=== PATIENT | male | born 1940 | race Caucasian/White ===

== ENCOUNTER 2020-04-09 13:32 | Emergency (ER) | payer MEDICARE, SELFPAY ==
--- NOTE | ~2020-04-09 | CT_ITS ---
EXAMINATION: CT CHEST WITHOUT CONTRAST CLINICAL INFORMATION: abnormal CXR, eval for pna . COMPARISON: I do not have any recent chest x-ray for comparison. I do have the visualized lung apices on the 06/02/[address] scan and the visualized lung bases on the 03/21/2015 CT scan of the abdomen. TECHNIQUE: Multidetector volumetric imaging was performed from the thoracic inlet through the lung bases without contrast. Sagittal and coronal reformatted images were obtained on the technologist workstation. Soft tissue and lung algorithms evaluated. Thick slab MIP images were performed to increase nodule conspicuity. This CT examination was performed using dose optimization techniques as appropriate, variously including the following: *Automated exposure control *Adjustment of mA and/or kV according to patient size (this includes techniques or standardized protocols for targeted exams where dose is matched to indication/reason for exam; i.e. extremities or head) *Use of iterative reconstruction technique DLP: 349 mGy-cm. FINDINGS: LUNG: Background centrilobular emphysematous changes are seen. There are increased subpleural interstitial markings/reticulations seen without discrete honeycombing. Some of these changes are likely present in retrospect on the 2016 CT scan although these do appear to have progressed since that time. No bronchiectasis. Central airways are unremarkable. No dense consolidation. Several scattered tiny calcified granulomas incidentally noted on the right. MEDIASTINUM: Patient is status post sternotomy and CABG with marked vascular calcification in the coronary vessels. No bulky adenopathy with shotty mediastinal lymph nodes noted. PERICARDIUM/PLEURA: No significant effusion. No pleural mass or thickening. THYROID/VISUALIZED LOWER NECK: Unremarkable. CHEST WALL/AXILLA: Unremarkable. VISUALIZED UPPER ABDOMEN: Gallstones seen within the dependent portion of the contracted but otherwise unremarkable gallbladder CT/CT chest wo con IMPRESSION: Peripheral increased interstitial/reticular changes more suggestive of underlying interstitial lung disease such as UIP. I do not appreciate any discrete honeycombing or bronchiectasis at this time. Although in retrospect there were milder changes present on 2016, these have increased since that time. Superimposed atypical infectious etiology would be considered less likely but should be clinically correlated.
--- NOTE | 2020-04-09 14:04 | ECG_ITS ---
Test Reason : SOB Blood Pressure : / mmHG Vent. Rate : 061 BPM Atrial Rate : 061 BPM P-R Int : 228 ms QRS Dur : 140 ms QT Int : 452 ms P-R-T Axes : 046 001 130 degrees QTc Int : 455 ms Sinus rhythm with 1st degree A-V block Possible Left atrial enlargement Left bundle branch block Abnormal ECG No previous ECGs available Referred By: Emilia Herrera Electronically Signed By:OSBALDO MARTINS MD
--- NOTE | 2020-04-09 14:07 | ED.URI ---
HPI - URI/Sore Throat General Chief Complaint: Dyspnea Stated Complaint: cough - sent from [employer] [facility] Time Seen by Provider: 04/09/20 13:56 Source: patient Mode of arrival: ambulatory Limitations: no limitations History of Present Illness HPI Narrative: 79-year-old male with past medical history of aortic valve replacement, CABG x2, hypothyroidism, hypertension, hyperlipidemia here with productive cough with white sputum x4 days sent from urgent care for abnormal chest x-ray. COVID test reportedly negative. Chest x-rays concerning for moderate pulmonary edema with underlying pneumonia not excluded. No shortness of breath, chest pain, leg swelling, weight gain. Related Data Previous Rx's Medication Instructions Recorded benzonatate [Tessalon Perles] 100 mg PO TID PRN #10 cap 04/09/20 Allergies Allergy/AdvReac Type Severity Reaction Status Date / Time meperidine [From Demerol] AdvReac Unknown Verified 04/09/20 14:18 morphine AdvReac Unknown Verified 04/09/20 14:18 pregabalin [From Lyrica CR] AdvReac Unknown Verified 04/09/20 14:18 Review of Systems Review of Systems: Yes all other systems are reviewed and are negative Constitutional: Constitutional: Reports no additional constitutional complaints, Denies body ache(s), Denies chills, Denies fever(s), Denies headache(s) and Denies weakness Eyes: Eyes: Reports no additional eye complaints and Denies change in vision ENT: Reports system reviewed and no additional complaints, except as documented, Denies dizziness, Denies headache(s), Denies nasal congestion, Denies nasal discharge and Denies neck pain Cardiovascular: Cardiovascular: Reports no additional cardiovascular complaints, Denies chest pain, Denies leg edema and Denies dyspnea Respiratory: Respiratory: Reports no additional respiratory complaints, Reports cough and Denies dyspnea Gastrointestinal: Gastrointestinal: Reports no additional gastrointestinal complaints, Denies abdominal pain, Denies diarrhea, Denies nausea and Denies vomiting Genitourinary: Genitourinary: Denies urinary incontinence Musculoskeletal: Musculoskeletal: Reports no additional musculoskeletal complaints, Denies back pain, Denies arthralgias, Denies joint swelling, Denies neck pain, Denies numbness and Denies tingling Integumentary/Breasts: Skin/Breast: Reports system reviewed and no additional complaints, except as docu and Denies rash Neurologic: Reports system reviewed and no additional complaints, except as documented, Denies Abnormal speech present, Denies dizziness, Denies headache(s), Denies numbness, Denies tingling and Denies weakness PMFSH Past Medical History Attestation statement: The following information was validated with the patient. Source: old records reviewed and nursing notes reviewed Medical History Hyperlipidemia Hypertension Hypothyroid Surgical History H/O aortic valve repair Hx of CABG Social History Social History Advance Directives: No Advance Directives Information Provided: No Physical Exam Vital Signs: Vital Signs: Last Vital Signs Temp 97.9 F 04/09/20 15:27 Pulse 62 04/09/20 15:27 Resp 16 04/09/20 15:27 BP 137/66 04/09/20 15:27 Pulse Ox 96 04/09/20 15:27 Body Mass Index 30.1 Const: General: cooperative, healthy appearing, comfortable and no acute distress Orientation/consciousness: patient oriented x3 Limitations: no limitations HENMT: Head: Yes normal to inspection Ears: hearing grossly normal bilaterally General nose exam: Normal external nose present Face and sinus: Yes normal facial exam Mouth: Normal oral and palatal mucosa present Throat: Yes posterior oropharynx normal Eyes: General: appearance normal, both eyes and all related structures Pupils: Equal, round and reactive pupils present Neck: Neck: Yes normal visual inspection Chest: Chest palpation & inspection: normal inspection of the chest Resp: Other: Bases are diminished Effort & Inspection: normal respiratory effort Cardio: Rate: regular rate Rhythm: regular rhythm Peripheral pulses: Peripheral pulses 2+ throughout GI: Inspection: Yes normal to inspection Palpation (GI): Soft to palpation and nontender Auscultation: normal bowel sounds Back/Spine/Pelvis: Thoracic/Lumbar Spine: thoracic and lumbar spine normal to inspection Skin: General skin exam: no rashes or lesions noted Neuro: General: patient oriented x3, no focal motor deficits and normal sensation to monofilament Cranial nerves: Yes Equal, round and reactive pupils present Cognition (Neuro): normal cognition Speech: No Abnormal speech present Gait exam (Neuro): Normal gait present Motor exam (neuro): 5/5 motor strength present throughout Extrem: General: Yes normal to inspection Course Course Course Narrative: 79 yo male with past medical history of aortic valve replacement, hypertension, hyperlipidemia, hypothyroidism here with complaints of productive cough x4 days with white sputum. No shortness of breath or chest pain. No weight gain or leg swelling. Chest x-ray at Urgent Care concerning for pulmonary edema versus pneumonia. COVID test negative. Ambulatory O2 saturation on arrival 92% after walking from waiting room, improved to 96% at rest. Lung sounds are diminished patient able to speak full sentences. Will check CT chest, EKG, labs, COVID screen 1700-CT CHest shows peripheral increased interstitial/reticular changes more suggestive of underlying interstitial lung disease such as UIP. I do not appreciate any discrete honeycombing or bronchiectasis at this time. Although in retrospect there were milder changes present on 2015, these have increased since that time. Superimposed atypical infectious etiology would be considered less likely but should be clinically correlated. Less likely superimposed infection with no leukocytosis, afebrile. COVID screen negative. Labs unremarkable with exception of mildly elevated BNP. No clinical signs/symptoms of failure so less likely CHF. Reviewed findings with the patient and his . I did recommend that they follow up outpatient with pulmonology for further evaluation and possible biopsy. Will hold on steroids as this may alter results. We discussed treating his symptoms at home. He has no shortness of breath and was able to ambulate back and forth to the bathroom with no difficulty. Stable saturations. was given a copy of his CT report. Reviewed worrisome signs and symptoms and when to return to the emergency department. Comfortable with discharge home. MDM - URI/Sore Throat MDM Narrative Medical decision making narrative: CHF, PNA, viral syndrome Medical Records Attestation: I reviewed the patient's medical records. Lab Data Attestation: I reviewed the patient's lab results. Result diagrams: 04/09/20 14:44 04/09/20 15:34 Labs: Lab Results 04/09/20 04/09/20 04/09/20 Range/Units 14:44 14:44 14:44 WBC 9.4 (4.8-10.8) X10*3/uL RBC 4.55 L (4.60-5.80) X10*6/uL Hgb 13.8 L (14.0-18.0) g/dl Hct 41.7 L (42-52) % MCV 91.6 (80-98) fL MCH 30.3 (27.0-33.0) pg MCHC 33.1 (31.0-36.0) g/dl RDW 13.2 (11.0-16.0) % Plt Count 198 (160-400) X10*3/uL MPV 9.6 (9.4-12.4) fL Immature Gran % (Auto) 0.2 (0.0-0.4) % Neut % (Auto) 74.0 H (45-73) % Lymph % (Auto) 14.0 L (20-40) % [place] % (Auto) 7.4 (2-11) % Eos % (Auto) 4.1 H (0-4) % Baso % (Auto) 0.3 (0-2) % Lymph # (Auto) 1.3 (1.2-4.9) X10*3/uL [place] # (Auto) 0.7 (0.1-1.2) X10*3/uL Eos # (Auto) 0.4 (0.0-0.4) X10*3/uL Baso # (Auto) 0.0 (0.0-0.2) X10*3/uL Abs Immat Gran (auto) 0.02 (0.00-0.03) X10*3/uL Absolute Neuts (auto) 6.9 (2.0-8.3) X10*3/uL Absolute Nucleated RBC 0.000 (0.0-0.012) X10*3/uL Nucleated RBC % (auto) 0.0 (0.0-0.2) /100WBC PT 13.8 H (10.8-13.0) SEC INR 1.2 H (0.9-1.1) Sodium (135-145) mmol/L Potassium (3.3-5.1) mmol/L Chloride (96-108) mmol/L Carbon Dioxide (22-29) mmol/L Anion Gap (12-20) BUN (9-16) mg/dL Creatinine (0.5-1.4) mg/dL Estim Creat Clear Calc Estimated GFR Random Glucose (60-115) mg/dL Lactic Acid (0.5-2.0) mmol/L Calcium (8.4-10.2) mg/dL Total Bilirubin (0.0-1.0) mg/dL Direct Bilirubin (0.0-0.5) mg/dL AST (5-37) U/L ALT (0-40) U/L Alkaline Phosphatase (39-117) U/L B-Natriuretic Peptide 127 H (<100) pg/mL Total Protein (6.5-8.0) g/dL Albumin (3.5-5.0) g/dL Coronavirus (PCR) (Negative) Influenza Type A (PCR) (Negative) Influenza Type B (PCR) (Negative) RSV RNA Qual (PCR) (Negative) 04/09/20 04/09/20 04/09/20 Range/Units 14:44 14:57 15:34 WBC (4.8-10.8) X10*3/uL RBC (4.60-5.80) X10*6/uL Hgb (14.0-18.0) g/dl Hct (42-52) % MCV (80-98) fL MCH (27.0-33.0) pg MCHC (31.0-36.0) g/dl RDW (11.0-16.0) % Plt Count (160-400) X10*3/uL MPV (9.4-12.4) fL Immature Gran % (Auto) (0.0-0.4) % Neut % (Auto) (45-73) % Lymph % (Auto) (20-40) % [place] % (Auto) (2-11) % Eos % (Auto) (0-4) % Baso % (Auto) (0-2) % Lymph # (Auto) (1.2-4.9) X10*3/uL [place] # (Auto) (0.1-1.2) X10*3/uL Eos # (Auto) (0.0-0.4) X10*3/uL Baso # (Auto) (0.0-0.2) X10*3/uL Abs Immat Gran (auto) (0.00-0.03) X10*3/uL Absolute Neuts (auto) (2.0-8.3) X10*3/uL Absolute Nucleated RBC (0.0-0.012) X10*3/uL Nucleated RBC % (auto) (0.0-0.2) /100WBC PT (10.8-13.0) SEC INR (0.9-1.1) Sodium 139 (135-145) mmol/L Potassium 4.5 (3.3-5.1) mmol/L Chloride 103 (96-108) mmol/L Carbon Dioxide 26 (22-29) mmol/L Anion Gap 15 (12-20) BUN 16 (9-16) mg/dL Creatinine 0.77 (0.5-1.4) mg/dL Estim Creat Clear Calc 93.9 Estimated GFR > 60 Random Glucose 95 (60-115) mg/dL Lactic Acid 0.9 (0.5-2.0) mmol/L Calcium 8.8 (8.4-10.2) mg/dL Total Bilirubin 1.1 H (0.0-1.0) mg/dL Direct Bilirubin 0.4 (0.0-0.5) mg/dL AST 27 (5-37) U/L ALT 18 (0-40) U/L Alkaline Phosphatase 77 (39-117) U/L B-Natriuretic Peptide (<100) pg/mL Total Protein 6.9 (6.5-8.0) g/dL Albumin 3.9 (3.5-5.0) g/dL Coronavirus (PCR) NEGATIVE (Negative) Influenza Type A (PCR) NEGATIVE (Negative) Influenza Type B (PCR) NEGATIVE (Negative) RSV RNA Qual (PCR) NEGATIVE (Negative) Discharge Plan Discharge Clinical Impression: Interstitial lung disease Patient Disposition: Home, Self-Care Instructions: Chronic Lung Disease and Infection Prevention (ED) Additional Instructions: Your CT scan showed no signs of fluid or infection. There were some signs of interstitial lung disease. He will need to be seen by pulmonology to evaluate this further. Please call them Friday morning to set up an appointment. COVID screen negative here Blood work unremarkable You were given a copy of the report Prescriptions: New benzonatate [Tessalon Perles] 100 mg capsule 100 mg PO TID PRN (Reason: cough) Qty: 10 RF: 0 Referrals: Royer Ross MD [Physician] - 2 days Interventions: ED Discharge Assessment Last Done: 04/09/20 17:17 Discharge Date/Time: 04/09/20 17:18
[2020-04-09 14:11] VITALS: BP 147/58; PULSE 67; RESP 18; TEMP 36.6; O2SAT 96; BMI 30.1
[2020-04-09 14:51] LABS: MANUAL DIFF FLAG NO
[2020-04-09 14:54] LABS: Basophils Percent Auto 0.3 % (0-2); Eosinophils Absolute Auto 0.4 X10*3/uL (0.0-0.4); Eosinophils Percent Auto 4.1 % (0-4); Hematocrit 41.7 % (42-52); Hemoglobin 13.8 g/dl (14.0-18.0); Imm Gran Abs Auto 0.02 X10*3/uL (0.00-0.03); Imm Gran Pct Auto 0.2 % (0.0-0.4); Lymphocytes Absolute Auto 1.3 X10*3/uL (1.2-4.9); Mean Corpuscular HGB Conc 33.1 g/dl (31.0-36.0); Mean Corpuscular Hemoglobin 30.3 pg (27.0-33.0); Mean Corpuscular Volume 91.6 fL (80-98); Mean Platelet Volume 9.6 fL (9.4-12.4); Monocytes Absolute Auto 0.7 X10*3/uL (0.1-1.2); Monocytes Percent Auto 7.4 % (2-11); Neutrophils Absolute Auto 6.9 X10*3/uL (2.0-8.3); Platelet Count 198 X10*3/uL (160-400); Red Blood Count 4.55 X10*6/uL (4.60-5.80); Red Cell Distribution Width 13.2 % (11.0-16.0); White Blood Count 9.4 X10*3/uL (4.8-10.8)
[2020-04-09 15:02] LABS: INTERNATIONAL NORM RATIO 1.2 (0.9-1.1); Prothrombin Time 13.8 SEC (10.8-13.0)
[2020-04-09 15:24] LABS: Lactic Acid 0.9 mmol/L (0.5-2.0)
[2020-04-09 15:27] VITALS: BP 137/66; PULSE 62; RESP 16; TEMP 36.6; O2SAT 96
[2020-04-09 15:31] LABS: B Type Natriuretic Peptide 127 pg/mL (<100)
[2020-04-09 15:34] LABS: Influenza A PCR NEGATIVE (Negative); Influenza B PCR NEGATIVE (Negative); Resp Syncy Virus RNA Qual PCR NEGATIVE (Negative); SARS COV2 PCR INHOUSE NEGATIVE (Negative)
[2020-04-09 16:06] LABS: Alanine Aminotransferase 18 U/L (0-40); Albumin Level 3.9 g/dL (3.5-5.0); Alkaline Phosphatase 77 U/L (39-117); Anion Gap 15 (12-20); Aspartate Amino Transferase 27 U/L (5-37); Bilirubin Direct 0.4 mg/dL (0.0-0.5); Bilirubin Total 1.1 mg/dL (0.0-1.0); Blood Urea Nitrogen 16 mg/dL (9-16); Calcium 8.8 mg/dL (8.4-10.2); Carbon Dioxide 26 mmol/L (22-29); Chloride 103 mmol/L (96-108); Creatinine Clr Calc Pharmacy 93.9; Estimated Glomerular Filt Rate > 60; Glucose Random 95 mg/dL (60-115); Potassium 4.5 mmol/L (3.3-5.1); Sodium 139 mmol/L (135-145); Total Protein 6.9 g/dL (6.5-8.0)
== END 2020-04-09 17:18 | disposition home or self-care (01) ==
PROVIDERS: Nurse Practitioner Family; Emergency Provider Emergency Medicine Emergency Medical Services; PCP Internal Medicine
DX: J84.9 Interstitial pulmonary disease, unspecified (principal); R05 Cough; I10 Essential (primary) hypertension; I25.10 Atherosclerotic heart disease of native coronary artery without angina pectoris; E78.5 Hyperlipidemia, unspecified; E03.9 Hypothyroidism, unspecified; Z20.822 Contact with and (suspected) exposure to COVID-19; Z79.899 Other long term (current) drug therapy
CPT/HCPCS: 0241U; 36415; 71250; 80048; 80076; 83605; 83880; 85025; 85610; 87040; 93005; 99284

== ENCOUNTER → 2020-04-19 14:58 | Outpatient (BNVA) | payer MEDICARE, SELFPAY | PROVIDERS: PCP Internal Medicine; Visit Provider Internal Medicine | DX: J30.9 Allergic rhinitis, unspecified (principal); J84.10 Pulmonary fibrosis, unspecified | CPT/HCPCS: 99202 ==

== ENCOUNTER 2020-04-27 12:34 | Outpatient (REF) | payer MEDICARE, SELFPAY ==
[2020-04-27 13:55] LABS: MANUAL DIFF FLAG NO
[2020-04-27 13:59] LABS: Basophils Percent Auto 0.2 % (0-2); Eosinophils Absolute Auto 0.2 X10*3/uL (0.0-0.4); Eosinophils Percent Auto 1.3 % (0-4); Hematocrit 40.1 % (42-52); Hemoglobin 13.5 g/dl (14.0-18.0); Imm Gran Abs Auto 0.05 X10*3/uL (0.00-0.03); Imm Gran Pct Auto 0.4 % (0.0-0.4); Lymphocytes Percent Auto 16.3 % (20-40); Mean Corpuscular HGB Conc 33.7 g/dl (31.0-36.0); Mean Corpuscular Hemoglobin 30.5 pg (27.0-33.0); Mean Corpuscular Volume 90.7 fL (80-98); Mean Platelet Volume 9.4 fL (9.4-12.4); Monocytes Absolute Auto 0.8 X10*3/uL (0.1-1.2); Monocytes Percent Auto 6.5 % (2-11); Neutrophils Absolute Auto 9.2 X10*3/uL (2.0-8.3); Neutrophils Percent Auto 75.3 % (45-73); Platelet Count 322 X10*3/uL (160-400); Red Blood Count 4.42 X10*6/uL (4.60-5.80); Red Cell Distribution Width 13.1 % (11.0-16.0); White Blood Count 12.2 X10*3/uL (4.8-10.8)
[2020-04-27 14:17] LABS: C Reactive Protein 7.49 mg/dL (< or = 0.50)
[2020-04-27 14:41] LABS: Free T4 (Free Thyroxine) 1.07 ng/dL (0.71-1.85); Thyroid Stimulating Hormone 2.81 uIU/mL (0.32-4.0)
[2020-04-27 15:40] LABS: Vitamin B12 680 pg/mL (200-900)
== END 2020-04-27 12:35 | disposition home or self-care (01) ==
LOC: HO.HMGCLDS 12:34
PROVIDERS: PCP Internal Medicine; Visit Provider Internal Medicine
DX: R94.6 Abnormal results of thyroid function studies (principal); E03.9 Hypothyroidism, unspecified; E78.00 Pure hypercholesterolemia, unspecified; R53.83 Other fatigue
CPT/HCPCS: 36415; 82607; 84439; 84443; 85025; 86140

== ENCOUNTER 2020-05-02 10:26 | Outpatient (REF) | payer MEDICARE, SELFPAY ==
--- NOTE | ~2020-05-02 | XR_ITS ---
EXAMINATION: XR CHEST CLINICAL INFORMATION: Shortness of breath. Possible pneumonia. Interstitial lung disease. COMPARISON: CT chest noncontrast 04/09/2020, chest radiographs 06/17/2014, 01/08/2008 TECHNIQUE: 2 views of the chest were obtained. FINDINGS: There is been prior median sternotomy with mediastinal clips, aortic valve replacement, and sternotomy wires. The heart is normal in size. The vascularity is normal. Again, there is coarsening of the interstitial markings as noted on recent CT. This represents change from remote chest radiographs 2014. Since the CT study, there is subtle groundglass opacities suggested apical right upper lobe and right base. There is no confluent lobar segmental airspace consolidation or air bronchograms or effusion. The hilar and mediastinal contours are unremarkable. XR/XR chest 2V IMPRESSION: 1. Diffuse interstitial lung disease. 2. Suspect superimposed groundglass opacities apical right upper lobe and right base since CT exam 04/09/2020. No effusion.
== END 2020-05-02 10:27 | disposition home or self-care (01) ==
LOC: HO.HMGCX 10:26
PROVIDERS: PCP Internal Medicine; Visit Provider Internal Medicine
DX: R05 Cough (principal); J84.10 Pulmonary fibrosis, unspecified
CPT/HCPCS: 71046

== ENCOUNTER 2020-05-11 08:51 | Outpatient (REF) | payer MEDICARE, SELFPAY ==
--- NOTE | 2020-05-11 17:44 | PFT_ITS ---
Forced vital capacity moderately decreased. FEV1, [id number] are normal. MVV moderately decreased. Post bronchodilator therapy, there is no change. Total lung capacity moderately decreased. Residual volume is normal. Diffusion capacity is markedly decreased. CONCLUSION: No evidence of obstructive airway disorder. Moderately severe restrictive pulmonary disorder is noted. Clinical correlation recommended. MD AYE Nguyen/BROOK / [id number]
== END 2020-05-11 08:52 | disposition home or self-care (01) ==
LOC: HO.RESP 08:51
PROVIDERS: PCP Internal Medicine; Visit Provider Internal Medicine
DX: J84.10 Pulmonary fibrosis, unspecified (principal)
CPT/HCPCS: 94060; 94727; 94729; 99212

== ENCOUNTER → 2020-05-30 13:14 | Outpatient (BNVA) | payer MEDICARE, SELFPAY | PROVIDERS: PCP Internal Medicine; Visit Provider Internal Medicine | DX: J84.10 Pulmonary fibrosis, unspecified (principal); J30.9 Allergic rhinitis, unspecified; J18.9 Pneumonia, unspecified organism | CPT/HCPCS: 99212 ==

== ENCOUNTER 2020-06-08 12:58 | Outpatient (REF) | payer MEDICARE, SELFPAY ==
[2020-06-08 14:19] LABS: MANUAL DIFF FLAG NO
[2020-06-08 14:28] LABS: Basophils Percent Auto 0.2 % (0-2); Eosinophils Absolute Auto 0.2 X10*3/uL (0.0-0.4); Eosinophils Percent Auto 2.1 % (0-4); Hematocrit 42.5 % (42-52); Hemoglobin 13.5 g/dl (14.0-18.0); Imm Gran Abs Auto 0.03 X10*3/uL (0.00-0.03); Imm Gran Pct Auto 0.3 % (0.0-0.4); Lymphocytes Absolute Auto 1.3 X10*3/uL (1.2-4.9); Lymphocytes Percent Auto 12.7 % (20-40); Mean Corpuscular HGB Conc 31.8 g/dl (31.0-36.0); Mean Corpuscular Hemoglobin 29.6 pg (27.0-33.0); Mean Corpuscular Volume 93.2 fL (80-98); Mean Platelet Volume 9.5 fL (9.4-12.4); Monocytes Absolute Auto 0.6 X10*3/uL (0.1-1.2); Monocytes Percent Auto 5.7 % (2-11); Neutrophils Absolute Auto 8.1 X10*3/uL (2.0-8.3); Platelet Count 212 X10*3/uL (160-400); Red Blood Count 4.56 X10*6/uL (4.60-5.80); Red Cell Distribution Width 14.9 % (11.0-16.0); White Blood Count 10.2 X10*3/uL (4.8-10.8)
[2020-06-08 14:55] LABS: Alanine Aminotransferase 28 U/L (0-40); Albumin Level 3.8 g/dL (3.5-5.0); Alkaline Phosphatase 65 U/L (39-117); Anion Gap 13 (12-20); Aspartate Amino Transferase 28 U/L (5-37); Bilirubin Total 0.7 mg/dL (0.0-1.0); Blood Urea Nitrogen 14 mg/dL (9-16); C Reactive Protein 1.23 mg/dL (< or = 0.50); Calcium 9.3 mg/dL (8.4-10.2); Carbon Dioxide 28 mmol/L (22-29); Chloride 101 mmol/L (96-108); Estimated Glomerular Filt Rate > 60; Glucose Random 102 mg/dL (60-115); Potassium 4.4 mmol/L (3.3-5.1); Sodium 138 mmol/L (135-145); Total Protein 7.5 g/dL (6.5-8.0)
== END 2020-06-08 12:59 | disposition home or self-care (01) ==
LOC: HO.HMGCLDS 12:58
PROVIDERS: PCP Internal Medicine; Visit Provider Internal Medicine
DX: R05 Cough (principal); R13.10 Dysphagia, unspecified; R73.03 Prediabetes
CPT/HCPCS: 36415; 80053; 85025; 86140

== ENCOUNTER 2020-06-20 12:04 | Outpatient (REF) | payer MEDICARE, SELFPAY ==
--- NOTE | ~2020-06-20 | MR_ITS ---
MR BRAIN WITHOUT AND WITH IV CONTRAST CLINICAL INFORMATION: Abnormal reflexes. Right-sided weakness. Cortical basal degeneration. COMPARISON: Brain MRI 06/25/2017 TECHNIQUE: Multiplanar, multisequence MRI of the brain was obtained before and after the intravenous administration of 10 mL Gadavist. FINDINGS: There is global cerebral volume loss that is progressed in comparison to the previous brain MRI. There is mild background chronic microangiopathy. No basal ganglia atrophy. There is no hydrocephalus, extra-axial surface collection, or herniation. The major flow voids at the skull base are preserved. There is no acute infarct on diffusion-weighted imaging. There is no intracranial hemorrhage on the gradient recalled echo acquisition. The midline structures are normal. The cerebellar tonsils are normally positioned. The cerebellum and brainstem are normal. The craniocervical junction is normal. Osseous marrow signal intensity is homogenous. The visualized soft tissues are unremarkable. MR/MR head/brain wo/w con IMPRESSION: - There is global cerebral volume loss that is progressed in comparison to the previous brain MRI. There is new asymmetric atrophy involving the left precentral gyrus, a nonspecific finding which can be associated with corticobasal degeneration. No definite basal ganglia volume loss. - There is mild background chronic microangiopathy. No enhancing lesions.
== END 2020-06-20 12:05 | disposition home or self-care (01) ==
LOC: HO.MRI 12:04
PROVIDERS: Visit Provider Psychiatry & Neurology Neurology
DX: R29.2 Abnormal reflex (principal); G31.85 Corticobasal degeneration; M62.81 Muscle weakness (generalized)
CPT/HCPCS: 70553; A9585

== ENCOUNTER 2020-06-22 14:04 | Outpatient (REF) | payer MEDICARE, SELFPAY ==
--- NOTE | ~2020-06-22 | FL_ITS ---
EXAMINATION: XR BARIUM SWALLOW CLINICAL INFORMATION: Dysphagia. COMPARISON: None TECHNIQUE: Modified barium swallow with speech pathologist. FINDINGS: Patient swallowed a combination of materials from thin liquid to barium-coated cookie. There is no evidence of nasopharyngeal reflux or tracheal aspiration. No laryngeal penetration was identified. FLUOROSCOPY TIME: 1.1 minutes DOSE AREA PRODUCT: 1.519 Gy-cm2 FL/FL barium swallow modified IMPRESSION: Normal modified barium swallow. Please refer to speech pathology report for details.
--- NOTE | 2020-06-22 18:52 | MHC.SL.IMP ---
Date of Plan of Treatment: 06/22/20 Onset of Symptoms/Illness: 03/27/20 Date Treatment Started: 06/22/20 Admitting Diagnosis: Modified Barium Swallow Study Fluoroscopic Evaluation of Swallowing Function CPT Code 74130 Evaluation Year: 2020 Reason for Study: Dysphagia Referring Physician: Dr. 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 Secondary Speech & Language Diagnosis: Reason for Today's Visit: 34056 Modified Barium Swallow Study Comments: Pre-evaluation Dietary Consistencies: Regular Pre-evaluation Liquid Consistency: Thin Pre-evaluation Medication Administration: Whole with Liquid Medical History: COPD Comments: Pt reported closed head injury in 2017 [facility] Fall Risk Assessment Score: Oral Motor Exam Facial Symmetry: Asymmetry- Right Side Facial Movement: Oral-Facial Facial Miscellaneous Observations: Mouth Occlusion: Normal Oral-Facial Teeth Characteristics: Intact/Normal Oral-Facial Teeth Miscellaneous Observation: Oral-Facial Lip Pucker Description: Oral-Facial Smile (Lips) Description: Normal Oral-Facial Puff Cheeks Description: Oral-Facial Lip Miscellaneous Comment: Tongue Size: Normal Tongue Frenum Length: Normal Tongue Excursion Description: Deviates to Right Tongue Range of Movement Description: Normal Tongue Speed of Movement Description: Normal Tongue Strength of Movement (against opposing pressure): Normal Tongue Movement Characteristics: Normal/Absent Tongue Movement Miscellaneous Observation: Oral Expression Ability: Mild Impairment Is patient able to manage secretions?: Yes Is patient able to produce volitional cough?: Yes Food and Liquid Trials: Oral Impairment: Lip Closure: 0=No labial escape Oral Impairment: Tongue Control During Bolus Hold: 2=Posterior escape of less than half of bolus Oral Impairment: Bolus Preparation/Mastication: 0=Timely and efficient chewing and mashing Oral Impairment: Bolus Transport/Lingual Motion: 0=Brisk tongue motion Oral Impairment: Oral Residue: 2=Residue collection on oral structures Oral Impairment:Initiation of Pharyngeal Swallow: 1=Bolus head in valleculae Pharyngeal Impairment: Soft Palate Elevation: 0=No bolus between soft palate (SP)/pharyngeal wall (PW) Pharyngeal Impairment: Laryngeal Elevation: 1=Partial thyroid cartilage/arytenoids to epiglottic petiole movement Pharyngeal Impairment: Anterior Hyoid Excursion: 0=Complete anterior movement Pharyngeal Impairment: Epiglottic Movement: 0=Complete inversion Pharyngeal Impairment: Laryngeal Vestibular Closure:: 0=Complete: no air/contrast in laryngeal vestibule Pharyngeal Impairment: Pharyngeal Stripping Wave: 0=Present: complete Pharyngeal Impairment: Pharyngeal Contraction: Did not test Pharyngeal Impairment: Pharyngoesophageal Segment Openin=Complete distension and complete duration: no obstruction of flow Pharyngeal Impairment: Tongue Base (TB) Retraction: 1=Trace column of contrast/air between TB and posterior PW Pharyngeal Impairment: Pharyngeal Residue: 0=Complete pharyngeal clearance Pharyngeal Impairment: Esophageal Clearance Upright Position: Did not test Impressions and Recommendations Clinical Observations: Time-out: performed at 0230 Evaluation Start: 239; Stop: 243 Patient Positioning: Seated 70-90 degrees Viewing Planes: LATERAL ONLY Contrast: MBSImP? Standardized Protocol using commercially prepared, standardized Barium viscosities, including: Varibar? THIN LIQUID (40% w/v, <15 cps) , Varibar? NECTAR (40% w/v, <150-450 cps) , Varibar? THIN HONEY (40% w/v, <800-1800 cps) , 1/2 Shortbread Cookie (1 x1 x.25 ) MBSImP ID: [id number] Oral Motor Evaluation: Pt presented with mild right sided facial droop in which his reported is fairly new. She also reported that pt will often drool or liquid will pour out of right side of pts mouth without pt noticing. Pt's tongue deviates slightly to the right upon protrusion. Lingual strength and ROM deemed WFL. MBSImP Results: Lip closure for intraoral bolus containment resulted in no labial escape. Tongue control during bolus hold resulted in posterior escape of less than half of the bolus. Bolus preparation and mastication resulted in timely and efficient chewing and mashing. Bolus transport/lingual motion was with brisk tongue motion. Oral residue was a collection on oral structures. Initiation of the pharyngeal swallow occurred when the bolus head was in the valleculae. Soft palate elevation resulted in no bolus between the soft palate and the pharyngeal wall. Laryngeal elevation was decreased, with partial superior movement of the thyroid cartilage/partial approximation of the arytenoids to the epiglottic petiole. Anterior hyoid excursion demonstrated complete anterior movement. Epiglottic movement resulted in complete inversion. Laryngeal vestibular closure was complete, as indicated by no air or contrast within the laryngeal vestibule at the height of the swallow. Pharyngeal stripping wave was present and complete. Pharyngeal contraction could not be determined due to logistical reasons not related to physiologic impairment. Pharyngoesophageal segment opening was completely distended for complete duration with no obstruction of bolus flow. Tongue base retraction allowed a trace column of contrast or air between the retracted tongue base and the posterior pharyngeal wall. Pharyngeal residue was not present. There was complete pharyngeal clearance. Esophageal clearance in the upright position could not be assessed due to logistical reasons not related to physiologic impairment. Oral Impairment Score: 5 Pharyngeal Impairment Score: 1 (absence of score, component 13) Esophageal Impairment Score: --- (absence of score, component 17) Laryngeal Penetration and Aspiration: Neither penetration nor aspiration was observed in today's study with Cookie, Thin. ASSESSMENT: This exam was conducted by speech language pathologist and radiologist with patient seated at 90 degrees for lateral view only. Patient trialed the following liquid and solid consistencies: -5 mL thin liquid barium -thin liquid barium cup sip -pureed solid (applesauce mixed with barium paste) -ground solid (chicken salad mixed with barium paste) -regular solid (Vanessa Doone cookie coated in barium paste) No aspiration or penetration evident during this exam. Mild oral residue noted upon initial swallow of ground solid and regular solid, however pt independently cleared with additional swallow. Premature spillage of less than 1/2 bolus into valleculae prior to initiation of pharyngeal swallow trigger noted with pureed solids. Pharyngeal swallow trigger at level of valleculae with all consistencies trialed. Pt's swallowing function deemed WFL at time of this evaluation. Liquid Intake Recommendation: Thin Liquid Intake Strategies: Unrestricted Dietary Recommendations: Chopped/Advanced (NDD3) Medication Administration: Whole with Liquid Compensatory Strategies Recommended: Sitting Upright (90 deg) Liquids from Cup Liquids from Straw Small Bites and Sips Alternate Liquids/Solids Rate of Ingestion Change Avoid Specific Foods Supervision during eating and or drinking: Intermittent Supervision Recommended Treatments: Recommendation for Speech Therapy: Further Testing Needed Discharged with Instructions for Home Use Text Comment: Due to concerns of slowed speech production, slurred speech, and word finding difficulties, recommend comprehensive outpatient speech/language cognitive evaluation. Frequency/Duration: Date Range for Service Requested: Timeline to reassess: Other Referrals: ENT Neurology Pulmonolgy Estate Conservator Numerical Control Programmer Clinician/Clinical Fellow: Yes: Lydia Adler M.A., CF-DELIVERY AND INSTALLATION SUBCONTRACTOR Supervisory Statement: Speech Language Pathologist:
== END 2020-06-22 14:05 | disposition home or self-care (01) ==
LOC: HO.XRAY 14:04
PROVIDERS: Visit Provider Internal Medicine
DX: R13.10 Dysphagia, unspecified (principal)
CPT/HCPCS: 74230; 92611

== ENCOUNTER → 2020-06-27 13:15 | Outpatient (BNVA) | payer MEDICARE, SELFPAY | PROVIDERS: PCP Internal Medicine; Visit Provider Internal Medicine | DX: J30.9 Allergic rhinitis, unspecified (principal); J84.10 Pulmonary fibrosis, unspecified; J18.9 Pneumonia, unspecified organism | CPT/HCPCS: 99212 ==

== ENCOUNTER → 2020-09-06 13:48 | Outpatient (BNVA) | payer MEDICARE, SELFPAY | PROVIDERS: PCP Internal Medicine; Visit Provider Internal Medicine | DX: J84.10 Pulmonary fibrosis, unspecified (principal); J30.9 Allergic rhinitis, unspecified; R05 Cough | CPT/HCPCS: 99212 ==

== ENCOUNTER → 2021-03-07 12:56 | Outpatient (BNVA) | payer MEDICARE, SELFPAY | PROVIDERS: PCP Internal Medicine; Visit Provider Internal Medicine | DX: J44.9 Chronic obstructive pulmonary disease, unspecified (principal) | CPT/HCPCS: 99212 ==

== ENCOUNTER 2021-04-23 12:33 | Emergency (ER) | payer MEDICARE, SELFPAY ==
--- NOTE | ~2021-04-23 | CT_ITS ---
EXAMINATION: HEAD CT WITHOUT CONTRAST CERVICAL SPINE CT WITHOUT CONTRAST CLINICAL INFORMATION: Fall COMPARISON: None. TECHNIQUE: Contiguous axial imaging of the head was performed without the administration of IV contrast. Axial multidetector volumetric images were also performed through the cervical spine without contrast. Multiplanar reconstructed images in coronal and sagittal orientations were submitted. DOSE: 1343 mGy-cm FINDINGS: HEAD: There are scattered foci of increased attenuation in the subcortical wade matter in bilateral frontoparietal lobes. This is suspected to be artifactual, however, foci of petechial hemorrhages in this region cannot be excluded. Otherwise, no acute intracranial hemorrhage is identified. No edematous territorial infarction.. No abnormal mass-effect or midline shift. No extra-axial fluid collections. Wade to white matter differentiation is well preserved. The ventricles are normal in size and configuration. Patchy mild low attenuation in the deep white matter suggesting chronic microangiopathy. There is a cerebral volume loss with sulcal and ventricular prominence. Bilateral basal ganglia calcification. Stable calcification in the mid brain No acute calvarial fracture. Right maxillary sinus mucosal thickening. Remainder the paranasal sinuses and mastoid air cells are well-aerated. . CERVICAL SPINE: Vertebral body heights are maintained. No fractures of the vertebral bodies or posterior elements. Vertebral alignment is normal. No subluxation. Cervical spine spondylosis, with the more prominent changes of moderate C5-C6, C6-C7 disc degeneration. Multilevel facet degeneration. No significant paravertebral soft tissue swelling. No suspicious thyroid findings.. Groundglass opacities in the right upper lobe. CT/CT cervical spine wo con IMPRESSION: CT HEAD: 1. Scattered foci of increased attenuation in the subcortical wade matter in bilateral frontal and parietal lobes. This is suspected be artifactual, however foci of petechial hemorrhages in this region cannot be excluded. Otherwise, no acute intracranial hemorrhage is identified. No extra-axial fluid collections. Further evaluation with follow-up CT or MRI can be considered as clinically warranted. 2. Chronic changes in the brain as detailed above CT cervical spine: 1. No acute fracture or malalignment in the cervical spine. 2. Groundglass opacities in the right upper lobe, could reflect infectious or inflammatory process.
--- NOTE | ~2021-04-23 | XR_ITS ---
EXAMINATION: XR CHEST CLINICAL INFORMATION: 80-year-old male, status post fall COMPARISON: 05/02/2020 TECHNIQUE: Frontal view of the chest was obtained. FINDINGS: There is low lung volume bilaterally with increased interstitial markings. Patient is status post median sternotomy and aortic valve replacement. Visualized ribs are intact.. XR/XR chest 1V IMPRESSION: No active cardiopulmonary disease. Mildly increased interstitial markings
--- NOTE | ~2021-04-23 | MR_ITS ---
EXAMINATION: MR BRAIN WITHOUT CONTRAST CLINICAL INFORMATION: Fall. Evaluate for intracranial hemorrhage. COMPARISON: CT from 04/23/2021. MRI dated 06/20/2020. TECHNIQUE: Multiplanar, multisequence imaging of the brain was performed without contrast. FINDINGS: No diffusion abnormalities are identified to suggest an acute or subacute infarct. Mild right parietal scalp soft tissue swelling and subgaleal fluid from contusion injury noted. The ventricles are normal in size. No mass effect or midline shift is seen. No brain parenchymal signal abnormality is noted. No extra-axial fluid collections are seen. 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 The brainstem is normal. The gradient refocused acquisition is normal. The craniovertebral junction, marrow signal, and midline structures are normal. The major intracranial flow voids at the level of the [place] are preserved. The dural venous sinus flow voids are maintained. There is mild mucosal thickening in the right maxillary antrum and in the ethmoid air cells. There is trace fluid in the right mastoid air cells as well. There are moderate degenerative changes of the temporomandibular joints. MR/MR head/brain wo con IMPRESSION: Moderate diffuse parenchymal volume loss. No acute intracranial process. Mild right parietal scalp soft tissue swelling/contusion injury.
[2021-04-23 13:06] VITALS: BP 163/64; PULSE 54; RESP 18; TEMP 36.9; O2SAT 96; BMI 29.1
--- NOTE | 2021-04-23 14:23 | ED_ITS ---
HPI - Fall General Chief Complaint: Fall Stated Complaint: FALL HEAD LACERATION Time Seen by Provider: 04/23/21 14:21 Source: patient and family Mode of arrival: ambulatory Limitations: no limitations History of Present Illness MD complaint: fall Onset (ago): hour(s) (today at noon) Fall from: standing Fall witnessed: yes, by bystander (PT team) Place fall occurred: other (PT facility) Loss of consciousness: none Prolonged down time: no Symptoms prior to fall: none Context: other (lost balance) Location of injury: head Severity: moderate Quality: aching Associated symptoms (after fall): headache and confusion Related Data Home Medications Medication Instructions Recorded Confirmed ascorbic acid (vitamin C) 500 mg 500 mg PO DAILY cap 04/19/20 03/07/21 capsule aspirin 81 mg tablet,delayed 81 mg PO DAILY 04/19/20 03/07/21 release atorvastatin 80 mg tablet (Lipitor) 80 mg PO BEDTIME 04/19/20 03/07/21 cetirizine 10 mg tablet (Zyrtec) 10 mg PO DAILY PRN 04/19/20 03/07/21 cholecalciferol (vitamin D3) 50 50 mcg PO DAILY 04/19/20 03/07/21 mcg (2,000 unit) capsule docusate sodium 100 mg capsule 100 mg PO BID 04/19/20 03/07/21 levothyroxine 25 mcg tablet 25 mcg PO DAILY 04/19/20 03/07/21 (Synthroid) multivitamin (Daily Multi-Vitamin) 1 tab PO DAILY 04/19/20 03/07/21 psyllium husk 0.52 gram capsule 1.04 g PO DAILY 04/19/20 03/07/21 (Daily Fiber) vitamins A,C,D-erxe-betkzr 7,160 1 tab PO BID tab 04/19/20 03/07/21 unit-113 mg-100 unit tablet (PreserVision AREDS) carvedilol 6.25 mg tablet 6.25 mg PO BID 05/11/20 03/07/21 Allergies Allergy/AdvReac Type Severity Reaction Status Date / Time meperidine [From Demerol] AdvReac Unknown Unknown Verified 03/07/21 13:19 morphine AdvReac Unknown Unknown Verified 03/07/21 13:19 pregabalin [From Lyrica CR] AdvReac Unknown Unknown Verified 03/07/21 13:19 Review of Systems Review of Systems: Constitutional : No Fever, No Chills, No Fatigue ENT/Mouth : No sore throat, No Rhinorrhea Eyes: No Eye Pain, No Swelling, No Redness Cardiovascular : No Chest Pain, No SOB, No Dyspnea on Exertion Respiratory : No Cough, No Sputum Gastrointestinal : No Nausea, No Vomiting, No Diarrhea, No abdominal Pain Genitourinary : No Dysuria, No Urinary Frequency, No Hematuria, Musculoskeletal : No joint pain, No Myalgias, No Joint Swelling Skin : No Skin Lesions, No rash Neuro : No Weakness, No Numbness, No Dizziness, positive Headache, pos confusion Psych : No Anxiety/Panic, No Depression Heme/Lymph: No Bruising, No Bleeding,No Lymphadenopathy Endocrine : No Polyuria, No Polydipsia All other systems reviewed and are negative [facility], [facility] Past Medical History Medical History Allergic rhinitis Corticobasal degeneration Cough Hyperlipidemia Hypertension Hypothyroid Pneumonitis Pulmonary fibrosis Surgical History H/O aortic valve repair Hx of CABG Social History Social History (Updated 04/23/21 @ 14:46 by Teri Garcia DO) Patient Tobacco Use Status: Never used Tobacco Advance Directives: Yes Advance Directives on File: Yes Advance Directives Date on File: 04/09/20 Physical Exam Vital Signs: Vital Signs: Last Vital Signs Temp 98.5 F 04/23/21 13:06 Pulse 54 04/23/21 13:06 Resp 18 04/23/21 13:06 BP 163/64 H 04/23/21 13:06 Pulse Ox 96 04/23/21 13:06 BMI result Body Mass Index 29.1 Appearance: Alert. Oriented X3 (initially slow to respond). No acute distress. Eyes: Pupils equal, round and reactive to light. ENT: Pharynx normal. on posterior scalp small 1cm superficial laceration with hematoma noted as well Neck: Normal inspection. Neck supple. CVS: Normal heart rate and rhythm. Pulses normal. Respiratory: No respiratory distress. Breath sounds normal. Abdomen: Soft and non-tender. Skin: Skin warm and dry. Normal skin color. Normal skin turgor. Extremities: No lower extremity edema. No calf ttp Neuro: Oriented X 3 (initially slow to respond). No motor deficit. No sensory deficit. Course Course Course Narrative: areas of increased density new from prior study scattered will order MRI at this time to rule out petechial hemorrhages signed out to Dr. Bruce pending workup including CXR/MRI MDM - Fall MDM Narrative Medical decision making narrative: 80 yo male with hx of pulm fibrosis, hx of falls but not recently uses a cane, in PT has corticobasilar degeneration at PT today was putting his coat on and lost his balance - hit back of head no LOC no oral anticoagulation but seems slightly confused at this time CT head/cspine ordered, EKG, UA and basic labs. Patient denies symptoms such as dizziness, CP/SOB prior to fall. Lab Data Result diagrams: 04/23/21 15:04 04/23/21 15:31 Labs: Lab Results 04/23/21 04/23/21 04/23/21 Range/Units 15:04 15:04 15:31 WBC 8.5 (4.8-10.8) X10*3/uL RBC 4.56 L (4.60-5.80) X10*6/uL Hgb 14.1 (14.0-18.0) g/dl Hct 42.7 (42.0-52.0) % MCV 93.6 (80.0-98.0) fL MCH 30.9 (27.0-33.0) pg MCHC 33.0 (31.0-36.0) g/dl RDW 13.4 (11.0-16.0) % Plt Count 203 (160-400) X10*3/uL MPV 9.8 (9.4-12.4) fL Immature Gran % (Auto) 0.4 (0.0-0.4) % Neut % (Auto) 66.1 (45-73) % Lymph % (Auto) 21.1 (20-40) % [place] % (Auto) 7.6 (2-11) % Eos % (Auto) 4.3 H (0-4) % Baso % (Auto) 0.5 (0-2) % Lymph # (Auto) 1.8 (1.2-4.9) X10*3/uL [place] # (Auto) 0.7 (0.1-1.2) X10*3/uL Eos # (Auto) 0.4 (0.0-0.4) X10*3/uL Baso # (Auto) 0.0 (0.0-0.2) X10*3/uL Abs Immat Gran (auto) 0.03 (0.00-0.03) X10*3/uL Absolute Neuts (auto) 5.6 (2.0-8.3) x10*3/uL Absolute Nucleated RBC 0.000 (0.0-0.012) X10*3/uL Nucleated RBC % (auto) 0.0 (0.0-0.2) /100WBC PT 12.1 (9.9-13.0) SEC INR 1.1 (0.9-1.1) Sodium (135-145) mmol/L Potassium (3.3-5.1) mmol/L Chloride (96-108) mmol/L Carbon Dioxide (22-29) mmol/L Anion Gap (12-20) BUN (9-16) mg/dL Creatinine (0.5-1.4) mg/dL Estim Creat Clear Calc Estimated GFR Random Glucose (60-115) mg/dL Calcium (8.4-10.2) mg/dL Urine Color YELLOW Urine Appearance CLEAR Urine pH 6.0 (5.0-8.0) Ur Specific [place] 1.025 (1.005-1.025) Urine Protein NEG (NEG-TRACE) MG/DL Urine Glucose (UA) NEG (NEG) MG/DL Urine Ketones NEG (NEG) MG/DL Urine Blood NEG (NEG) Urine Nitrite NEG (NEG) Ur Leukocyte Esterase NEG (NEG) 04/23/21 Range/Units 15:31 WBC (4.8-10.8) X10*3/uL RBC (4.60-5.80) X10*6/uL Hgb (14.0-18.0) g/dl Hct (42.0-52.0) % MCV (80.0-98.0) fL MCH (27.0-33.0) pg MCHC (31.0-36.0) g/dl RDW (11.0-16.0) % Plt Count (160-400) X10*3/uL MPV (9.4-12.4) fL Immature Gran % (Auto) (0.0-0.4) % Neut % (Auto) (45-73) % Lymph % (Auto) (20-40) % [place] % (Auto) (2-11) % Eos % (Auto) (0-4) % Baso % (Auto) (0-2) % Lymph # (Auto) (1.2-4.9) X10*3/uL [place] # (Auto) (0.1-1.2) X10*3/uL Eos # (Auto) (0.0-0.4) X10*3/uL Baso # (Auto) (0.0-0.2) X10*3/uL Abs Immat Gran (auto) (0.00-0.03) X10*3/uL Absolute Neuts (auto) (2.0-8.3) x10*3/uL Absolute Nucleated RBC (0.0-0.012) X10*3/uL Nucleated RBC % (auto) (0.0-0.2) /100WBC PT (9.9-13.0) SEC INR (0.9-1.1) Sodium 140 (135-145) mmol/L Potassium 4.9 (3.3-5.1) mmol/L Chloride 105 (96-108) mmol/L Carbon Dioxide 26 (22-29) mmol/L Anion Gap 14 (12-20) BUN 18 H (9-16) mg/dL Creatinine 0.78 (0.5-1.4) mg/dL Estim Creat Clear Calc 89.8 Estimated GFR > 60 Random Glucose 99 (60-115) mg/dL Calcium 9.8 (8.4-10.2) mg/dL Urine Color Urine Appearance Urine pH (5.0-8.0) Ur Specific [place] (1.005-1.025) Urine Protein (NEG-TRACE) MG/DL Urine Glucose (UA) (NEG) MG/DL Urine Ketones (NEG) MG/DL Urine Blood (NEG) Urine Nitrite (NEG) Ur Leukocyte Esterase (NEG) ECG Data Attestation: I personally reviewed and interpreted this ECG as follows: ECG interpretation date: 04/23/21 ECG interpretation time: 15:01 Interpretation: Rate: 54 Rhythm: sinus bradycardia Harvey: normal Normal P waves. 1st degree AVB LBBB ST T wave : nonspecific, no ASHLEY qTC: normal prior studies: unchanged from prior 2020 The study has been interpreted contemporaneously by me. . Discharge Plan Discharge Clinical Impression: Head injury Qualifiers: Encounter type: initial encounter Qualified Code(s): S09.90XA - Unspecified injury of head, initial encounter Laceration of scalp Qualifiers: Encounter type: initial encounter Qualified Code(s): S01.01XA - Laceration without foreign body of scalp, initial encounter Instructions: Laceration (ED), Head Injury (ED) Prescriptions: No Action levothyroxine [Synthroid] 25 mcg tablet 25 mcg PO DAILY 0RF atorvastatin [Lipitor] 80 mg tablet 80 mg PO BEDTIME 0RF aspirin 81 mg tablet,delayed release (DR/EC) 81 mg PO DAILY 0RF multivitamin [Daily Multi-Vitamin] Tablet 1 tab PO DAILY 0RF PreserVision AREDS 7,160 unit- 113 mg-100 unit tablet 1 tab PO BID 0RF Rx Instructions: administer with AM and PM meals psyllium husk [Daily Fiber] 0.52 gram capsule 1.04 g PO DAILY 0RF ascorbic acid (vitamin C) 500 mg capsule 500 mg PO DAILY 0RF cholecalciferol (vitamin D3) 50 mcg (2,000 unit) capsule 50 mcg PO DAILY 0RF docusate sodium 100 mg capsule 100 mg PO BID 0RF cetirizine [Zyrtec] 10 mg tablet 10 mg PO DAILY PRN0RF carvedilol 6.25 mg tablet 6.25 mg PO BID 0RF Rx Instructions: must administer with a meal/food
--- NOTE | 2021-04-23 14:32 | ECG_ITS ---
Test Reason : fall Blood Pressure : / mmHG Vent. Rate : 054 BPM Atrial Rate : 054 BPM P-R Int : 244 ms QRS Dur : 140 ms QT Int : 484 ms P-R-T Axes : 030 -04 130 degrees QTc Int : 458 ms Sinus bradycardia with 1st degree A-V block Left bundle branch block Abnormal ECG When compared with ECG of 09-APR-2020 14:16, No significant change was found Referred By: Teri Garcia Electronically Signed By:Mo Hamilton
[2021-04-23 15:09] LABS: MANUAL DIFF FLAG NO
[2021-04-23] MEDS: Lidocaine 4 % Cream KIT 1 APPL TOPICAL (15:13)
[2021-04-23 15:14] LABS: Basophils Percent Auto 0.5 % (0-2); Eosinophils Absolute Auto 0.4 X10*3/uL (0.0-0.4); Eosinophils Percent Auto 4.3 % (0-4); Hematocrit 42.7 % (42.0-52.0); Hemoglobin 14.1 g/dl (14.0-18.0); Imm Gran Abs Auto 0.03 X10*3/uL (0.00-0.03); Imm Gran Pct Auto 0.4 % (0.0-0.4); Lymphocytes Absolute Auto 1.8 X10*3/uL (1.2-4.9); Lymphocytes Percent Auto 21.1 % (20-40); Mean Corpuscular Hemoglobin 30.9 pg (27.0-33.0); Mean Corpuscular Volume 93.6 fL (80.0-98.0); Mean Platelet Volume 9.8 fL (9.4-12.4); Monocytes Absolute Auto 0.7 X10*3/uL (0.1-1.2); Monocytes Percent Auto 7.6 % (2-11); Neutrophils Absolute Auto 5.6 x10*3/uL (2.0-8.3); Neutrophils Percent Auto 66.1 % (45-73); Platelet Count 203 X10*3/uL (160-400); Red Blood Count 4.56 X10*6/uL (4.60-5.80); Red Cell Distribution Width 13.4 % (11.0-16.0); White Blood Count 8.5 X10*3/uL (4.8-10.8)
[2021-04-23 15:18] LABS: Appearance Urine CLEAR; Color Urine YELLOW; Glucose Urine UA NEG (NEG); Leukocyte Esterase Urine NEG (NEG); Nitrite Urine NEG (NEG); Specific Gravity - Urine 1.025 (1.005-1.025); Urine Blood NEG (NEG); Urine Ketones NEG (NEG); Urine Protein NEG (NEG-TRACE)
[2021-04-23 15:49] LABS: INTERNATIONAL NORM RATIO 1.1 (0.9-1.1); Prothrombin Time 12.1 SEC (9.9-13.0)
[2021-04-23 15:52] LABS: Anion Gap 14 (12-20); Blood Urea Nitrogen 18 mg/dL (9-16); Calcium 9.8 mg/dL (8.4-10.2); Carbon Dioxide 26 mmol/L (22-29); Chloride 105 mmol/L (96-108); Creatinine Clr Calc Pharmacy 89.8; Estimated Glomerular Filt Rate > 60; Glucose Random 99 mg/dL (60-115); Potassium 4.9 mmol/L (3.3-5.1); Sodium 140 mmol/L (135-145)
--- NOTE | 2021-04-23 16:47 | PC.NURSE ---
pt currently in MRI
== END 2021-04-23 18:32 | disposition home or self-care (01) ==
PROVIDERS: Emergency Provider Emergency Medicine; PCP Internal Medicine
DX: S09.90XA Unspecified injury of head, initial encounter (principal); S01.01XA Laceration without foreign body of scalp, initial encounter; W18.39XA Other fall on same level, initial encounter; R51.9 Headache, unspecified; G93.89 Other specified disorders of brain; R41.0 Disorientation, unspecified; Z91.81 History of falling; Y93.B9 Activity, other involving muscle strengthening exercises; Y92.538 Other ambulatory health services establishments as the place of occurrence of the external cause; Y99.8 Other external cause status; Z79.82 Long term (current) use of aspirin; Z79.02 Long term (current) use of antithrombotics/antiplatelets
CPT/HCPCS: 12001; 36415; 70450; 70551; 71045; 72125; 80048; 81003; 85025; 85610; 93005; 99284; 99285

== ENCOUNTER 2021-05-07 13:35 | Outpatient (REF) | payer MEDICARE, SELFPAY ==
[2021-05-07 17:20] LABS: Free T4 (Free Thyroxine) 1.11 ng/dL (0.71-1.85); Thyroid Stimulating Hormone 5.43 uIU/mL (0.32-4.0)
== END 2021-05-07 13:36 | disposition home or self-care (01) ==
LOC: HO.HMGCLDS 13:35
PROVIDERS: PCP Internal Medicine; Visit Provider Internal Medicine
DX: E03.9 Hypothyroidism, unspecified (principal)
CPT/HCPCS: 36415; 84439; 84443

== ENCOUNTER 2021-08-07 11:12 | Outpatient (REF) | payer MEDICARE, SELFPAY ==
[2021-08-07 14:14] LABS: Free T4 (Free Thyroxine) 1.14 ng/dL (0.71-1.85); Thyroid Stimulating Hormone 4.76 uIU/mL (0.32-4.0)
== END 2021-08-07 11:13 | disposition home or self-care (01) ==
LOC: HO.HMGCLDS 11:12
PROVIDERS: Visit Provider Internal Medicine
DX: Z13.89 Encounter for screening for other disorder (principal)
CPT/HCPCS: 36415; 84439; 84443

== ENCOUNTER → 2021-09-06 13:00 | Outpatient (BNVA) | payer MEDICARE, SELFPAY | PROVIDERS: PCP Internal Medicine; Visit Provider Internal Medicine | DX: J84.10 Pulmonary fibrosis, unspecified (principal); J30.9 Allergic rhinitis, unspecified; R05.9 Cough, unspecified | CPT/HCPCS: 99212 ==

== ENCOUNTER 2021-11-06 10:15 | Outpatient (REF) | payer MEDICARE, SELFPAY ==
[2021-11-06 11:31] LABS: MANUAL DIFF FLAG NO
[2021-11-06 11:40] LABS: Basophils Percent Auto 0.4 % (0-2); Eosinophils Absolute Auto 0.3 X10*3/uL (0.0-0.4); Eosinophils Percent Auto 3.3 % (0-4); Hemoglobin 14.4 g/dl (14.0-18.0); Imm Gran Abs Auto 0.02 X10*3/uL (0.00-0.03); Imm Gran Pct Auto 0.2 % (0.0-0.4); Lymphocytes Absolute Auto 1.9 X10*3/uL (1.2-4.9); Lymphocytes Percent Auto 22.8 % (20-40); Mean Corpuscular HGB Conc 33.5 g/dl (31.0-36.0); Mean Corpuscular Hemoglobin 30.6 pg (27.0-33.0); Mean Corpuscular Volume 91.3 fL (80.0-98.0); Mean Platelet Volume 9.6 fL (9.4-12.4); Monocytes Absolute Auto 0.5 X10*3/uL (0.1-1.2); Monocytes Percent Auto 6.6 % (2-11); Neutrophils Absolute Auto 5.4 x10*3/uL (2.0-8.3); Neutrophils Percent Auto 66.7 % (45-73); Platelet Count 191 X10*3/uL (160-400); Red Blood Count 4.71 X10*6/uL (4.60-5.80); Red Cell Distribution Width 13.9 % (11.0-16.0); White Blood Count 8.1 X10*3/uL (4.8-10.8)
[2021-11-06 12:01] LABS: Alanine Aminotransferase 27 U/L (0-40); Albumin Level 4.1 g/dL (3.5-5.0); Alkaline Phosphatase 86 U/L (39-117); Anion Gap 13 (12-20); Aspartate Amino Transferase 24 U/L (5-37); Bilirubin Total 0.9 mg/dL (0.0-1.0); Blood Urea Nitrogen 15 mg/dL (9-16); Calcium 9.3 mg/dL (8.4-10.2); Carbon Dioxide 27 mmol/L (22-29); Chloride 104 mmol/L (96-108); Cholesterol 138 mg/dL; Estimated Glomerular Filt Rate > 60; Glucose Fasting 93 mg/dL (60-99); HDL Cholesterol 43 mg/dL; LDL Cholesterol Calculated 78 mg/dl; Potassium 4.1 mmol/L (3.3-5.1); Sodium 140 mmol/L (135-145); Total Protein 7.3 g/dL (6.5-8.0); Triglycerides 87 mg/dL
[2021-11-06 12:08] LABS: Free T4 (Free Thyroxine) 1.09 ng/dL (0.71-1.85); Thyroid Stimulating Hormone 4.83 uIU/mL (0.32-4.0)
== END 2021-11-06 10:16 | disposition home or self-care (01) ==
LOC: HO.HMGCLDS 10:15
PROVIDERS: PCP Internal Medicine; Visit Provider Internal Medicine
DX: I10 Essential (primary) hypertension (principal); E78.00 Pure hypercholesterolemia, unspecified; E03.9 Hypothyroidism, unspecified; N40.0 Benign prostatic hyperplasia without lower urinary tract symptoms
CPT/HCPCS: 36415; 80053; 80061; 84439; 84443; 85025

== ENCOUNTER 2022-01-24 11:01 | Outpatient (REF) | payer MEDICARE, SELFPAY ==
[2022-01-24 14:25] LABS: Thyroid Stimulating Hormone 5.05 uIU/mL (0.32-4.0)
== END 2022-01-24 11:02 | disposition home or self-care (01) ==
LOC: HO.HMGCLDS 11:01
PROVIDERS: PCP Internal Medicine; Visit Provider Internal Medicine
DX: E03.9 Hypothyroidism, unspecified (principal)
CPT/HCPCS: 36415; 84439; 84443

== ENCOUNTER → 2022-04-01 13:09 | Outpatient (BNVA) | payer MEDICARE, SELFPAY | PROVIDERS: PCP Internal Medicine; Visit Provider Internal Medicine | DX: J84.10 Pulmonary fibrosis, unspecified (principal); J30.9 Allergic rhinitis, unspecified; R05.9 Cough, unspecified | CPT/HCPCS: 99212 ==

== ENCOUNTER 2022-04-30 13:27 | Outpatient (REF) | payer MEDICARE, SELFPAY ==
[2022-04-30 16:30] LABS: MANUAL DIFF FLAG NO
[2022-04-30 16:32] LABS: Basophils Percent Auto 0.4 % (0-2); Eosinophils Absolute Auto 0.3 X10*3/uL (0.0-0.4); Eosinophils Percent Auto 3.4 % (0-4); Hematocrit 44.3 % (42.0-52.0); Hemoglobin 14.7 g/dl (14.0-18.0); Imm Gran Abs Auto 0.04 X10*3/uL (0.00-0.03); Imm Gran Pct Auto 0.4 % (0.0-0.4); Lymphocytes Absolute Auto 1.6 X10*3/uL (1.2-4.9); Lymphocytes Percent Auto 15.6 % (20-40); Mean Corpuscular HGB Conc 33.2 g/dl (31.0-36.0); Mean Corpuscular Hemoglobin 30.6 pg (27.0-33.0); Mean Corpuscular Volume 92.3 fL (80.0-98.0); Mean Platelet Volume 10.5 fL (9.4-12.4); Monocytes Absolute Auto 0.8 X10*3/uL (0.1-1.2); Monocytes Percent Auto 7.9 % (2-11); Neutrophils Absolute Auto 7.2 x10*3/uL (2.0-8.3); Neutrophils Percent Auto 72.3 % (45-73); Platelet Count 215 X10*3/uL (160-400); Red Cell Distribution Width 13.6 % (11.0-16.0)
[2022-04-30 17:34] LABS: Alanine Aminotransferase 24 U/L (0-40); Albumin Level 3.9 g/dL (3.5-5.0); Alkaline Phosphatase 95 U/L (39-117); Anion Gap 15 (12-20); Aspartate Amino Transferase 30 U/L (5-37); Bilirubin Total 0.7 mg/dL (0.0-1.0); Blood Urea Nitrogen 15 mg/dL (9-16); Calcium 9.2 mg/dL (8.4-10.2); Carbon Dioxide 25 mmol/L (22-29); Chloride 102 mmol/L (96-108); Estimated Glomerular Filt Rate > 60; Glucose Random 82 mg/dL (60-115); Potassium 4.4 mmol/L (3.3-5.1); Sodium 138 mmol/L (135-145)
[2022-04-30 17:50] LABS: Free T4 (Free Thyroxine) 1.12 ng/dL (0.71-1.85); Thyroid Stimulating Hormone 3.96 uIU/mL (0.32-4.0)
== END 2022-04-30 13:28 | disposition home or self-care (01) ==
LOC: HO.HMGCLDS 13:27
PROVIDERS: PCP Internal Medicine; Visit Provider Internal Medicine
DX: E03.9 Hypothyroidism, unspecified (principal); I10 Essential (primary) hypertension
CPT/HCPCS: 36415; 80053; 84439; 84443; 85025

== ENCOUNTER 2022-05-22 13:55 | Emergency (ER) | payer MEDICARE, SELFPAY ==
--- NOTE | ~2022-05-22 | XR_ITS ---
EXAMINATION: XR KNEE, RIGHT CLINICAL INFORMATION: Pain and fall COMPARISON: None available. TECHNIQUE: Four views of the right knee. 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 No periprosthetic loosening or fracture seen. There is no abnormal joint effusion. No loose body seen. The soft tissues are normal. 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
[2022-05-22 14:17] VITALS: BP 156/86; PULSE 68; O2SAT 95
[2022-05-22 14:21] VITALS: BP 140/65; PULSE 63; RESP 18; TEMP 36.4; O2SAT 96; BMI 29.5
--- NOTE | 2022-05-22 14:22 | ED_ITS ---
HPI - General Adult General Chief complaint: Fall Stated complaint: Fall per EMS Time Seen by Provider: 05/22/22 14:01 Source: patient, family and EMS Mode of arrival: EMS Limitations: no limitations History of Present Illness HPI narrative: Patient is a 81 year old assigned male at with a history of corticobasal degeneration, pulmonary fibrosis, and HTN presenting to the emergency department today after a witnessed mechanical fall. Patient and patient's states that he was getting out of the shower earlier today and lost balance falling backward when he was using his walker. Reports right knee pain post fall. Denies strike to the head or any loss of consciousness. Denies difficulty breathing, palpitation, chest pain, dizziness, lightheadedness, or changes in vision prior to the fall. No witnessed seizure or stroke like activity. Patient denies any abdominal pain, nausea, vomiting, fever, chills, blurry vision, double vision, loss of vision, difficulty breathing, back pain, night sweats, pain with urination, increased urinary frequency, increased urinary urgency, blood in his urine or stool, syncope or a near syncopal episode, bowel incontinence, bladder incontinence, bowel retention, bladder retention, or any other complaints at this time. Onset (ago): hour(s) Location: right and lower extremity Radiation: non-radiation Severity: mild Severity scale (1-10): 2 Quality: aching Pain Consistency: now resolved Relieving factors: none Exacerbating factors: none Associated symptoms: denies other symptoms Treatments prior to arrival: none Related Data Home Medications Medication Instructions Recorded Confirmed ascorbic acid (vitamin C) 500 mg 500 mg PO DAILY 04/19/20 09/06/21 capsule atorvastatin 80 mg tablet (Lipitor) 80 mg PO BEDTIME 04/19/20 09/06/21 cetirizine 10 mg tablet (Zyrtec) 10 mg PO DAILY PRN 04/19/20 09/06/21 cholecalciferol (vitamin D3) 50 50 mcg PO DAILY 04/19/20 09/06/21 mcg (2,000 unit) capsule docusate sodium 100 mg capsule 100 mg PO BID 04/19/20 09/06/21 multivitamin (Daily Multi-Vitamin 1 tab PO DAILY 04/19/20 09/06/21 tablet) psyllium husk 0.52 gram capsule 1.04 g PO DAILY 04/19/20 09/06/21 (Daily Fiber) vitamins A,C,Z-wklu-vztxkf 2,148 1 tab PO BID 04/19/20 09/06/21 mcg-113 mg-45 mg-17.4 mg tablet (PreserVision AREDS) carvedilol 6.25 mg tablet 6.25 mg PO BID 05/11/20 09/06/21 aspirin 81 mg tablet,delayed 81 mg PO .MWF 09/06/21 09/06/21 release levothyroxine 25 mcg tablet 50 mcg PO DAILY 09/06/21 09/06/21 (Synthroid) Allergies Allergy/AdvReac Type Severity Reaction Status Date / Time meperidine [From Demerol] AdvReac Unknown Unknown Verified 04/01/22 13:28 morphine AdvReac Unknown Unknown Verified 04/01/22 13:28 pregabalin [From Lyrica CR] AdvReac Unknown Unknown Verified 04/01/22 13:28 Review of Systems Constitutional: Constitutional: Reports no additional constitutional complaints, Denies chills, Denies fever(s) and Denies night sweats Eyes: Eyes: Reports no additional eye complaints, Denies blurry vision, Denies change in vision, Denies diplopia, Denies eye discharge, Denies loss of vision and Denies eye pain ENT: Denies dizziness Cardiovascular: Cardiovascular: Reports no additional cardiovascular complaints, Denies chest pain, Denies lightheadedness, Denies Loss of Consciousness and Denies dyspnea Respiratory: Respiratory: Reports no additional respiratory complaints and Denies dyspnea Gastrointestinal: Gastrointestinal: Reports no additional gastrointestinal complaints, Denies abdominal pain, Denies melena, Denies hematochezia, Denies change in bowel habits and Denies change in stool character Genitourinary: Genitourinary: Reports no additional male genitourinary complaints, Denies hematuria, Denies oliguria, Denies difficulty urinating, Denies dysuria, Denies urinary frequency, Denies urinary hesitancy, Denies urinary incontinence and Denies urinary urgency Musculoskeletal: Musculoskeletal: Reports no additional musculoskeletal complaints, Denies numbness and Denies tingling Comments: right knee pain Neurologic: Denies dizziness, Denies loss of vision, Denies numbness and Denies tingling Psychiatric: Psychiatric: Reports no additional psychiatric complaints Endocrine: Endocrine: Reports no additional endocrine complaints Hematologic/Lymphatic: Hematologic/Lymphatic: Reports no additional hematologic/lymphatic complaints Allergic/Immunologic: Allergic/Immunologic: Reports no additional allergic/immunologic complaints [facility] Past Medical History Attestation statement: The following information was validated with the patient. (all information validated with the patient's ) Source: old records reviewed, obtained from family (patient's ) and nursing notes reviewed Medical History Allergic rhinitis Corticobasal degeneration Cough Hyperlipidemia Hypertension Hypothyroid Pneumonitis Pulmonary fibrosis Surgical History H/O aortic valve repair Hx of CABG Social History Social History Patient Tobacco Use Status: Never used Tobacco Advance Directives: Yes Advance Directives on File: Yes Advance Directives Date on File: 04/09/20 Physical Exam ED Vital Signs: Vital Signs - 24 hr 05/22/22 14:21 Temperature 97.6 F Pulse Rate 63 Respiratory Rate 18 Blood Pressure 140/65 H Pulse Oximetry 96 Oxygen Delivery Method Room Air BMI result Body Mass Index 29.5 Const General: cooperative and no acute distress Nutritional Appearance: average body habitus Orientation/consciousness: oriented to person, oriented to place, oriented to time and patient oriented x3 Limitations: physical limitations HENMT Head: Yes normal to inspection Ears: hearing grossly normal bilaterally General nose exam: Normal external nose present Face and sinus: Yes normal facial exam Mouth: Normal oral and palatal mucosa present, no drooling and no muffled voice Eyes General: appearance normal, both eyes and all related structures Periorbital: periorbital findings normal Eyelids: Yes eyelids normal Conjunctivae: conjunctivae normal Pupils: Equal, round and reactive pupils present EOM: EOMs intact bilaterally Neck Neck: Yes normal visual inspection Chest Chest palpation & inspection: normal inspection of the chest Resp Effort & Inspection: normal respiratory effort Auscultation: clear to auscultation bilaterally Cardio Rate: regular rate Rhythm: regular rhythm GI Inspection: Yes normal to inspection Neuro General: oriented to person, oriented to place, oriented to time and patient oriented x3 Cranial nerves: Yes Equal, round and reactive pupils present Cognition (Neuro): normal cognition Motor exam (neuro): 5/5 motor strength present throughout Sensory Exam: Normal double simultaneous stimulation for sensation Coordination: [id number] test normal Extrem General: Yes normal to inspection, Yes full ROM and Yes capillary refill normal Psych Appearance: grossly normal Mental Status: mental status grossly normal Affect: normal affect Attitude: cooperative Thought process: Normal thought process present Thought content: Normal thought content present Insight: Good insight present (Psych) Medical Decision Making Medical Decision Making MDM Narrative: Patient is an 81 year old assigned male at with presenting to the emergency department today with resolved right knee pain post mechanical fall. Patient's physical exam was unremarkable. Patient's right knee x-ray showed no acute process. I explained my physical exam findings as well as all test results to the patient and the patient's . I answered all questions asked by the patient and the patient's . I stressed the importance of the patient taking his medication as prescribed. I stressed the importance of the patient following up with his primary care provider. I stressed the importance of the patient returning to the emergency department immediately if his symptoms were to worsen or if he were to develop any dizziness, shortness of breath, difficulty breathing, chest pain, blurry vision, loss of vision, nausea, vomiting, abdominal pain, fever, chills, back pain, or any other complaints. Patient and the patient's verbalized agreement and understanding with this treatment plan and discharge. Differential Diagnosis Differential Diagnoses: The differential diagnosis associated with the presentation includes right knee pain Independent Interpretation I performed an independent interpretation of an: Plain X-Ray Interpretation: My interpretation is in agreement with the radiologist's impression of this imaging study. EXAMINATION: XR KNEE, RIGHT? CLINICAL INFORMATION: Pain and fall? COMPARISON: None available.? TECHNIQUE: Four views of the right knee. 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 No periprosthetic loosening or fracture seen. There is no abnormal joint effusion. No loose body seen. The soft tissues are normal.? 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 Dictated By: Ramy Wallace MD Signed By: Electronically signed by Ramy Wallace MD 05/22/22 1606 Independent Historian Clinical information obtained from an independent historian. History obtained from or confirmed by: Spouse and EMS Discharge Plan Discharge Clinical Impression: Acute knee pain Patient Disposition: Home, Self-Care Instructions: Knee Pain (ED) Additional Instructions: Follow up with your primary care provider. Return to the emergency department immediately if your symptoms worsen or if you develop any dizziness, shortness of breath, difficulty breathing, chest pain, blurry vision, loss of vision, nausea, vomiting, abdominal pain, fever, chills, back pain, or any other complaints. Prescriptions: No Action atorvastatin [Lipitor] 80 mg tablet 80 mg PO BEDTIME multivitamin [Daily Multi-Vitamin] Tablet 1 tab PO DAILY PreserVision AREDS 7,160 unit- 113 mg-100 unit tablet 1 tab PO BID Rx Instructions: administer with AM and PM meals psyllium husk [Daily Fiber] 0.52 gram capsule 1.04 g PO DAILY ascorbic acid (vitamin C) 500 mg capsule 500 mg PO DAILY cholecalciferol (vitamin D3) 50 mcg (2,000 unit) capsule 50 mcg PO DAILY docusate sodium 100 mg capsule 100 mg PO BID cetirizine [Zyrtec] 10 mg tablet 10 mg PO DAILY PRN aspirin 81 mg tablet,delayed release (DR/EC) 81 mg PO .MWF levothyroxine [Synthroid] 25 mcg tablet 50 mcg PO DAILY Rx Instructions: MWF he takes 75mcg carvedilol 6.25 mg tablet 6.25 mg PO BID Rx Instructions: must administer with a meal/food Referrals: Rosales Ramirez MD [Primary Care Provider] - Print Language: British
== END 2022-05-22 16:49 | disposition home or self-care (01) ==
PROVIDERS: Emergency Provider Emergency Medicine; PCP Internal Medicine
DX: M25.561 Pain in right knee (principal); Z79.899 Other long term (current) drug therapy
CPT/HCPCS: 73564; 99282; 99283

== ENCOUNTER 2022-07-11 22:38 | Inpatient (IN) | payer OTHER, MEDICARE, SELFPAY ==
--- NOTE | ~2022-07-11 | XR_ITS ---
EXAMINATION: XR CHEST CLINICAL INFORMATION: Shortness of breath, cough COMPARISON: 04/23/2021 TECHNIQUE: Frontal view of the chest was obtained. FINDINGS: Lung volumes are symmetric. There is a coarsened appearance of the interstitium diffusely which is similar to prior and suggestive of underlying chronic interstitial lung disease. No acute consolidation is seen. No evidence of pneumothorax or significant pleural effusion. Cardiac size appears near the upper limits of normal. Sternal wires are present. No acute osseous findings are seen. XR/XR chest 1V IMPRESSION: No acute cardiopulmonary findings. Findings suggestive of chronic interstitial lung disease.
--- NOTE | ~2022-07-11 | XR_ITS ---
EXAMINATION: XR CHEST CLINICAL INFORMATION: Cough. COMPARISON: Chest radiograph dated 07/11/[address] scan dated 04/09/2020. TECHNIQUE: 2 views of the chest were obtained. FINDINGS: Coarsened interstitial markings are seen bilaterally with similar distribution and severity. There are no pleural effusions. The heart and mediastinal structures are unchanged. The mediastinal structures are unremarkable. XR/XR chest 2V IMPRESSION: Coarse interstitial markings with similar distribution consistent with the patient's known chronic interstitial disease. A definitive new abnormality is not seen.
--- NOTE | 2022-07-11 07:26 | ECG_ITS ---
Test Reason : tachycardia/ shortness of breath Blood Pressure : / mmHG Vent. Rate : 112 BPM Atrial Rate : 112 BPM P-R Int : 200 ms QRS Dur : 142 ms QT Int : 364 ms P-R-T Axes : 000 -15 156 degrees QTc Int : 496 ms Atrial fibrillation with RVR Left bundle branch block Abnormal ECG When compared with ECG of 23-APR-2021 14:52, Atrial fibrillation Present Vent. rate has increased BY 58 BPM Referred By: Zonia Calle Electronically Signed By:Mo Hamilton
[2022-07-11 22:45] VITALS: BP 120/72; PULSE 136; RESP 16; TEMP 36.5; O2SAT 91; BMI 29.6
--- NOTE | 2022-07-11 22:45 | ECG_ITS ---
Test Reason : repeat ekg Blood Pressure : / mmHG Vent. Rate : 086 BPM Atrial Rate : 086 BPM P-R Int : 192 ms QRS Dur : 138 ms QT Int : 398 ms P-R-T Axes : 000 000 182 degrees QTc Int : 476 ms Normal sinus rhythm Left bundle branch block Abnormal ECG When compared with ECG of 11-JUL-2022 22:43, Premature supraventricular complexes are no longer Present Referred By: Generic ED Physician Electronically Signed By:Mo Hamilton
[2022-07-11 23:06] LABS: MANUAL DIFF FLAG NO
--- NOTE | 2022-07-11 23:07 | MHC.EDTECH ---
this Tech assumed care of patient upon arrival. EKG done handed into provider. PT hooked up to vehicle monitor technician and changed over. Labs done and sent to lab for processing
[2022-07-11 23:08] LABS: Basophils Percent Auto 0.2 % (0-2); Eosinophils Absolute Auto 0.3 X10*3/uL (0.0-0.4); Eosinophils Percent Auto 3.2 % (0-4); Hematocrit 41.1 % (42.0-52.0); Hemoglobin 13.8 g/dl (14.0-18.0); Imm Gran Abs Auto 0.02 X10*3/uL (0.00-0.03); Imm Gran Pct Auto 0.2 % (0.0-0.4); Lymphocytes Absolute Auto 1.8 X10*3/uL (1.2-4.9); Lymphocytes Percent Auto 18.6 % (20-40); Mean Corpuscular HGB Conc 33.6 g/dl (31.0-36.0); Mean Corpuscular Hemoglobin 30.5 pg (27.0-33.0); Mean Corpuscular Volume 90.9 fL (80.0-98.0); Mean Platelet Volume 9.6 fL (9.4-12.4); Monocytes Absolute Auto 0.6 X10*3/uL (0.1-1.2); Monocytes Percent Auto 6.6 % (2-11); Neutrophils Absolute Auto 6.8 x10*3/uL (2.0-8.3); Neutrophils Percent Auto 71.2 % (45-73); Platelet Count 188 X10*3/uL (160-400); Red Blood Count 4.52 X10*6/uL (4.60-5.80); Red Cell Distribution Width 14.1 % (11.0-16.0); White Blood Count 9.6 X10*3/uL (4.8-10.8)
[2022-07-11 23:13] LABS: INTERNATIONAL NORM RATIO 1.2 (0.9-1.1)
[2022-07-11 23:21] LABS: Anion Gap 13 (12-20); Blood Urea Nitrogen 17 mg/dL (9-16); Carbon Dioxide 24 mmol/L (22-29); Chloride 106 mmol/L (96-108); Creatinine Clr Calc Pharmacy 85.6; Estimated Glomerular Filt Rate > 60; Glucose Random 151 mg/dL (60-115); Potassium 3.8 mmol/L (3.3-5.1); Sodium 139 mmol/L (135-145)
--- NOTE | 2022-07-11 23:26 | ED_ITS ---
HPI - SOB/Dyspnea General Chief Complaint: Dyspnea Stated Complaint: tachycardia, sob Time Seen by Provider: 07/11/22 22:53 Related Data Home Medications Medication Instructions Recorded Confirmed ascorbic acid (vitamin C) 500 mg 500 mg PO DAILY 04/19/20 09/06/21 capsule atorvastatin 80 mg tablet (Lipitor) 80 mg PO BEDTIME 04/19/20 09/06/21 cetirizine 10 mg tablet (Zyrtec) 10 mg PO DAILY PRN 04/19/20 09/06/21 cholecalciferol (vitamin D3) 50 50 mcg PO DAILY 04/19/20 09/06/21 mcg (2,000 unit) capsule docusate sodium 100 mg capsule 100 mg PO BID 04/19/20 09/06/21 multivitamin (Daily Multi-Vitamin 1 tab PO DAILY 04/19/20 09/06/21 tablet) psyllium husk 0.52 gram capsule 1.04 g PO DAILY 04/19/20 09/06/21 (Daily Fiber) vitamins A,C,E-kjaq-iylffm 2,148 1 tab PO BID 04/19/20 09/06/21 mcg-113 mg-45 mg-17.4 mg tablet (PreserVision AREDS) carvedilol 6.25 mg tablet 6.25 mg PO BID 05/11/20 09/06/21 aspirin 81 mg tablet,delayed 81 mg PO .MWF 09/06/21 09/06/21 release levothyroxine 25 mcg tablet 50 mcg PO DAILY 09/06/21 09/06/21 (Synthroid) Allergies Allergy/AdvReac Type Severity Reaction Status Date / Time meperidine [From Demerol] AdvReac Unknown Unknown Verified 07/11/22 22:53 morphine AdvReac Unknown Unknown Verified 07/11/22 22:53 pregabalin [From Lyrica CR] AdvReac Unknown Unknown Verified 07/11/22 22:53 [facility] Past Medical History Medical History Allergic rhinitis Corticobasal degeneration Cough Hyperlipidemia Hypertension Hypothyroid Pneumonitis Pulmonary fibrosis Surgical History H/O aortic valve repair Hx of CABG Social History Social History Patient Tobacco Use Status: Never used Tobacco Smoked in Last 30 Days: No Use of substances other than those prescribed or required for medical reasons: No Advance Directives: Yes Advance Directives on File: Yes Advance Directives Date on File: 04/09/20 Physical Exam Vital Signs: Vital Signs: Last Vital Signs Temp 97.7 F 07/11/22 22:45 Pulse 92 07/12/22 00:30 Resp 26 H 07/12/22 00:30 BP 93/62 07/12/22 00:30 Pulse Ox 92 07/12/22 00:30 O2 Del Method Room Air 07/12/22 00:30 BMI result Body Mass Index 29.6 Medications Administered Discontinued Medications Generic Name Dose Route Start Last Admin Trade Name Maggie PRN Reason Stop Dose Admin Furosemide 20 mg 07/12/22 00:13 07/12/22 00:32 Furosemide 20 Mg/2 Ml Vial IVPUSH 07/12/22 00:14 20 mg ONCE ONE Administration Protocol Cefepime HCl 1 gm/ Sodium 50 mls @ 100 mls/hr 07/11/22 23:23 07/12/22 00:26 Chloride IV 07/11/22 23:52 Infused ONCE ONE Infusion Methylprednisolone Sodium Succinate 125 mg 07/11/22 23:23 07/11/22 23:41 Methylprednisolone Sod Succ 125 Mg/2 Ml Vial IVPUSH 07/11/22 23:24 125 mg ONCE ONE Administration Medical Decision Making Medical Decision Making [facility] Narrative: Patient presented with an episode of tachycardia, shortness of breath. My interpretation of the initial EKG showed an H approximately 120 there is a left bundle branch block which is old. Patient's chest x-ray by my interpretation showed interstitial compared to a previous chest x-ray was grossly unchanged. Patient's BNP is elevated consistent with some mild failure. A dose of Lasix was given. Lactate is normal white count is normal patient unlikely to have sepsis/pneumonia. Case discussed with the hospitalist team. To be admitted for further monitoring overnight. In stable condition. Differential Diagnosis Differential Diagnoses: The differential diagnosis associated with the presentation includes Interstitial lung disease congestive heart failure pneumonia [place] Consult Healthcare Provider Management of the patient was discussed with: Hospitalist Lab Data [facility] Lab Attestation statement: I reviewed the patient's lab results. 07/11/22 23:00 07/11/22 23:00 Labs: Lab Results 07/11/22 07/11/22 07/11/22 Range/Units 23:00 23:00 23:00 WBC 9.6 (4.8-10.8) X10*3/uL RBC 4.52 L (4.60-5.80) X10*6/uL Hgb 13.8 L (14.0-18.0) g/dl Hct 41.1 L (42.0-52.0) % MCV 90.9 (80.0-98.0) fL MCH 30.5 (27.0-33.0) pg MCHC 33.6 (31.0-36.0) g/dl RDW 14.1 (11.0-16.0) % Plt Count 188 (160-400) X10*3/uL MPV 9.6 (9.4-12.4) fL Immature Gran % (Auto) 0.2 (0.0-0.4) % Neut % (Auto) 71.2 (45-73) % Lymph % (Auto) 18.6 L (20-40) % [place] % (Auto) 6.6 (2-11) % Eos % (Auto) 3.2 (0-4) % Baso % (Auto) 0.2 (0-2) % Lymph # (Auto) 1.8 (1.2-4.9) X10*3/uL [place] # (Auto) 0.6 (0.1-1.2) X10*3/uL Eos # (Auto) 0.3 (0.0-0.4) X10*3/uL Baso # (Auto) 0.0 (0.0-0.2) X10*3/uL Abs Immat Gran (auto) 0.02 (0.00-0.03) X10*3/uL Absolute Neuts (auto) 6.8 (2.0-8.3) x10*3/uL Absolute Nucleated RBC 0.000 (0.0-0.012) X10*3/uL Nucleated RBC % (auto) 0.0 (0.0-0.2) /100WBC PT 14.0 H (10.0-13.1) SEC INR 1.2 H (0.9-1.1) Sodium 139 (135-145) mmol/L Potassium 3.8 (3.3-5.1) mmol/L Chloride 106 (96-108) mmol/L Carbon Dioxide 24 (22-29) mmol/L Anion Gap 13 (12-20) BUN 17 H (9-16) mg/dL Creatinine 0.81 (0.5-1.4) mg/dL Estim Creat Clear Calc 85.6 Estimated GFR > 60 Random Glucose 151 H (60-115) mg/dL Lactic Acid (0.5-2.0) mmol/L Calcium 9.0 (8.4-10.2) mg/dL Magnesium 2.0 (1.6-2.6) mg/dL Troponin I High Sens (<3.5-35.0) ng/L B-Natriuretic Peptide (<100) pg/mL COVID-19 ([facility]) (Negative) COVID-19 Clin Com Influenza Type A (PCR) (Negative) Influenza Type B (PCR) (Negative) RSV RNA Qual (PCR) (Negative) SARS-CoV-2 RNA (RT-PCR) (Negative) 07/11/22 07/11/22 07/11/22 Range/Units 23:00 23:00 23:00 WBC (4.8-10.8) X10*3/uL RBC (4.60-5.80) X10*6/uL Hgb (14.0-18.0) g/dl Hct (42.0-52.0) % MCV (80.0-98.0) fL MCH (27.0-33.0) pg MCHC (31.0-36.0) g/dl RDW (11.0-16.0) % Plt Count (160-400) X10*3/uL MPV (9.4-12.4) fL Immature Gran % (Auto) (0.0-0.4) % Neut % (Auto) (45-73) % Lymph % (Auto) (20-40) % [place] % (Auto) (2-11) % Eos % (Auto) (0-4) % Baso % (Auto) (0-2) % Lymph # (Auto) (1.2-4.9) X10*3/uL [place] # (Auto) (0.1-1.2) X10*3/uL Eos # (Auto) (0.0-0.4) X10*3/uL Baso # (Auto) (0.0-0.2) X10*3/uL Abs Immat Gran (auto) (0.00-0.03) X10*3/uL Absolute Neuts (auto) (2.0-8.3) x10*3/uL Absolute Nucleated RBC (0.0-0.012) X10*3/uL Nucleated RBC % (auto) (0.0-0.2) /100WBC PT (10.0-13.1) SEC INR (0.9-1.1) Sodium (135-145) mmol/L Potassium (3.3-5.1) mmol/L Chloride (96-108) mmol/L Carbon Dioxide (22-29) mmol/L Anion Gap (12-20) BUN (9-16) mg/dL Creatinine (0.5-1.4) mg/dL Estim Creat Clear Calc Estimated GFR Random Glucose (60-115) mg/dL Lactic Acid (0.5-2.0) mmol/L Calcium (8.4-10.2) mg/dL Magnesium (1.6-2.6) mg/dL Troponin I High Sens 88.9 H (<3.5-35.0) ng/L B-Natriuretic Peptide 588 H (<100) pg/mL COVID-19 ([facility]) Negative (Negative) COVID-19 Clin Com See Note Influenza Type A (PCR) (Negative) Influenza Type B (PCR) (Negative) RSV RNA Qual (PCR) (Negative) SARS-CoV-2 RNA (RT-PCR) (Negative) 07/11/22 07/11/22 Range/Units 23:42 23:42 WBC (4.8-10.8) X10*3/uL RBC (4.60-5.80) X10*6/uL Hgb (14.0-18.0) g/dl Hct (42.0-52.0) % MCV (80.0-98.0) fL MCH (27.0-33.0) pg MCHC (31.0-36.0) g/dl RDW (11.0-16.0) % Plt Count (160-400) X10*3/uL MPV (9.4-12.4) fL Immature Gran % (Auto) (0.0-0.4) % Neut % (Auto) (45-73) % Lymph % (Auto) (20-40) % [place] % (Auto) (2-11) % Eos % (Auto) (0-4) % Baso % (Auto) (0-2) % Lymph # (Auto) (1.2-4.9) X10*3/uL [place] # (Auto) (0.1-1.2) X10*3/uL Eos # (Auto) (0.0-0.4) X10*3/uL Baso # (Auto) (0.0-0.2) X10*3/uL Abs Immat Gran (auto) (0.00-0.03) X10*3/uL Absolute Neuts (auto) (2.0-8.3) x10*3/uL Absolute Nucleated RBC (0.0-0.012) X10*3/uL Nucleated RBC % (auto) (0.0-0.2) /100WBC PT (10.0-13.1) SEC INR (0.9-1.1) Sodium (135-145) mmol/L Potassium (3.3-5.1) mmol/L Chloride (96-108) mmol/L Carbon Dioxide (22-29) mmol/L Anion Gap (12-20) BUN (9-16) mg/dL Creatinine (0.5-1.4) mg/dL Estim Creat Clear Calc Estimated GFR Random Glucose (60-115) mg/dL Lactic Acid 1.7 (0.5-2.0) mmol/L Calcium (8.4-10.2) mg/dL Magnesium (1.6-2.6) mg/dL Troponin I High Sens (<3.5-35.0) ng/L B-Natriuretic Peptide (<100) pg/mL COVID-19 ([facility]) (Negative) COVID-19 Clin Com Influenza Type A (PCR) NEGATIVE (Negative) Influenza Type B (PCR) NEGATIVE (Negative) RSV RNA Qual (PCR) NEGATIVE (Negative) SARS-CoV-2 RNA (RT-PCR) NEGATIVE (Negative) Independent Interpretation I performed an independent interpretation of an: EKG Interpretation: Initial EKG showed a atrial fibrillation pattern with a left bundle branch block heart rate was 120 Repeat EKG showed a sinus pattern heart rate is 80 left bundle branch block Radiology Impression Discussion of test interpretation with radiology: I have reviewed the radiologist's reading. Independent Historian Clinical information obtained from an independent historian. History obtained from or confirmed by: Spouse External Record Review External record reviewed: Office record Discharge Plan Discharge Clinical Impression: CHF (congestive heart failure) Patient Disposition: Admitted As Inpatient Prescriptions: No Action atorvastatin [Lipitor] 80 mg tablet 80 mg PO BEDTIME multivitamin [Daily Multi-Vitamin] Tablet 1 tab PO DAILY PreserVision AREDS 7,160 unit- 113 mg-100 unit tablet 1 tab PO BID Rx Instructions: administer with AM and PM meals psyllium husk [Daily Fiber] 0.52 gram capsule 1.04 g PO DAILY ascorbic acid (vitamin C) 500 mg capsule 500 mg PO DAILY cholecalciferol (vitamin D3) 50 mcg (2,000 unit) capsule 50 mcg PO DAILY docusate sodium 100 mg capsule 100 mg PO BID cetirizine [Zyrtec] 10 mg tablet 10 mg PO DAILY PRN aspirin 81 mg tablet,delayed release (DR/EC) 81 mg PO .MWF levothyroxine [Synthroid] 25 mcg tablet 50 mcg PO DAILY Rx Instructions: MWF he takes 75mcg carvedilol 6.25 mg tablet 6.25 mg PO BID Rx Instructions: must administer with a meal/food
[2022-07-11 23:27] LABS: Troponin-I High Sensitivity 88.9 ng/L (<3.5-35.0)
[2022-07-11 23:34] LABS: COVID-19 Test Negative (Negative); IDNOW Serial# BCCEAD1C
[2022-07-11] MEDS: cefEPime HCl 1 GM in 0.9 % Sodium Chloride 50 ML IV (23:41)
[2022-07-11] MEDS: methylPREDNISolone Sod Succ 125 MG/2 ML VIAL IVPUSH (23:41)
[2022-07-11 23:59] LABS: B Type Natriuretic Peptide 588 pg/mL (<100)
[2022-07-12] VITALS (9 sets, daily range): BP systolic 93–143; BP diastolic 58–87; PULSE 60–140; RESP 14–26; TEMP 36.3–37.3; O2SAT 91–96; BMI 28.9
[2022-07-12] LABS: Lactic Acid 1.7 mmol/L (0.5-2.0)
[2022-07-12 00:28] LABS: Influenza A PCR NEGATIVE (Negative); Influenza B PCR NEGATIVE (Negative); Resp Syncy Virus RNA Qual PCR NEGATIVE (Negative); SARS COV2 PCR INHOUSE NEGATIVE (Negative)
[2022-07-12] MEDS: Furosemide 20 MG/2 ML VIAL IVPUSH (00:32)
--- NOTE | 2022-07-12 01:09 | PC.NURSE ---
[place] cath placed
--- NOTE | 2022-07-12 01:15 | PM.IMHP ---
History of Present Illness Date of Service: 07/12/22 Chief Complaint: tachycardia 81-year-old male with past medical history of cortical basal degeneration, HLD, hypertension, CAD status post double bypass, atrial valve replacement, hypothyroidism, pulmonary fibrosis does the hospital after his noticed him to be increasingly lethargic, and and a pulse ox noted to be tachycardic. According to the , patient started having a mildly productive cough the day prior, she also noticed him to be increasingly short of breath, as well as having shallow fast breathing on minimal activity, a were running errands the day of presentation when she noticed that the patient had progressively becoming more lethargic, and weak. She checked his pulse ox at home noted him to have a heart rate of 120-140, therefore called his doctor and brought him to the hospital. Patient is awake, alert, but has difficulty with speech due to his cortical basal degeneration, and his states that he has baseline mobility issues due to the disease. Patient otherwise denies any chest pain, no abdominal pain nausea vomiting, no diarrhea constipation, no urinary symptoms and no lower extremity edema. No headache or change in vision, no new numbness weakness or tingling otherwise. patient's does report that he does choke on his food and he is not on any special diet except chopped. On arrival to the ED patient was noted to have a heart rate in the 130s, found to be in AFib with RVR, Satting 91% on room air at rest Labs are significant for BNP of 588, troponin of 80.9 decreased 85.6 on repeat, Chest x-ray shows no acute cardiopulmonary findings, finding suggestive of chronic interstitial lung disease patient started on Lasix, and will be admitted for further management Review of Systems Review of Systems: Yes all other systems are reviewed and are negative [facility] Medical History Allergic rhinitis Corticobasal degeneration Cough Hyperlipidemia Hypertension Hypothyroid Pneumonitis Pulmonary fibrosis Surgical History H/O aortic valve repair Hx of CABG Social History Patient Tobacco Use Status: Never used Tobacco Smoked in Last 30 Days: No Use of substances other than those prescribed or required for medical reasons: No Advance Directives: Yes Advance Directives on File: Yes Advance Directives Date on File: 04/09/20 Meds Allergies Allergy/AdvReac Type Severity Reaction Status Date / Time meperidine [From Demerol] AdvReac Unknown Unknown Verified 07/11/22 22:53 morphine AdvReac Unknown Unknown Verified 07/11/22 22:53 pregabalin [From Lyrica CR] AdvReac Unknown Unknown Verified 07/11/22 22:53 Home Medications Medication Instructions Recorded Confirmed Last Taken Type ascorbic acid (vitamin C) 500 mg 500 mg PO DAILY 04/19/20 07/12/22 Unknown History capsule atorvastatin 80 mg tablet (Lipitor) 80 mg PO BEDTIME 04/19/20 07/12/22 Unknown History cetirizine 10 mg tablet (Zyrtec) 10 mg PO DAILY PRN Allergy Symptoms 04/19/20 07/12/22 Unknown History cholecalciferol (vitamin D3) 50 50 mcg PO DAILY 04/19/20 07/12/22 Unknown History mcg (2,000 unit) capsule docusate sodium 100 mg capsule 100 mg PO BID 04/19/20 07/12/22 Unknown History multivitamin (Daily Multi-Vitamin 1 tab PO DAILY 04/19/20 07/12/22 Unknown History tablet) vitamins A,C,U-djgt-ctwwna 2,148 1 tab PO BID 04/19/20 07/12/22 Unknown History mcg-113 mg-45 mg-17.4 mg tablet (PreserVision AREDS) carvedilol 6.25 mg tablet 6.25 mg PO BID 05/11/20 07/12/22 Unknown History aspirin 81 mg tablet,delayed 81 mg PO .MWF 09/06/21 07/12/22 Unknown History release levothyroxine 88 mcg tablet 88 mcg PO DAILY 07/12/22 07/12/22 Unknown History (Levoxyl) Physical Exam Vital Signs and Narrative: Vital Signs: Last Vital Signs Temp 97.7 F 07/11/22 22:45 Pulse 92 07/12/22 00:30 Resp 26 H 07/12/22 00:30 BP 93/62 07/12/22 00:30 Pulse Ox 92 07/12/22 00:30 O2 Del Method Room Air 07/12/22 00:30 BMI result Body Mass Index 29.6 Const: General: cooperative and no acute distress Orientation/consciousness: patient oriented x3 Eyes: General: appearance normal, both eyes and all related structures Resp: Other: crackles bilaterally Effort & Inspection: normal respiratory effort Cardio: Other: irregular rhythm, rate is now controlled Rate: regular rate Rhythm: regular rhythm GI: Palpation (GI): Soft to palpation Auscultation: normal bowel sounds Skin: General skin exam: no rashes or lesions noted Neuro: General: patient oriented x3 Cognition (Neuro): normal cognition Extrem: General: Yes normal to inspection and Yes no pedal edema Results Labs 07/11/22 23:00 07/11/22 23:00 Labs: Laboratory Results - last 24 hr 07/11/22 07/11/22 07/11/22 23:00 23:00 23:00 MCV 90.9 MCH 30.5 MCHC 33.6 RDW 14.1 Plt Count 188 MPV 9.6 Immature Gran % (Auto) 0.2 Neut % (Auto) 71.2 Lymph % (Auto) 18.6 L [place] % (Auto) 6.6 Eos % (Auto) 3.2 Baso % (Auto) 0.2 Lymph # (Auto) 1.8 [place] # (Auto) 0.6 Eos # (Auto) 0.3 Baso # (Auto) 0.0 Abs Immat Gran (auto) 0.02 Absolute Neuts (auto) 6.8 Absolute Nucleated RBC 0.000 Nucleated RBC % (auto) 0.0 PT 14.0 H INR 1.2 H Anion Gap 13 Estim Creat Clear Calc 85.6 Estimated GFR > 60 Random Glucose 151 H Lactic Acid Calcium 9.0 Magnesium 2.0 Troponin I High Sens B-Natriuretic Peptide COVID-19 ([facility]) COVID-19 Clin Com Influenza Type A (PCR) Influenza Type B (PCR) RSV RNA Qual (PCR) SARS-CoV-2 RNA (RT-PCR) 07/11/22 07/11/22 07/11/22 23:00 23:00 23:00 MCV MCH MCHC RDW Plt Count MPV Immature Gran % (Auto) Neut % (Auto) Lymph % (Auto) [place] % (Auto) Eos % (Auto) Baso % (Auto) Lymph # (Auto) [place] # (Auto) Eos # (Auto) Baso # (Auto) Abs Immat Gran (auto) Absolute Neuts (auto) Absolute Nucleated RBC Nucleated RBC % (auto) PT INR Anion Gap Estim Creat Clear Calc Estimated GFR Random Glucose Lactic Acid Calcium Magnesium Troponin I High Sens 88.9 H B-Natriuretic Peptide 588 H COVID-19 ([facility]) Negative COVID-19 Clin Com See Note Influenza Type A (PCR) Influenza Type B (PCR) RSV RNA Qual (PCR) SARS-CoV-2 RNA (RT-PCR) 07/11/22 07/11/22 23:42 23:42 MCV MCH MCHC RDW Plt Count MPV Immature Gran % (Auto) Neut % (Auto) Lymph % (Auto) [place] % (Auto) Eos % (Auto) Baso % (Auto) Lymph # (Auto) [place] # (Auto) Eos # (Auto) Baso # (Auto) Abs Immat Gran (auto) Absolute Neuts (auto) Absolute Nucleated RBC Nucleated RBC % (auto) PT INR Anion Gap Estim Creat Clear Calc Estimated GFR Random Glucose Lactic Acid 1.7 Calcium Magnesium Troponin I High Sens B-Natriuretic Peptide COVID-19 ([facility]) COVID-19 Clin Com Influenza Type A (PCR) NEGATIVE Influenza Type B (PCR) NEGATIVE RSV RNA Qual (PCR) NEGATIVE SARS-CoV-2 RNA (RT-PCR) NEGATIVE Imaging Radiologist's Impressions: Impressions Chest X-Ray 07/11/22 23:20 IMPRESSION: No acute cardiopulmonary findings. Findings suggestive of chronic interstitial lung disease. Assessment and Plan (1) Acute exacerbation of CHF (congestive heart failure): Status: Acute (2) Atrial fibrillation with RVR: Status: Acute Plan this is an 81-year-old male with past medical history of cortical basal degeneration, hypertension, CAD status post CABG, AVR, presents the hospital with shortness of breath tachycardia found to have AFib with RVR CHF exacerbation # acute CHF exacerbation - no history, - Has elevated BNP, increased dyspnea, - restart him on Lasix IV, strict I&O, daily weight, low-sodium diet - will obtain echocardiogram, cardiology consulted # AFib with RVR - new onset - elevated chest Vasc score of 4 - discuss need for anticoagulation with patient and his at bedside, agreeable, at this time will start on Lovenox - Continue carvedilol for rate control # hypertension - stable - continue carvedilol # history of CAD - no chest pain - continue aspirin, carvedilol, statin # hypothyroidism - continue levothyroxine DVT prophylaxis: Lovenox given patient's need for evaluation of CHF exacerbation, IV Lasix, and management of AFib with RVR patient required minimum 2 night inpatient hospital stay for further management and monitoring Time Spent With Patient Time: Total time managing care of this patient today ____ minutes. Quality Stroke Does the patient have a stroke diagnosis?: No VTE Prior VTE?: No VTE Risk Level:: Medical - moderate - high VTE Device Contraindication: Treatment Not Indicated VTE Drug Contraindication: N/A - Med Ordered
[2022-07-12 01:19] LABS: Appearance Urine Clear; Color Urine Yellow; Glucose Urine UA Negative (Negative); Leukocyte Esterase Urine Negative (Negative); Nitrite Urine Negative (Negative); PH 5.5 (5.0-9.0); Specific Gravity - Urine 1.015 (1.005-1.025); Urine Blood Negative (Negative); Urine Ketones Trace mg/dL (Negative); Urine Protein Negative (Neg-Trace)
[2022-07-12] MEDS: Enoxaparin Sodium 100 MG/ML SYRINGE SUBCUT ×2 (01:26→14:54)
--- NOTE | 2022-07-12 01:28 | PC.NURSE ---
Med req completed
[2022-07-12 01:41] LABS: Bacteria Urine None Seen (None Seen); Calcium Oxalate Crystals Urine Present; Hyaline Casts Urine 0-2 /LPF (0-2); RBC Urine 0-2 /HPF (0-2); Squamous Epithelial Cell Urine 0-2 /HPF (0-2); WBC Urine 0-5 /HPF (0-5)
[2022-07-12 01:53] LABS: Hematocrit 42.4 % (42.0-52.0); Hemoglobin 14.3 g/dl (14.0-18.0); Mean Corpuscular HGB Conc 33.7 g/dl (31.0-36.0); Mean Corpuscular Hemoglobin 30.2 pg (27.0-33.0); Mean Corpuscular Volume 89.6 fL (80.0-98.0); Mean Platelet Volume 9.5 fL (9.4-12.4); Platelet Count 206 X10*3/uL (160-400); Red Blood Count 4.73 X10*6/uL (4.60-5.80); Red Cell Distribution Width 14.1 % (11.0-16.0)
[2022-07-12 01:58] LABS: INTERNATIONAL NORM RATIO 1.2 (0.9-1.1); Prothrombin Time 13.4 SEC (10.0-13.1)
[2022-07-12 02:01] LABS: Partial Thromboplastin Time 37.8 SEC (26.0-36.4)
--- NOTE | 2022-07-12 02:05 | PC.NURSE ---
[place] cath 30 fell off pt cleaned and dry repositioned, linens changed replaced with [place] cath 25
[2022-07-12 04:19] LABS: Troponin-I High Sensitivity 85.6 ng/L (<3.5-35.0)
--- NOTE | 2022-07-12 05:06 | PC.NURSE ---
pt sleeping respirations even and unlabored
[2022-07-12 06:51] LABS: Alanine Aminotransferase 19 U/L (0-40); Albumin Level 3.6 g/dL (3.5-5.0); Alkaline Phosphatase 90 U/L (39-117); Anion Gap 13 (12-20); Aspartate Amino Transferase 25 U/L (5-37); Bilirubin Total 0.8 mg/dL (0.0-1.0); Blood Urea Nitrogen 16 mg/dL (9-16); Calcium 8.8 mg/dL (8.4-10.2); Carbon Dioxide 21 mmol/L (22-29); Chloride 108 mmol/L (96-108); Creatinine Clr Calc Pharmacy 97.7; Estimated Glomerular Filt Rate > 60; Glucose Random 162 mg/dL (60-115); Potassium 3.9 mmol/L (3.3-5.1); Sodium 138 mmol/L (135-145); Total Protein 6.6 g/dL (6.5-8.0)
--- NOTE | 2022-07-12 07:00 | CA_ITS ---
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 There is mildly increased left ventricular wall thickness. The visually estimated ejection fraction is between 60-65%. - Normal right ventricular cavity size. There is mildly decreased right ventricular systolic function. - There is severe mitral annular calcification. - The right ventricular systolic pressure is 38 mmHg. Moderately elevated right atrial pressure. Mild pulmonary hypertension is present. - There is mild dilatation of the ascending aorta measuring 3.80 cm. Findings Procedure Information Contrast agent, definity, is being given per protocol without apparent complications. Left Ventricle Normal left ventricular size and systolic function. There is mildly increased left ventricular wall thickness. The visually estimated ejection fraction is between 60-65%. There is no evidence of regional wall motion abnormalities. Diastolic function is indeterminate on the basis of available data. Right Ventricle Normal right ventricular cavity size. There is mildly decreased right ventricular systolic function. Atria The left atrium is normal in size. Aortic Valve There is mild calcification of the aortic valve. There is no aortic valve stenosis. There is no aortic valve regurgitation. Mitral Valve There is severe mitral annular calcification. There is trace mitral valve regurgitation. There is no mitral valve stenosis. Pulmonic Valve The pulmonic valve is likely normal. Tricuspid Valve Normal tricuspid valve structure and function. There is mild tricuspid valve regurgitation. The right ventricular systolic pressure is 38 mmHg. Moderately elevated right atrial pressure. Mild pulmonary hypertension is present. Great Vessels There is mild dilatation of the ascending aorta measuring 3.80 cm. The visualized portions of the pulmonary artery and branches are normal. Venous The inferior vena cava is dilated and collapses less than 50% with inspiration. Pericardium/Pleural There is no evidence of pericardial effusion. Measurements 2D Linear Measurements IVSd: 1.21 0.6-0.9/0.6-1.0 cm LVIDd: 3.69 3.9-5.3/4.2-5.9 cm LVIDd Index: 1.67 2.4-3.2/2.2-3.1 cm/m2 LVIDs: 2.80 2.0-3.6 cm LVPWd: 1.17 0.7-1.1 cm LA Diam: 5.30 2.7-3.8/3.0-4.0 cm LAIDs Index: 2.40 1.5-2.3 cm/m2 LV Mass: 180.34 67-162/88-224 g LV Mass Index: 81.60 43-95/49-115 g/m2 LVOT Diam: 1.70 3.0+(-)1.3 cm 2D Systolic Function EF 4C: 61.80 >55% EF 2C: 75.50 >55% EF BiP: 68.90 >55% Mitral Valve MV Pk E: 1.07 MV Decel Time: 102.00 E'Lateral: 8.36 E'Medial: 4.51 E/E' Med: 23.70 E/E' Lat: 12.80 PHT: 30.00 MVA PHT: 7.33 Decel [place]: 10.49 Aortic Valve AoV Pk Yang: 2.30 AoV Mn Yang: 1.58 AoV VTI: 0.34 AoV Pk Grad: 21.00 Aov Mn Grad: 12.00 MAUREEN Cont.VTI: 0.66 LVOT LVOT Pk Yang: 0.65 LVOT Mn Yang: 0.48 LVOT VTI: 0.10 LVOT Pk Grad: 2.00 LVOT Mn Grad: 1.00 LVOT Diam: 1.70 LVOT Area: 2.27 Diastolic Function MV Pk E: 1.07 E'Medial: 4.51 E/E' Med: 23.70 E' Laterial: 8.36 E/E' Lat: 12.80 Right Ventricle TAPSE (mm): 11.70 TVS' Yang: 8.55 Tricuspid Valve TR Pk Yang: 2.42 TR Pk Grad: 23.00 RA Press: 15.00 RVSP: 38.00 Great Vessels Aorta Sinus of Valsalva: 3.60 2.0-3.5 cm Ao Asc: 3.80 2.1-3.4 cm Pulmonary Valve PV Pk Yang: 1.11 Peak PV Grad: 5.00 Updated in Other Vendor System with Status of Final Mo Hamilton MD electronically signed on 07/12/2022 8:59:53 PM with status of Final
--- NOTE | 2022-07-12 07:04 | PHA.MEDREC ---
Pharmacy Consult ? Medication Reconciliation Pharmacy has completed the medication reconciliation. Med rec completed by rn, reveiwed by pharmacy Garry
--- NOTE | 2022-07-12 07:36 | PC.NURSE ---
pts HR 120-160s - tiger connect sent to dr. freeman. pt reports asymptomatic. no new orders at this time
[2022-07-12] MEDS: Furosemide 40 MG/4 ML VIAL IVPUSH (09:25)
[2022-07-12] MEDS: dilTIAZem HCL 125 MG in 0.9 % Sodium Chloride 100 ML 10 MG IVCONT (09:33)
[2022-07-12] MEDS: Cholecalciferol (Vitamin D3) 25 MCG TABLET 50 MCG PO (10:21)
[2022-07-12] MEDS: Ascorbic Acid 500 MG TABLET PO (10:21)
[2022-07-12] MEDS: Multivitamin TABLET 1 TAB PO (10:21)
[2022-07-12] MEDS: Levothyroxine Sodium 88 MCG TABLET PO (10:22)
[2022-07-12] MEDS: Docusate Sodium 100 MG CAPSULE PO ×2 (10:22→21:21)
[2022-07-12] MEDS: 0.9 % Sodium Chloride Flush 3 ML SYRINGE IVFLUSH ×3 (10:22→21:22)
--- NOTE | 2022-07-12 10:51 | PC.NURSE ---
pt started on cardizem gtt at 0933 due to rapid afib. The drip was started at 10mg/hr. Drip now titrated to 15mg/hr as there has been no change in Pts HR. MD aware. will continue to monitor pts HR and titrate drip as needed per protocol.
--- NOTE | 2022-07-12 12:39 | MHC.CM.PN ---
Addendum entered by Frances Peace 07/12/22 12:42: HCP on file and verified. Original Note: This typewriter assembly and parts inspector met with patient and patient's for CM assessment. Pt is slow to respond but A&O x3. Patient lives at home w/ his -she is his primary hospice care transitions coordinator and a retired RN. Pt uses a walker in the home and wheelchair for long distances/appts. PCP is Dr. Ramirez. He is a [place] and connected with some services. They have ordered a hospital bed and a ramp for the home. D/C plan is to return home. to transport. IMM completed.
--- NOTE | 2022-07-12 12:49 | PM.CNCAR ---
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 He is presenting for shortness of breath and AFib with RVR. As per the he was not feeling well and progressively became more short of breath and lethargic. She checked the heart rate and was in 130s. The call the primary care physician and was advised to go to the emergency department. In the ER he was noticed to be in AFib with RVR. He was started on Cardizem drip and is currently on Cardizem 5 milligram/hour with heart rate in 90s. He is saying he is feeling better. He has crackles on examination it appears he received some Lasix. He had mildly elevated BNP level too. Is denying palpitations currently. She is denying any significant shortness of breath or chest discomfort right now. As mentioned he is on Cardizem drip. No significant peripheral edema. [facility] Past Medical History Medical History Allergic rhinitis Corticobasal degeneration Cough Hyperlipidemia Hypertension Hypothyroid Pneumonitis Pulmonary fibrosis Surgical History Surgical History H/O aortic valve repair Hx of CABG Social History Social History Household Members: Spouse Patient Tobacco Use Status: Never used Tobacco e-Cigarette/Vaping Use: Never Used Advance Directives Date on File: 04/09/20 service: Yes Current occupational status: retired Meds Allergies Allergy/AdvReac Type Severity Reaction Status Date / Time meperidine [From Demerol] AdvReac Unknown Unknown Verified 07/11/22 22:53 morphine AdvReac Unknown Unknown Verified 07/11/22 22:53 pregabalin [From Lyrica CR] AdvReac Unknown Unknown Verified 07/11/22 22:53 Active Medications: Current Medications Acetaminophen (Acetaminophen 325 Mg Tablet) 650 mg PO Q6H PRN PRN Reason: Pain, Mild (Pain Scale 1-3) Ascorbic Acid (Ascorbic Acid 500 Mg Tablet) 500 mg PO DAILY [facility] Last Admin: 07/12/22 10:21 Dose: 500 mg Aspirin (Aspirin Enteric Coated 81 Mg Tablet.Dr) 81 mg PO .[facility] Atorvastatin Calcium (Atorvastatin Calcium 80 Mg Tablet) 80 mg PO BEDTIME [facility] Docusate Sodium (Docusate Sodium 100 Mg Capsule) 100 mg PO DAILY PRN PRN Reason: Constipation Docusate Sodium (Docusate Sodium 100 Mg Capsule) 100 mg PO BID [facility] Last Admin: 07/12/22 10:22 Dose: 100 mg Furosemide (Furosemide 40 Mg/4 Ml Vial) 40 mg IVPUSH DAILY [facility]; Protocol Last Admin: 07/12/22 09:25 Dose: 40 mg Diltiazem HCl 125 mg/ Sodium (Chloride) 125 mls @ 0 mls/hr IVCONT .Q0M [facility]; Protocol Last Titration: 07/12/22 10:54 Dose: 15 mg/hr, 15 mls/hr Levothyroxine Sodium (Levothyroxine Sodium 88 Mcg Tablet) 88 mcg PO DAILY [facility] Last Admin: 07/12/22 10:22 Dose: 88 mcg Loratadine (Loratadine 10 Mg Tablet) 10 mg PO DAILY PRN PRN Reason: Allergy Symptoms Multivitamins/Vitamin C (Multivitamin Tablet) 1 tab PO DAILY [facility] Last Admin: 07/12/22 10:21 Dose: 1 tab Ondansetron HCl (Ondansetron Hcl 4 Mg/2 Ml Vial) 4 mg IVPUSH Q8H PRN PRN Reason: Nausea and Vomiting Sodium Chloride (0.9 % Sodium Chloride Flush 3 Ml Syringe) 3 ml IVFLUSH QSHIFT [facility] Last Admin: 07/12/22 10:22 Dose: 3 ml Vitamin D (Cholecalciferol (Vitamin D3) 25 Mcg Tablet) 50 mcg PO DAILY [facility] Last Admin: 07/12/22 10:21 Dose: 50 mcg Home Medications Medication Instructions Recorded Confirmed Last Taken Type ascorbic acid (vitamin C) 500 mg 500 mg PO DAILY 04/19/20 07/12/22 Unknown History capsule atorvastatin 80 mg tablet (Lipitor) 80 mg PO BEDTIME 04/19/20 07/12/22 Unknown History cetirizine 10 mg tablet (Zyrtec) 10 mg PO DAILY PRN Allergy Symptoms 04/19/20 07/12/22 Unknown History cholecalciferol (vitamin D3) 50 50 mcg PO DAILY 04/19/20 07/12/22 Unknown History mcg (2,000 unit) capsule docusate sodium 100 mg capsule 100 mg PO BID 04/19/20 07/12/22 Unknown History multivitamin (Daily Multi-Vitamin 1 tab PO DAILY 04/19/20 07/12/22 Unknown History tablet) vitamins A,C,V-wwzi-genvvm 2,148 1 tab PO BID 04/19/20 07/12/22 Unknown History mcg-113 mg-45 mg-17.4 mg tablet (PreserVision AREDS) carvedilol 6.25 mg tablet 6.25 mg PO BID 05/11/20 07/12/22 Unknown History aspirin 81 mg tablet,delayed 81 mg PO .MWF 09/06/21 07/12/22 Unknown History release levothyroxine 88 mcg tablet 88 mcg PO DAILY 07/12/22 07/12/22 Unknown History (Levoxyl) Physical Exam Vital Signs: Vital Signs: Last Vital Signs Temp 98.6 F 07/12/22 11:43 Pulse 91 07/12/22 11:43 Resp 20 07/12/22 11:43 BP 117/67 07/12/22 11:43 Pulse Ox 95 07/12/22 11:43 O2 Del Method Nasal Cannula 07/12/22 11:43 O2 Flow Rate 2 07/12/22 11:43 BMI result Body Mass Index 29.6 GENERAL APPEARANCE: in no acute distress, pleasant. NECK: no carotid bruit, no jugular venous distention. SKIN: no suspicious lesions, warm and dry. HEART: no murmurs, irregular rate and rhythm. LUNGS: Fine crackles both bases. ABDOMEN: soft, nontender. EXTREMITIES: no edema. PERIPHERAL PULSES: equal. Objective Labs and Meds 07/12/22 01:45 07/12/22 06:19 Lab results: Laboratory Results - last 24 hr 07/11/22 07/11/22 07/11/22 23:00 23:00 23:00 WBC 9.6 RBC 4.52 L Hgb 13.8 L Hct 41.1 L MCV 90.9 MCH 30.5 MCHC 33.6 RDW 14.1 Plt Count 188 MPV 9.6 Immature Gran % (Auto) 0.2 Neut % (Auto) 71.2 Lymph % (Auto) 18.6 L [place] % (Auto) 6.6 Eos % (Auto) 3.2 Baso % (Auto) 0.2 Lymph # (Auto) 1.8 [place] # (Auto) 0.6 Eos # (Auto) 0.3 Baso # (Auto) 0.0 Abs Immat Gran (auto) 0.02 Absolute Neuts (auto) 6.8 Absolute Nucleated RBC 0.000 Nucleated RBC % (auto) 0.0 PT 14.0 H INR 1.2 H APTT Sodium 139 Potassium 3.8 Chloride 106 Carbon Dioxide 24 Anion Gap 13 BUN 17 H Creatinine 0.81 Estim Creat Clear Calc 85.6 Estimated GFR > 60 Random Glucose 151 H Lactic Acid Calcium 9.0 Magnesium 2.0 Total Bilirubin AST ALT Alkaline Phosphatase Troponin I High Sens B-Natriuretic Peptide Total Protein Albumin Urine Color Urine Appearance Urine pH Ur Specific [place] Urine Protein Urine Glucose (UA) Urine Ketones Urine Blood Urine Nitrite Ur Leukocyte Esterase Urine RBC Urine WBC Ur Squamous Epith Cells Calcium Oxalate Crystal Urine Bacteria Hyaline Casts COVID-19 ([facility]) COVID-19 Clin Com Influenza Type A (PCR) Influenza Type B (PCR) RSV RNA Qual (PCR) SARS-CoV-2 RNA (RT-PCR) 07/11/22 07/11/22 07/11/22 23:00 23:00 23:00 WBC RBC Hgb Hct MCV MCH MCHC RDW Plt Count MPV Immature Gran % (Auto) Neut % (Auto) Lymph % (Auto) [place] % (Auto) Eos % (Auto) Baso % (Auto) Lymph # (Auto) [place] # (Auto) Eos # (Auto) Baso # (Auto) Abs Immat Gran (auto) Absolute Neuts (auto) Absolute Nucleated RBC Nucleated RBC % (auto) PT INR APTT Sodium Potassium Chloride Carbon Dioxide Anion Gap BUN Creatinine Estim Creat Clear Calc Estimated GFR Random Glucose Lactic Acid Calcium Magnesium Total Bilirubin AST ALT Alkaline Phosphatase Troponin I High Sens 88.9 H B-Natriuretic Peptide 588 H Total Protein Albumin Urine Color Urine Appearance Urine pH Ur Specific [place] Urine Protein Urine Glucose (UA) Urine Ketones Urine Blood Urine Nitrite Ur Leukocyte Esterase Urine RBC Urine WBC Ur Squamous Epith Cells Calcium Oxalate Crystal Urine Bacteria Hyaline Casts COVID-19 ([facility]) Negative COVID-19 Clin Com See Note Influenza Type A (PCR) Influenza Type B (PCR) RSV RNA Qual (PCR) SARS-CoV-2 RNA (RT-PCR) 07/11/22 07/11/22 07/12/22 23:42 23:42 01:10 WBC RBC Hgb Hct MCV MCH MCHC RDW Plt Count MPV Immature Gran % (Auto) Neut % (Auto) Lymph % (Auto) [place] % (Auto) Eos % (Auto) Baso % (Auto) Lymph # (Auto) [place] # (Auto) Eos # (Auto) Baso # (Auto) Abs Immat Gran (auto) Absolute Neuts (auto) Absolute Nucleated RBC Nucleated RBC % (auto) PT INR APTT Sodium Potassium Chloride Carbon Dioxide Anion Gap BUN Creatinine Estim Creat Clear Calc Estimated GFR Random Glucose Lactic Acid 1.7 Calcium Magnesium Total Bilirubin AST ALT Alkaline Phosphatase Troponin I High Sens B-Natriuretic Peptide Total Protein Albumin Urine Color Yellow Urine Appearance Clear Urine pH 5.5 Ur Specific [place] 1.015 Urine Protein Negative Urine Glucose (UA) Negative Urine Ketones Trace Urine Blood Negative Urine Nitrite Negative Ur Leukocyte Esterase Negative Urine RBC 0-2 Urine WBC 0-5 Ur Squamous Epith Cells 0-2 Calcium Oxalate Crystal Present Urine Bacteria None Seen Hyaline Casts 0-2 COVID-19 ([facility]) COVID-19 Clin Com Influenza Type A (PCR) NEGATIVE Influenza Type B (PCR) NEGATIVE RSV RNA Qual (PCR) NEGATIVE SARS-CoV-2 RNA (RT-PCR) NEGATIVE 07/12/22 07/12/22 07/12/22 01:45 01:45 03:47 WBC 9.0 RBC 4.73 Hgb 14.3 Hct 42.4 MCV 89.6 MCH 30.2 MCHC 33.7 RDW 14.1 Plt Count 206 MPV 9.5 Immature Gran % (Auto) Neut % (Auto) Lymph % (Auto) [place] % (Auto) Eos % (Auto) Baso % (Auto) Lymph # (Auto) [place] # (Auto) Eos # (Auto) Baso # (Auto) Abs Immat Gran (auto) Absolute Neuts (auto) Absolute Nucleated RBC 0.000 Nucleated RBC % (auto) 0.0 PT 13.4 H INR 1.2 H APTT 37.8 H Sodium Potassium Chloride Carbon Dioxide Anion Gap BUN Creatinine Estim Creat Clear Calc Estimated GFR Random Glucose Lactic Acid Calcium Magnesium Total Bilirubin AST ALT Alkaline Phosphatase Troponin I High Sens 85.6 H B-Natriuretic Peptide Total Protein Albumin Urine Color Urine Appearance Urine pH Ur Specific [place] Urine Protein Urine Glucose (UA) Urine Ketones Urine Blood Urine Nitrite Ur Leukocyte Esterase Urine RBC Urine WBC Ur Squamous Epith Cells Calcium Oxalate Crystal Urine Bacteria Hyaline Casts COVID-19 ([facility]) COVID-19 Clin Com Influenza Type A (PCR) Influenza Type B (PCR) RSV RNA Qual (PCR) SARS-CoV-2 RNA (RT-PCR) 07/12/22 06:19 WBC RBC Hgb Hct MCV MCH MCHC RDW Plt Count MPV Immature Gran % (Auto) Neut % (Auto) Lymph % (Auto) [place] % (Auto) Eos % (Auto) Baso % (Auto) Lymph # (Auto) [place] # (Auto) Eos # (Auto) Baso # (Auto) Abs Immat Gran (auto) Absolute Neuts (auto) Absolute Nucleated RBC Nucleated RBC % (auto) PT INR APTT Sodium 138 Potassium 3.9 Chloride 108 Carbon Dioxide 21 L Anion Gap 13 BUN 16 Creatinine 0.71 Estim Creat Clear Calc 97.7 Estimated GFR > 60 Random Glucose 162 H Lactic Acid Calcium 8.8 Magnesium Total Bilirubin 0.8 AST 25 ALT 19 Alkaline Phosphatase 90 Troponin I High Sens B-Natriuretic Peptide Total Protein 6.6 Albumin 3.6 Urine Color Urine Appearance Urine pH Ur Specific [place] Urine Protein Urine Glucose (UA) Urine Ketones Urine Blood Urine Nitrite Ur Leukocyte Esterase Urine RBC Urine WBC Ur Squamous Epith Cells Calcium Oxalate Crystal Urine Bacteria Hyaline Casts COVID-19 ([facility]) COVID-19 Clin Com Influenza Type A (PCR) Influenza Type B (PCR) RSV RNA Qual (PCR) SARS-CoV-2 RNA (RT-PCR) Imaging Radiologist's impression: Impressions Chest X-Ray 07/11/22 23:20 IMPRESSION: No acute cardiopulmonary findings. Findings suggestive of chronic interstitial lung disease. Assessment and Plan (1) Atrial fibrillation with RVR: Status: Acute Plan [age] year gentleman with background of pulmonary fibrosis and cortical basilar degeneration who is presenting with shortness of breath and AFib with RVR. There is some concern that he aspirated. He has known history of aspiration the past. Clinically does not appear volume overloaded and I think he does not need regular diuretics. We can monitor him closely and dose diuretics if required. In terms of Cardizem use, I have briefly reviewed the echocardiogram and the right ventricular function does not appear normal. I would avoid the Cardizem currently. I would use metoprolol tartrate 50 mg b.i.d. for now. Also a digoxin load can be given to 250 mcg every 6 hours x 3. He has stroke risk and should be anticoagulated. He has not had any recent bleeding. He previously had epistaxis which was treated by ENT and he has not had any further bleeding since then. Aspirin should be discontinued in case apixaban is added. Thank you for allowing me to participate in the care of your patient. Please feel free to contact me if you have any questions. Time Spent With Patient Time: Total time managing care of this patient today ____ minutes. Procedures Date of Service Date of Service: 07/12/22
--- NOTE | 2022-07-12 15:32 | P.PNIM_ITS ---
Subjective Subjective Date of Service: 07/12/22 Interval History: tachycardia Review of Systems sob and tachycardia seems to be improving has mild cough mostly dry Physical Exam Vital Signs: Vital Signs: Last Vital Signs Temp 97.4 F 07/12/22 15:22 Pulse 96 07/12/22 15:22 Resp 14 07/12/22 15:22 BP 121/76 07/12/22 15:22 Pulse Ox 95 07/12/22 15:22 O2 Del Method Nasal Cannula 07/12/22 15:22 O2 Flow Rate 2 07/12/22 15:22 BMI result Body Mass Index 28.9 Appearance: Alert.? Oriented X3.? seems comfortable , not in acute distress. cvs: rrr, [id number] . res: clear to auscultation ,no rhonchii or wheezing abd: no rebound or guarding ,nt, bs present. ext pulses present , no cyanosis . neuro: axo3 , nonfocal. Objective Data Active Medications Acetaminophen (Acetaminophen 325 Mg Tablet) 650 mg PO Q6H PRN PRN Reason: Pain, Mild (Pain Scale 1-3) Ascorbic Acid (Ascorbic Acid 500 Mg Tablet) 500 mg PO DAILY [facility] Last Admin: 07/12/22 10:21 Dose: 500 mg Documented By: LUKE Aspirin (Aspirin Enteric Coated 81 Mg Tablet.) 81 mg PO .[facility] Atorvastatin Calcium (Atorvastatin Calcium 80 Mg Tablet) 80 mg PO BEDTIME [facility] Docusate Sodium (Docusate Sodium 100 Mg Capsule) 100 mg PO DAILY PRN PRN Reason: Constipation Docusate Sodium (Docusate Sodium 100 Mg Capsule) 100 mg PO BID [facility] Last Admin: 07/12/22 10:22 Dose: 100 mg Documented By: LUKE Enoxaparin Sodium (Enoxaparin Sodium 100 Mg/Ml Syringe) 100 mg SUBCUT Q12H [facility] Last Admin: 07/12/22 14:54 Dose: 100 mg Documented By: LUKE Diltiazem HCl 125 mg/ Sodium (Chloride) 125 mls @ 0 mls/hr IVCONT .Q0M [facility]; Protocol Last Titration: 07/12/22 14:16 Dose: 5 mg/hr, 5 mls/hr Documented By: LUKE Levothyroxine Sodium (Levothyroxine Sodium 88 Mcg Tablet) 88 mcg PO DAILY [facility] Last Admin: 07/12/22 10:22 Dose: 88 mcg Documented By: LU[facility] Loratadine (Loratadine 10 Mg Tablet) 10 mg PO DAILY PRN PRN Reason: Allergy Symptoms Multivitamins/Vitamin C (Multivitamin Tablet) 1 tab PO DAILY [facility] Last Admin: 07/12/22 10:21 Dose: 1 tab Documented By: LU[facility] Ondansetron HCl (Ondansetron Hcl 4 Mg/2 Ml Vial) 4 mg IVPUSH Q8H PRN PRN Reason: Nausea and Vomiting Sodium Chloride (0.9 % Sodium Chloride Flush 3 Ml Syringe) 3 ml IVFLUSH QSHIFT [facility] Last Admin: 07/12/22 10:22 Dose: 3 ml Documented By: LUKE Vitamin D (Cholecalciferol (Vitamin D3) 25 Mcg Tablet) 50 mcg PO DAILY [facility] Last Admin: 07/12/22 10:21 Dose: 50 mcg Documented By: LUKE Labs 07/12/22 01:45 07/12/22 06:19 Labs: Laboratory Results - last 24 hr 07/11/22 07/11/22 07/11/22 23:00 23:00 23:00 MCV 90.9 MCH 30.5 MCHC 33.6 RDW 14.1 Plt Count 188 MPV 9.6 Immature Gran % (Auto) 0.2 Neut % (Auto) 71.2 Lymph % (Auto) 18.6 L [place] % (Auto) 6.6 Eos % (Auto) 3.2 Baso % (Auto) 0.2 Lymph # (Auto) 1.8 [place] # (Auto) 0.6 Eos # (Auto) 0.3 Baso # (Auto) 0.0 Abs Immat Gran (auto) 0.02 Absolute Neuts (auto) 6.8 Absolute Nucleated RBC 0.000 Nucleated RBC % (auto) 0.0 PT 14.0 H INR 1.2 H APTT Anion Gap 13 Estim Creat Clear Calc 85.6 Estimated GFR > 60 Random Glucose 151 H Lactic Acid Calcium 9.0 Magnesium 2.0 Total Bilirubin AST ALT Alkaline Phosphatase Troponin I High Sens B-Natriuretic Peptide Total Protein Albumin Urine Color Urine Appearance Urine pH Ur Specific [place] Urine Protein Urine Glucose (UA) Urine Ketones Urine Blood Urine Nitrite Ur Leukocyte Esterase Urine RBC Urine WBC Ur Squamous Epith Cells Calcium Oxalate Crystal Urine Bacteria Hyaline Casts COVID-19 ([facility]) COVID-19 Clin Com Influenza Type A (PCR) Influenza Type B (PCR) RSV RNA Qual (PCR) SARS-CoV-2 RNA (RT-PCR) 07/11/22 07/11/22 07/11/22 23:00 23:00 23:00 MCV MCH MCHC RDW Plt Count MPV Immature Gran % (Auto) Neut % (Auto) Lymph % (Auto) [place] % (Auto) Eos % (Auto) Baso % (Auto) Lymph # (Auto) [place] # (Auto) Eos # (Auto) Baso # (Auto) Abs Immat Gran (auto) Absolute Neuts (auto) Absolute Nucleated RBC Nucleated RBC % (auto) PT INR APTT Anion Gap Estim Creat Clear Calc Estimated GFR Random Glucose Lactic Acid Calcium Magnesium Total Bilirubin AST ALT Alkaline Phosphatase Troponin I High Sens 88.9 H B-Natriuretic Peptide 588 H Total Protein Albumin Urine Color Urine Appearance Urine pH Ur Specific [place] Urine Protein Urine Glucose (UA) Urine Ketones Urine Blood Urine Nitrite Ur Leukocyte Esterase Urine RBC Urine WBC Ur Squamous Epith Cells Calcium Oxalate Crystal Urine Bacteria Hyaline Casts COVID-19 ([facility]) Negative COVID-19 Clin Com See Note Influenza Type A (PCR) Influenza Type B (PCR) RSV RNA Qual (PCR) SARS-CoV-2 RNA (RT-PCR) 07/11/22 07/11/22 07/12/22 23:42 23:42 01:10 MCV MCH MCHC RDW Plt Count MPV Immature Gran % (Auto) Neut % (Auto) Lymph % (Auto) [place] % (Auto) Eos % (Auto) Baso % (Auto) Lymph # (Auto) [place] # (Auto) Eos # (Auto) Baso # (Auto) Abs Immat Gran (auto) Absolute Neuts (auto) Absolute Nucleated RBC Nucleated RBC % (auto) PT INR APTT Anion Gap Estim Creat Clear Calc Estimated GFR Random Glucose Lactic Acid 1.7 Calcium Magnesium Total Bilirubin AST ALT Alkaline Phosphatase Troponin I High Sens B-Natriuretic Peptide Total Protein Albumin Urine Color Yellow Urine Appearance Clear Urine pH 5.5 Ur Specific [place] 1.015 Urine Protein Negative Urine Glucose (UA) Negative Urine Ketones Trace Urine Blood Negative Urine Nitrite Negative Ur Leukocyte Esterase Negative Urine RBC 0-2 Urine WBC 0-5 Ur Squamous Epith Cells 0-2 Calcium Oxalate Crystal Present Urine Bacteria None Seen Hyaline Casts 0-2 COVID-19 ([facility]) COVID-19 Clin Com Influenza Type A (PCR) NEGATIVE Influenza Type B (PCR) NEGATIVE RSV RNA Qual (PCR) NEGATIVE SARS-CoV-2 RNA (RT-PCR) NEGATIVE 07/12/22 07/12/22 07/12/22 01:45 01:45 03:47 MCV 89.6 MCH 30.2 MCHC 33.7 RDW 14.1 Plt Count 206 MPV 9.5 Immature Gran % (Auto) Neut % (Auto) Lymph % (Auto) [place] % (Auto) Eos % (Auto) Baso % (Auto) Lymph # (Auto) [place] # (Auto) Eos # (Auto) Baso # (Auto) Abs Immat Gran (auto) Absolute Neuts (auto) Absolute Nucleated RBC 0.000 Nucleated RBC % (auto) 0.0 PT 13.4 H INR 1.2 H APTT 37.8 H Anion Gap Estim Creat Clear Calc Estimated GFR Random Glucose Lactic Acid Calcium Magnesium Total Bilirubin AST ALT Alkaline Phosphatase Troponin I High Sens 85.6 H B-Natriuretic Peptide Total Protein Albumin Urine Color Urine Appearance Urine pH Ur Specific [place] Urine Protein Urine Glucose (UA) Urine Ketones Urine Blood Urine Nitrite Ur Leukocyte Esterase Urine RBC Urine WBC Ur Squamous Epith Cells Calcium Oxalate Crystal Urine Bacteria Hyaline Casts COVID-19 ([facility]) COVID-19 Clin Com Influenza Type A (PCR) Influenza Type B (PCR) RSV RNA Qual (PCR) SARS-CoV-2 RNA (RT-PCR) 07/12/22 06:19 MCV MCH MCHC RDW Plt Count MPV Immature Gran % (Auto) Neut % (Auto) Lymph % (Auto) [place] % (Auto) Eos % (Auto) Baso % (Auto) Lymph # (Auto) [place] # (Auto) Eos # (Auto) Baso # (Auto) Abs Immat Gran (auto) Absolute Neuts (auto) Absolute Nucleated RBC Nucleated RBC % (auto) PT INR APTT Anion Gap 13 Estim Creat Clear Calc 97.7 Estimated GFR > 60 Random Glucose 162 H Lactic Acid Calcium 8.8 Magnesium Total Bilirubin 0.8 AST 25 ALT 19 Alkaline Phosphatase 90 Troponin I High Sens B-Natriuretic Peptide Total Protein 6.6 Albumin 3.6 Urine Color Urine Appearance Urine pH Ur Specific [place] Urine Protein Urine Glucose (UA) Urine Ketones Urine Blood Urine Nitrite Ur Leukocyte Esterase Urine RBC Urine WBC Ur Squamous Epith Cells Calcium Oxalate Crystal Urine Bacteria Hyaline Casts COVID-19 ([facility]) COVID-19 Clin Com Influenza Type A (PCR) Influenza Type B (PCR) RSV RNA Qual (PCR) SARS-CoV-2 RNA (RT-PCR) Assessment and Plan (1) Atrial fibrillation with RVR: Status: Acute (2) Acute exacerbation of CHF (congestive heart failure): Status: Acute (3) Cough: Status: Acute Assessment and Plan: 81-year-old male with past medical history of cortical basal degeneration, hypertension, CAD status post CABG, AVR, presents the hospital with shortness of breath tachycardia found to have AFib with RVR CHF exacerbation question of CHF exacerbation-etiology unclear, no prior hx Has elevated BNP,? increased dyspnea, recieved iv lasix echo pending less likely chf -noprior hx ,sob improved ?multifactorial has hx of pulm fibros is. willl stop lasix moniter seen by speech and swallow:diet updated . AFib with RVR-? new onset -? elevated chest Vasc score of 4 s/w cardio -hr improving-stop cardizem, metoprolol 25 mg po qid , iv digoxinx3 doses . hypertension-? stable hold coreg since started on metoprolol. history of CAD- no chest pain -? continue aspirin, carvedilol, statin ? hypothyroidism-? continue levothyroxine ?DVT prophylaxis:? Lovenox ?need for inpatient stay: AFib with RVR -need iv rate control medication, tele monitering, workup for chf pending Time Spent With Patient Time: Total time managing care of this patient today ____ minutes. Quality Stroke Does the patient have a stroke diagnosis?: No VTE Prior VTE?: No VTE Risk Level:: Medical - moderate - high VTE Device Contraindication: Treatment Not Indicated VTE Drug Contraindication: N/A - Med Ordered
[2022-07-12] MEDS: Metoprolol Tartrate 25 MG TABLET PO ×2 (16:50→21:21)
[2022-07-12] MEDS: Digoxin 0.5 MG/2 ML AMPUL 0.25 MG IVPUSH ×2 (16:51→21:21)
--- NOTE | 2022-07-12 17:04 | MHC.SL.SWA ---
Speech Pathologist Impression: Risk of aspiration, oral phase dysphagia Risk of Aspiration Due to: Neurological Condition Dysphasia Diet Status: No change, continue on NDD3/thin Pt had MBSS in 05/2020: Based on the results of this evaluation, recommend CHOPPED/ADVANCED (NDD3) solids and THIN liquids with pills WHOLE in puree or liquid depending on pt's preference. Due to past history of choking, recommend the following precautions: -upright at 90 degrees when eating and drinking -small bites and sips -alternate solids with liquids -chew food well -moisten solids with sauces and gravies whenever possible for ease of mastication -avoid tough and sticky solids -avoid food causing known irritation Liquid Consistency and Strategies for Safe Swallow: Liquid Intake Recommendation: Thin Liquid Intake Strategies: Small Sips No Straws Solid Food Consistency: Dietary Recommendations: Chopped/Advanced (NDD3) Oral Medication Intake: Whole with Puree Please contact the pharmacy regarding appropriate crushable or liquid drug formulations that are available whenever modified delivery is recommended. Compensatory Strategies and Precautions to be Taken for Safe Swallow: Sitting Upright (90 deg) Double Swallow No Straw Small Bites and Sips Rate of Ingestion Change Avoid Specific Foods Supervision While Eating and Drinking for Safe Swallow: Total Supervision (1:1) Foods to Avoid: Hard, tough to chew solids; mixed consistencies Swallowing Recommended Treatments: Compens. Strategy Educat. Recommendation for Speech: Outpatient Speech Therapy Inpatient Speech Therapy Modified Barium Swallow Study - Inpatient Modified Barium Swallow Study - Outpatient Comment: Given underlying neurological condition and reports of intermittent choking, recommend repeat-MBSS during inpatient stay or on outpatient basis. Discussed w/ attending MD. Also recommend outpatient [id number] evaluation. Quality Control Technician Clinican/Clinical Fellow: No Supervisory Statement: I have reviewed and agree with the student/clinical fellow's documentation: N/A Speech Language Pathologist: Addis Velez M.A., CCC-TREATMENT SPECIALIST
[2022-07-12] MEDS: Atorvastatin Calcium 80 MG TABLET PO (21:21)
[2022-07-13 01:28] LABS: INTERNATIONAL NORM RATIO 1.2 (0.9-1.1); Prothrombin Time 13.3 SEC (10.0-13.1)
[2022-07-13] MEDS: Enoxaparin Sodium 100 MG/ML SYRINGE SUBCUT ×2 (03:30→15:10)
[2022-07-13 04:00] VITALS: BP 122/67; PULSE 67; RESP 16; TEMP 36.8; O2SAT 97
[2022-07-13] MEDS: Digoxin 0.5 MG/2 ML AMPUL 0.25 MG IVPUSH (05:17)
[2022-07-13 06:50] LABS: Hematocrit 39.9 % (42.0-52.0); Hemoglobin 13.5 g/dl (14.0-18.0); Mean Corpuscular HGB Conc 33.8 g/dl (31.0-36.0); Mean Corpuscular Hemoglobin 30.1 pg (27.0-33.0); Mean Corpuscular Volume 89.1 fL (80.0-98.0); Mean Platelet Volume 9.8 fL (9.4-12.4); Platelet Count 209 X10*3/uL (160-400); Red Blood Count 4.48 X10*6/uL (4.60-5.80); White Blood Count 13.5 X10*3/uL (4.8-10.8)
--- NOTE | 2022-07-13 06:58 | PM.EVENT ---
Event Note Date of Service: 07/13/22 Event Note: pt had a 3 second pause, asymptomatic Time Spent With Patient Time: Total time managing care of this patient today ____ minutes.
--- NOTE | 2022-07-13 07:07 | PC.NURSE ---
Pt had 3.3 sec pause @ 6:36am. aware.
[2022-07-13 07:49] VITALS: BP 117/66; PULSE 69; RESP 20; TEMP 37.2; O2SAT 97
[2022-07-13] MEDS: 0.9 % Sodium Chloride Flush 3 ML SYRINGE IVFLUSH ×3 (09:06→23:07)
[2022-07-13] MEDS: Cholecalciferol (Vitamin D3) 25 MCG TABLET 50 MCG PO (09:06)
[2022-07-13] MEDS: Docusate Sodium 100 MG CAPSULE PO ×2 (09:06→23:07)
[2022-07-13] MEDS: Multivitamin TABLET 1 TAB PO (09:06)
[2022-07-13] MEDS: Ascorbic Acid 500 MG TABLET PO (09:06)
[2022-07-13] MEDS: Levothyroxine Sodium 88 MCG TABLET PO (09:06)
[2022-07-13] MEDS: carvediloL 3.125 MG TABLET PO ×2 (10:57→23:06)
[2022-07-13 11:36] VITALS: BP 110/59; PULSE 69; RESP 20; TEMP 37; O2SAT 93
--- NOTE | 2022-07-13 12:29 | P.PNIM_ITS ---
Subjective Subjective Date of Service: 07/13/22 Interval History: afib Review of Systems has sinus pasuse around 3.4 sec tachycardia improved -denies any chest pain or sob. mild dry cough Physical Exam Vital Signs: Vital Signs: Last Vital Signs Temp 98.6 F 07/13/22 11:36 Pulse 69 07/13/22 11:36 Resp 20 07/13/22 11:36 BP 110/59 L 07/13/22 11:36 Pulse Ox 93 07/13/22 11:36 O2 Del Method Room Air 07/13/22 11:36 O2 Flow Rate 2 07/13/22 07:49 BMI result Body Mass Index 28.9 Appearance: Alert.? Oriented X3.? seems comfortable , not in acute distress. cvs: rrr, [id number] . res: clear to auscultation ,no rhonchii or wheezing abd: no rebound or guarding ,nt, bs present. ext pulses present , no cyanosis . neuro: axo3 , nonfocal. Objective Data Active Medications Acetaminophen (Acetaminophen 325 Mg Tablet) 650 mg PO Q6H PRN PRN Reason: Pain, Mild (Pain Scale 1-3) Ascorbic Acid (Ascorbic Acid 500 Mg Tablet) 500 mg PO DAILY [facility] Last Admin: 07/13/22 09:06 Dose: 500 mg Documented By: BRENDA Aspirin (Aspirin Enteric Coated 81 Mg Tablet.) 81 mg PO .[facility] [place] Atorvastatin Calcium (Atorvastatin Calcium 80 Mg Tablet) 80 mg PO BEDTIME [facility] Last Admin: 07/12/22 21:21 Dose: 80 mg Documented By: JR Carvedilol (Carvedilol 3.125 Mg Tablet) 3.125 mg PO BID [facility]; Protocol Last Admin: 07/13/22 10:57 Dose: 3.125 mg Documented By: BRENDA Docusate Sodium (Docusate Sodium 100 Mg Capsule) 100 mg PO DAILY PRN PRN Reason: Constipation Docusate Sodium (Docusate Sodium 100 Mg Capsule) 100 mg PO BID [facility] Last Admin: 07/13/22 09:06 Dose: 100 mg Documented By: BRENDA Enoxaparin Sodium (Enoxaparin Sodium 100 Mg/Ml Syringe) 100 mg SUBCUT Q12H [facility] Last Admin: 07/13/22 03:30 Dose: 100 mg Documented By: JR Levothyroxine Sodium (Levothyroxine Sodium 88 Mcg Tablet) 88 mcg PO DAILY [facility] Last Admin: 07/13/22 09:06 Dose: 88 mcg Documented By: BRENDA Loratadine (Loratadine 10 Mg Tablet) 10 mg PO DAILY PRN PRN Reason: Allergy Symptoms Multivitamins/Vitamin C (Multivitamin Tablet) 1 tab PO DAILY [facility] Last Admin: 07/13/22 09:06 Dose: 1 tab Documented By: BRENDA Ondansetron HCl (Ondansetron Hcl 4 Mg/2 Ml Vial) 4 mg IVPUSH Q8H PRN PRN Reason: Nausea and Vomiting Sodium Chloride (0.9 % Sodium Chloride Flush 3 Ml Syringe) 3 ml IVFLUSH QSHIFT [facility] Last Admin: 07/13/22 09:06 Dose: 3 ml Documented By: BRENDA Vitamin D (Cholecalciferol (Vitamin D3) 25 Mcg Tablet) 50 mcg PO DAILY [facility] Last Admin: 07/13/22 09:06 Dose: 50 mcg Documented By: BRENDA Labs 07/13/22 06:41 07/12/22 06:19 Labs: Laboratory Results - last 24 hr 07/13/22 07/13/22 01:16 06:41 MCV 89.1 MCH 30.1 MCHC 33.8 RDW 14.0 Plt Count 209 MPV 9.8 Absolute Nucleated RBC 0.000 Nucleated RBC % (auto) 0.0 PT 13.3 H INR 1.2 H Microbiology Microbiology Results: Microbiology 07/11/22 23:42 Blood Culture - Preliminary Blood - Venous No growth after 24 hours. 07/11/22 23:42 Blood Culture - Preliminary Blood - Venous No growth after 24 hours. Assessment and Plan (1) Sinus pause: Status: Acute Plan 81-year-old male with past medical history of cortical basal degeneration, hypertension, CAD status post CABG, AVR, presents the hospital with shortness of breath tachycardia found to have AFib with RVR CHF exacerbation ?question of CHF exacerbation-etiology unclear, no prior hx ?Has elevated BNP,? increased dyspnea, recieved iv lasix echo noted ef 60% less likely chf -noprior hx ,sob improved? ?multifactorial has hx of pulm fibrosis. willl stop lasix moniter seen by speech and swallow:diet updated . ?AFib with RVR-? new onset elevated chest Vasc score of 4 received diltiazem drip on admission, in heart rate improvin, switched to IV digoxin and and p.o. metoprolol-patient now back to sinus rhythm, had sinus pause of 3.4 sec nd this morning. Patient is asymptomatic Discussed with cardio:switched to lower dose coreg for now. ?hypertension-? stable started coreg as above. ?history of CAD- no chest pain: continue aspirin, carvedilol, statin. ? hypothyroidism-? continue levothyroxine ?DVT prophylaxis:? Lovenox ?need for inpatient stay: sinus pause ,moniter on tele -started low dose bb Time Spent With Patient Time: Total time managing care of this patient today ____ minutes. Quality Stroke Does the patient have a stroke diagnosis?: No VTE Prior VTE?: No VTE Risk Level:: Medical - moderate - high VTE Device Contraindication: Treatment Not Indicated VTE Drug Contraindication: N/A - Med Ordered
[2022-07-13 15:53] VITALS: BP 105/53; PULSE 66; RESP 18; TEMP 37; O2SAT 97
[2022-07-13 20:00] VITALS: BP 118/64; PULSE 64; RESP 18; TEMP 36.8; O2SAT 96
[2022-07-13 23:03] VITALS: BP 129/61; PULSE 67; RESP 16; TEMP 36.7; O2SAT 94
[2022-07-13] MEDS: Atorvastatin Calcium 80 MG TABLET PO (23:07)
[2022-07-14] MEDS: Enoxaparin Sodium 100 MG/ML SYRINGE SUBCUT (03:41)
[2022-07-14 03:45] VITALS: BP 117/57; PULSE 57; RESP 20; TEMP 36.9; O2SAT 95
[2022-07-14 08:00] VITALS: BP 118/58; PULSE 64; RESP 20; TEMP 36.7; O2SAT 96
[2022-07-14] MEDS: Ascorbic Acid 500 MG TABLET PO (09:11)
[2022-07-14] MEDS: Cholecalciferol (Vitamin D3) 25 MCG TABLET 50 MCG PO (09:11)
[2022-07-14] MEDS: 0.9 % Sodium Chloride Flush 3 ML SYRINGE IVFLUSH (09:11)
[2022-07-14] MEDS: carvediloL 3.125 MG TABLET PO (09:11)
[2022-07-14] MEDS: Docusate Sodium 100 MG CAPSULE PO (09:11)
[2022-07-14] MEDS: Multivitamin TABLET 1 TAB PO (09:11)
--- NOTE | 2022-07-14 10:40 | P.F2F_ITS ---
Service Date Service Date: 07/14/22 Encounter Date of encounter: 07/14/22 Encounter: afib with rvr ,chf unlikely Reasons for Services Signs and symptoms assessed: moniter for palpitations, shortness of breath Reason for penitentiary: CV/CP assess and/or care, medication management, medication treatment and teach disease management Reason for physical therapy: home safety and mobility, therapeutic exercises, restore joint function, gait/transfer training, assess need for DME, ADL training, energy conservation and other MD Overseeing Care: Rosales Ramirez Homebound: Leaving the home is medically contraindicated at this time without the asist of a device and/or another person due th the listed conditions above and below. Reason homebound: weakness related to hospital stay Homebound supporting statement: Patient has multiple comorbidities-including AFib with RVR, IPF, generalized weak -may need help with appointments, blood draws, PT. Certification: Based on the above findings, I certify that this patient is confined to the home and needs intermittent penitentiary care, physical therapy and/or speech the rapy, or continues to need occupational therapy. The patient is under my care, and I have initiated the establishment of the plan of care. The patient will be followed by a physician who will periodically review the plan of care. Time Spent With Patient Time: Total time managing care of this patient today ____ minutes.
--- NOTE | 2022-07-14 10:59 | MHC.CM.PN ---
Patient has been medically cleared for dc to home today with new VNA. CM met with Patient at bedside and he is accepting of [facility](who has been made aware of today's dc). Last IMM addressed on 07/12/2022.
--- NOTE | 2022-07-14 11:16 | PM.PNCARD ---
Subjective Subjective Date of Service: 07/14/22 Interval history: Seen examined at bedside. Feeling better. In sinus rhythm. It appears his oxygen demand changed and he is on high 3 L per minute oxygen by nasal cannula. Physical Exam Vital Signs: Last Vital Signs Temp 98.0 F 07/14/22 08:00 Pulse 64 07/14/22 08:00 Resp 20 07/14/22 08:00 BP 118/58 L 07/14/22 08:00 Pulse Ox 96 07/14/22 08:00 O2 Del Method Nasal Cannula 07/14/22 08:00 O2 Flow Rate 3 07/14/22 08:00 BMI result Body Mass Index 28.9 GENERAL APPEARANCE: in no acute distress, pleasant. NECK: no carotid bruit, no jugular venous distention. SKIN: no suspicious lesions, warm and dry. HEART: no murmurs, regular rate and rhythm. LUNGS: Fine crackles both bases. ABDOMEN: soft, nontender. EXTREMITIES: no edema. PERIPHERAL PULSES: equal. 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 He has reverted back to sinus rhythm currently. He was started on anticoagulation given high chads Vasc score. Aspirin should be stopped. He had desaturation today. He has not been in heart failure. The crackles on exam are due to pulmonary fibrosis. Check chest x-ray. Thank you for allowing me to participate in the care of your patient. Please feel free to contact me if you have any questions. Time Spent With Patient Time: Total time managing care of this patient today ____ minutes. Progress Note: Quality Stroke Does the patient have a stroke diagnosis?: No Procedures Date of Service Date of Service: 07/14/22
--- NOTE | 2022-07-14 11:28 | HO.PM.IMPN ---
Subjective Subjective Date of Service: 07/15/22 Interval History: afib Review of Systems HR rate improved denies any chest pain has cough,? desaturation last night Physical Exam Vital Signs: Vital Signs: Last Vital Signs Temp 98.0 F 07/14/22 08:00 Pulse 64 07/14/22 08:00 Resp 20 07/14/22 08:00 BP 118/58 L 07/14/22 08:00 Pulse Ox 96 07/14/22 08:00 O2 Del Method Nasal Cannula 07/14/22 08:00 O2 Flow Rate 3 07/14/22 08:00 BMI result Body Mass Index 28.9 Appearance: Alert.? Oriented X3.? seems comfortable , not in acute distress. cvs: rrr, [id number] . res: clear to auscultation ,no rhonchii or wheezing abd: no rebound or guarding ,nt, bs present. ext pulses present , no cyanosis . neuro: axo3 , nonfocal. Objective Data Active Medications Acetaminophen (Acetaminophen 325 Mg Tablet) 650 mg PO Q6H PRN PRN Reason: Pain, Mild (Pain Scale 1-3) Albuterol/Ipratropium (Albuterol/Iprat 2.5/0.5mg 3 Ml Ampul.Neb) 3 ml INHALE RQ4H WHILE AWAKE COUNT INCLUDES THE [facility] Apixaban (Apixaban 5 Mg Tablet) 5 mg PO BID COUNT INCLUDES THE [facility] Ascorbic Acid (Ascorbic Acid 500 Mg Tablet) 500 mg PO DAILY COUNT [facility]CLUDES [facility] Last Admin: 07/14/22 09:11 Dose: 500 mg Documented By: BRENDA Atorvastatin Calcium (Atorvastatin Calcium 80 Mg Tablet) 80 mg PO BEDTIME COUNT [facility]CLUDES [facility] Last Admin: 07/13/22 23:07 Dose: 80 mg Documented By: SUSAN Carvedilol (Carvedilol 3.125 Mg Tablet) 3.125 mg PO BID COUNT INCLUDES [facility]; Protocol Last Admin: 07/14/22 09:11 Dose: 3.125 mg Documented By: BRENDA Docusate Sodium (Docusate Sodium 100 Mg Capsule) 100 mg PO DAILY PRN PRN Reason: Constipation Docusate Sodium (Docusate Sodium 100 Mg Capsule) 100 mg PO BID COUNT [facility]CLUDES [facility] Last Admin: 07/14/22 09:11 Dose: 100 mg Documented By: BRENDA Guaifenesin (Guaifenesin 100 Mg/5 Ml Liquid) 10 ml PO Q4H PRN PRN Reason: Cough Levothyroxine Sodium (Levothyroxine Sodium 88 Mcg Tablet) 88 mcg PO DAILY@0600 COUNT INCLUDES THE [facility] Loratadine (Loratadine 10 Mg Tablet) 10 mg PO DAILY PRN PRN Reason: Allergy Symptoms Multivitamins/Vitamin C (Multivitamin Tablet) 1 tab PO DAILY COUNT [facility]CLUDES [facility] Last Admin: 07/14/22 09:11 Dose: 1 tab Documented By: BRENDA Ondansetron HCl (Ondansetron Hcl 4 Mg/2 Ml Vial) 4 mg IVPUSH Q8H PRN PRN Reason: Nausea and Vomiting Sodium Chloride (0.9 % Sodium Chloride Flush 3 Ml Syringe) 3 ml IVFLUSH QSHIFT COUNT INCLUDES [facility] Last Admin: 07/14/22 09:11 Dose: 3 ml Documented By: BRENDA Vitamin D (Cholecalciferol (Vitamin D3) 25 Mcg Tablet) 50 mcg PO DAILY COUNT INCLUDES [facility] Last Admin: 07/14/22 09:11 Dose: 50 mcg Documented By: BRENDA Labs 07/13/22 06:41 07/12/22 06:19 Microbiology Microbiology Results: Microbiology 07/11/22 23:42 Blood Culture - Preliminary Blood - Venous No growth after 48 hours. 07/11/22 23:42 Blood Culture - Preliminary Blood - Venous No growth after 48 hours. Assessment and Plan (1) Sinus pause: Status: Acute Plan 81-year-old male with past medical history of cortical basal degeneration, hypertension, CAD status post CABG, AVR, presents the hospital with shortness of breath tachycardia found to have AFib with RVR CHF exacerbation ?question of CHF exacerbation-etiology unclear, no prior hx ?Has elevated BNP,? increased dyspnea, recieved iv lasix echo noted ef 60% less likely chf -noprior hx willl stop lasix moniter desats ,cough: will check cbc,bnp,cxr has hx of ipf also seen by speech and swallow:diet updated . ?AFib with RVR-? new onset elevated chest Vasc score of 4 no new pause Discussed with cardio:switched to lower dose coreg for now. ?hypertension-? stable started coreg as above. ?history of CAD- no chest pain: continue aspirin, carvedilol, statin. ? hypothyroidism-? continue levothyroxine ?DVT prophylaxis:? Lovenox ?need for inpatient stay: sinus pause ,moniter on tele -started low dose bb Time Spent With Patient Time: Total time managing care of this patient today ____ minutes. Quality Stroke Does the patient have a stroke diagnosis?: No VTE Prior VTE?: No VTE Risk Level:: Medical - moderate - high VTE Device Contraindication: Treatment Not Indicated VTE Drug Contraindication: N/A - Med Ordered
[2022-07-14] MEDS: Apixaban 5 MG TABLET PO (11:33)
[2022-07-14 11:36] VITALS: BP 118/57; PULSE 59; RESP 18; TEMP 36.4; O2SAT 91
[2022-07-14 11:51] LABS: Hematocrit 38.7 % (42.0-52.0); Hemoglobin 13.2 g/dl (14.0-18.0); Mean Corpuscular HGB Conc 34.1 g/dl (31.0-36.0); Mean Corpuscular Hemoglobin 30.5 pg (27.0-33.0); Mean Corpuscular Volume 89.4 fL (80.0-98.0); Mean Platelet Volume 9.5 fL (9.4-12.4); Platelet Count 204 X10*3/uL (160-400); Red Blood Count 4.33 X10*6/uL (4.60-5.80); Red Cell Distribution Width 13.9 % (11.0-16.0); White Blood Count 9.2 X10*3/uL (4.8-10.8)
[2022-07-14 12:12] LABS: B Type Natriuretic Peptide 144 pg/mL (<100)
--- NOTE | 2022-07-14 12:44 | MHC.CM.PN ---
now stating that Patient is likely to dc to home today (with [facility]); Home O2 Eval is needed.CM will follow.
[2022-07-14 13:40] VITALS: PULSE 65; PULSE 67; PULSE 69; PULSE 71; O2SAT 87; O2SAT 90; O2SAT 91; O2SAT 94
--- NOTE | 2022-07-14 14:54 | P.DS_ITS ---
DS: Providers Provider Date of Service: 07/14/22 Date of admission: 07/12/22 01:13 Date of discharge: 07/14/22 Primary care physician: Rosales Ramirez MD Consults: 07/12/22 12:25 Consult to Cardiology Routine Consulting Provider: [facility] [place] [facility] Reason for consultation: chf /afib Has provider been notified: No Attending physician on discharge: Yudy Garvey Discharging clinician: Yudy Garvey DS: Diagnosis Discharge Diagnosis (1) Sinus pause: Status: Acute (2) PAF (paroxysmal atrial fibrillation): Status: Acute (3) Pulmonary fibrosis: Status: Acute DS: Summary Hospital Course Hospital Course: 81-year-old male with past medical history of cortical basal degeneration, HLD, hypertension, CAD status post double bypass,? atrial valve replacement, hypothyroidism, pulmonary fibrosis does the hospital after his noticed him to be increasingly lethargic, and and a pulse ox noted to be tachycardic.? According to the , patient started having a? mildly productive cough the day prior, she also noticed him to be increasingly short of breath, as well as having shallow fast breathing on minimal activity, a were running errands the day of presentation when she noticed that the patient had progressively becoming more lethargic, and weak.? She checked his pulse ox at home noted him to have a heart rate of 120-140, therefore called his doctor and brought him to the hospital.? Patient is awake, alert, but has difficulty with speech due to his cortical basal? degeneration, and his states that he has baseline mobility issues due to the disease.? Patient otherwise denies any chest pain, no? abdominal pain nausea vomiting, no diarrhea constipation, no urinary symptoms and no lower extremity edema.? No headache or change in vision, no new numbness weakness or tingling otherwise.? ?patient's does report that he does choke on his food and he is not on any special diet except chopped. On arrival to the ED patient was noted to have a heart rate in the 130s, found to be in AFib with RVR, Satting 91% on room air at rest Labs are significant for BNP of 588, troponin of 80.9 decreased 85.6 on repeat, Chest x-ray shows no acute cardiopulmonary findings, finding suggestive of chronic interstitial lung disease ?patient started on Lasix, and will be admitted for further management. Hospital course: Patient came to the hospital because of palpitations generalized weakness and some cough: Patient was found to have AFib with RVR, also initially was thought to have possible CHF component of started on IV Lasix and IV Cardizem for heart rate control: Patient heart rate seems to be improving and subsequently was started on digoxin and metoprolol and diltiazem was discontinued. Patient had converted into sinus rhythm and also had a sinus pause -seen by Cardiology his Coreg was changed to 3.125 mg q.12 (metoprolol and digoxin discontinued),also satrted on eliquis. Patient shortness of breath seems to be improved significantly-possible multifcaorial afib rvr /ipf : sob improved , will stop iv lasix since hr controlled(afib with rvr might have contributed some congestion earlier in the course, echo seems EF is 60 -65%, discussed with Cardiology: Unlikely CHF and does not need Lasix currently). wBC normalized, no fever, cxr-possible iterstitial change , no new changes-discussed with the Pulmonary probably desaturation related to his pulmonary fibrosis. Home oxygen evaluation done and patient is going home with oxygen. Patient also going with VNA PT. Patient was also seen by speech and swallow -recomended chopped/advnaced (ndd3) diet. consider outpatient MBss outpatient. plan: continue coreg as adjusted, eliquis . home oxygen for ipf and consider outpatient pulmonary follow up. cardiology may arrange their own appointment. above management discussed with patient in detailed length -he understands and agreement with above plan , time spent 50 min. Time Spent with Patient Time attestation: Total time managing care of this patient today ____ minutes. Discharge coordination time: Greater than 30 minutes Quality: Safe Use of Opioids Does Pt have an Active Cancer Diagnosis on the Problem List?: No Quality: Stroke Does the patient have a stroke diagnosis?: No Physical Exam Vital Signs: Vital Signs: Last Vital Signs Temp 97.6 F 07/14/22 11:36 Pulse 59 07/14/22 11:36 Resp 18 07/14/22 11:36 BP 118/57 L 07/14/22 11:36 Pulse Ox 91 L 07/14/22 11:36 O2 Del Method Room Air 07/14/22 11:36 O2 Flow Rate 3 07/14/22 08:00 BMI result Body Mass Index 28.9 Appearance: Alert.? Oriented X3.? seems comfortable , not in acute distress. cvs: rrr, [id number] . res: clear to auscultation ,no rhonchii or wheezing abd: no rebound or guarding ,nt, bs present. ext pulses present , no cyanosis . neuro: axo3 , nonfocal. DS: Data Data Completed and Pending Labs on day of discharge: Laboratory Results - last 24 hr 07/14/22 07/14/22 11:32 11:32 WBC 9.2 RBC 4.33 L Hgb 13.2 L Hct 38.7 L MCV 89.4 MCH 30.5 MCHC 34.1 RDW 13.9 Plt Count 204 MPV 9.5 Absolute Nucleated RBC 0.000 Nucleated RBC % (auto) 0.0 B-Natriuretic Peptide 144 H Preliminary micro results at discharge 07/11/22 23:42 Blood Culture - Preliminary Blood - Venous No growth after 48 hours. 07/11/22 23:42 Blood Culture - Preliminary Blood - Venous No growth after 48 hours. Imaging Chest x-ray: Radiologist's impression: ITS Impressions Chest X-Ray 07/11/22 23:20 IMPRESSION: No acute cardiopulmonary findings. Findings suggestive of chronic interstitial lung disease. Chest X-Ray 07/14/22 12:05 IMPRESSION: Coarse interstitial markings with similar distribution consistent with the patient's known chronic interstitial disease. A definitive new abnormality is not seen. Discharge Plan Discharge Anticipated Discharge Date/Time: 07/14/22 10:24 Patient Disposition: Home Health Service Discharge Diagnosis: afib with rvr Referrals: [facility] [Outside] - 1 Week Rosales Ramirez MD [Primary Care Provider] - 1 Week Discharge Medications: New Eliquis 5 mg Tablet 5 mg PO BID Qty: 60 0RF Continued levothyroxine [Levoxyl] 88 mcg tablet 88 mcg PO DAILY atorvastatin [Lipitor] 80 mg tablet 80 mg PO BEDTIME multivitamin [Daily Multi-Vitamin] Tablet 1 tab PO DAILY PreserVision AREDS 7,160 unit- 113 mg-100 unit tablet 1 tab PO BID Rx Instructions: administer with AM and PM meals ascorbic acid (vitamin C) 500 mg capsule 500 mg PO DAILY cholecalciferol (vitamin D3) 50 mcg (2,000 unit) capsule 50 mcg PO DAILY docusate sodium 100 mg capsule 100 mg PO BID cetirizine [Zyrtec] 10 mg tablet 10 mg PO DAILY PRN (Reason: Allergy Symptoms) Changed carvedilol 6.25 mg tablet 3.125 mg PO BID Qty: 15 0RF Rx Instructions: must administer with a meal/food Discontinued aspirin 81 mg tablet,delayed release (DR/EC) 81 mg PO .[facility] Discharge Orders: Discharge Order (Routine); Ordered 07/14/22 Ordered By: Yudy Garvey Diet: Advance to usual diet Activity on Discharge: As tolerated Stand Alone Forms: Patient Portal Discharge page Care Plan Goals: Patient came to the hospital because of palpitations generalized weakness and some cough: Patient was found to have AFib with RVR, also initially was thought to have possible CHF component of started on IV Lasix and IV Cardizem for heart rate control: Patient heart rate seems to be improving and subsequently was started on digoxin and metoprolol and diltiazem was discontinued. Patient had converted into sinus rhythm and also had a sinus pause -seen by Cardiology his Coreg was changed to 3.125 mg q.12 (metoprolol and digoxin discontinued),also satrted on eliquis. Patient shortness of breath seems to be improved significantly-possible multifcaorial afib rvr /ipf : sob improved , will stop iv lasix since hr controlled(afib with rvr might have contributed some congestion earlier in the course, echo seems EF is 60 -65%, discussed with Cardiology: Unlikely CHF and does not need Lasix currently). wBC normalized, no fever, discussed with the Pulmonary probably desaturation related to his pulmonary fibrosis. Home oxygen evaluation done and patient is going home with oxygen. Patient also going with VNA PT. Health Concerns: as above. Plan of Treatment: as above. Assessment: as above.
--- NOTE | 2022-07-14 14:56 | MHC.CM.PN ---
Per RT/Brinda, home O2 is being arranged for Patient for anticipated dc to home today.
--- NOTE | 2022-07-14 14:59 | MHC.CM.PN ---
Patient's RN/Violeta came in to to obtain the Eliquis 30 day fee trial to give to Patient.
== END 2022-07-14 17:39 | disposition home health service (06) | DRG 310 ==
LOC: HO.ED 07-12 01:06 → HO.EDOVER 07-12 01:27 → HO.IMC 07-12 07:48
PROVIDERS: Admitting Provider Internal Medicine; Emergency Provider Emergency Medicine Emergency Medical Services; PCP Internal Medicine; Visit Provider Internal Medicine
DX: I48.0 Paroxysmal atrial fibrillation (principal); I49.5 Sick sinus syndrome; E03.9 Hypothyroidism, unspecified; G31.85 Corticobasal degeneration; J84.10 Pulmonary fibrosis, unspecified; I10 Essential (primary) hypertension; I25.10 Atherosclerotic heart disease of native coronary artery without angina pectoris; Z95.1 Presence of aortocoronary bypass graft; Z95.2 Presence of prosthetic heart valve; Z88.0 Allergy status to penicillin; Z79.890 Hormone replacement therapy; Z79.899 Other long term (current) drug therapy
CPT/HCPCS: 0241U; 36415; 71045; 71046; 80048; 80053; 81001; 83605; 83735; 83880; 84484; 85025; 85027; 85610; 85730; 87040; 87635; 92610; 93005; 93306; 97163; 99285; J0692; J1160; J1650; J1940; J2930; Q9957

== ENCOUNTER → 2022-07-23 14:06 | Outpatient (BNVA) | payer MEDICARE, SELFPAY | PROVIDERS: PCP Internal Medicine; Visit Provider Internal Medicine | DX: J84.10 Pulmonary fibrosis, unspecified (principal); J30.9 Allergic rhinitis, unspecified; R05.9 Cough, unspecified; I50.9 Heart failure, unspecified; R09.02 Hypoxemia | CPT/HCPCS: 99212 ==

== ENCOUNTER 2022-09-17 13:10 | Outpatient (AMB) | payer MEDICARE, SELFPAY ==
[2022-09-17 13:16] VITALS: BP 114/78; PULSE 69; O2SAT 95
--- NOTE | 2022-09-17 13:16 | MHC.OFFVIS ---
Intake Vital Signs 09/17/22 13:16 Height 6 ft BP 114/78 Blood Pressure Location Lt brachial Position Sitting Pulse 69 Pulse Source Pulse Oximeter Pulse Oximetry (%) 95 Oxygen Delivery Method Room Air Intake Visit Reasons: COPD Intake Note: Pt presents today with his for a f/u. He reports that he has been using the oxygen more frequently when he is short of breath or when his oxygen level drops below 90. Student Life Vice President Required: No Allergies meperidine [From Demerol] Adverse Reaction (Unknown, Verified 09/17/22 13:21) Unknown morphine Adverse Reaction (Unknown, Verified 09/17/22 13:21) Unknown pregabalin [From Lyrica CR] Adverse Reaction (Unknown, Verified 09/17/22 13:21) Unknown Medication List - Last Reviewed 09/17/22 by Kae Hodges CMA apixaban (Eliquis) 5 mg PO BID ascorbic acid (vitamin C) 500 mg PO DAILY atorvastatin (Lipitor) 80 mg PO BEDTIME carvedilol 3.125 mg (1/2 x 6.25 mg) PO BID cetirizine (Zyrtec) 10 mg PO DAILY PRN cholecalciferol (vitamin D3) 50 mcg PO DAILY docusate sodium 100 mg PO BID levothyroxine (Levoxyl) 88 mcg PO DAILY vitamins A,C,G-zynt-omypko 2,148 mcg-113 mg-45 mg-17.4mg (PreserVision AREDS) 1 tab PO BID Do you need a note to return to daycare/school/sports/work: No HPI COPD HPI Details Mr. Godoy, 82 years old, very pleasant gentleman is here for follow-up after 2 months. He has had no acute respiratory distress in the last 2 months, but does have intermittent bouts of cough with expectoration of minimal mucus. On these occasions when he uses the incentive spirometer he feels better, according to his his O2 sat dips below 90% only once in a while when she puts him on oxygen for 1-2 hours. He sleeps good but during the sleep his has checked his O2 sats sometime below 90%. She does not want to disturb him so does not put the oxygen on during sleep. He swallows okay and has had no incidence of dysphagia. [facility] Medical History Allergic rhinitis Corticobasal degeneration Cough Hyperlipidemia Hypertension Hypothyroid Hypoxemia Pneumonitis Pulmonary fibrosis Surgical History H/O aortic valve repair Hx of CABG Social History Household Members: Spouse Patient Tobacco Use Status: Never used Tobacco e-Cigarette/Vaping Use: Never Used Advance Directives Date on File: 04/09/20 service: Yes Current occupational status: retired Review of Systems Const All systems reviewed & are unremarkable except as noted in HPI and below Reports weakness (General muscular weakness) Eyes Reports no additional complaints ENT Reports no additional complaints Card Denies chest pain, Denies irregular heart rhythm and Denies leg edema Resp Reports as per HPI GI Reports no additional complaints Reports no additional complaints Musc Reports abnormal gait (Walking is slow and he does need walker to stabilize his gait) Skin/Breast Reports system reviewed and no additional complaints, except as documented Neuro Reports abnormal gait (Walking is slow and he does need walker to stabilize his gait) and Reports weakness (General muscular weakness) Psych Reports no additional complaints Physical Exam Const General: comfortable, no acute distress, alert and awake Orientation/consciousness: patient oriented x3 HEENT Head: Yes normal to inspection General nose exam: No nasal polyps present and No nasal discharge present Face and sinus: Yes sinuses nontender Mouth: oropharynx normal Throat: Yes posterior oropharynx normal Eyes General: appearance normal, both eyes and all related structures Neck Neck: Yes normal visual inspection, Yes no lymphadenopathy, Yes trachea midline and Yes no JVD Thyroid: Thyroid normal Chest Chest palpation & inspection: normal inspection of the chest, normal palpation of entire chest wall and no tenderness Resp Other: Percussion note resonant, breath sounds are equal on both sides slightly diminished over the basilar areas. No significant wheezes . Inspiratory crepitations are present over both bases. Cardio Palpation: normal PMI Rate: regular rate Rhythm: regular rhythm Heart sounds: no gallops and no murmurs GI Palpation (GI): Soft to palpation, nontender, No hepatosplenomegaly present and no masses Auscultation: normal bowel sounds Back/Spine/Pelvis Thoracic/Lumbar Spine: thoracic and lumbar spine normal to inspection and thoraco-lumbar ROM limited Skin General skin exam: no rashes or lesions noted Neuro General: patient oriented x3, No gait normal (Impaired gait due to, general muscular weakness) and no focal motor deficits Cranial nerves: Yes CN's II-XII intact bilaterally Extrem General: Yes normal to inspection, Yes no clubbing, cyanosis or edema and Yes no calf tenderness Psych Appearance: grossly normal and well kempt Speech and movement: Normal speech and movement present Assessment & Plan Assessment & Plan (1) Pulmonary fibrosis: Comment: CT SCANS OF HIS CHEST FROM 2013 HAVE SHOWN PULMONARY FIBROSIS. AND BASICALLY HAS REMAINED STABLE. DOES NOT NEED ANY BD. agents . ADVISED TO KEEP ON DOING DEEP BREATHING EXERCISES WITH INCENTIVE SPIROMETRY DEVICE , AT LEAST 3 TIMES A DAY Code(s): J84.10 - Pulmonary fibrosis, unspecified (2) Allergic rhinitis: Comment: HE HAS MILD INTERMITTENT ALLERGIC RHINITIS SYMPTOMS, ADVISED TO USE ZYRTEC 10 MG ONCE A DAY ON A P.R.N. BASIS, DOES NOT NEED TO USE ANY NASAL SPRAYS. Code(s): J30.9 - Allergic rhinitis, unspecified (3) Cough: Comment: USED TO BE MAINLY DUE TO MICRO ASPIRATIONS. BUT SINCE HIS SWALLOWING IS IMPROVED HE HAS VERY LITTLE COUGH. Code(s): R05 - Cough (4) Hypoxemia: Comment: SINCE HIS LAST ADMISSION 2 MONTHS AGO HE HAS BEEN USING OXYGEN OFF AND ON. HE DOES HAVE STATIONARY CONCENTRATOR WELL PORTABLE CYLINDER BUT NEVER USES THE PORTABLE UNIT. AT HOME HE USES O2 2 L/MINUTE FOR 1-2 HOURS P.R.N. IF O2 SAT IS BELOW 90%. I HAVE RECOMMENDED TO AND DISCUSSED WITH THE PATIENT AND HIS THAT , IT IS BETTER FOR HIM TO USE O2 2 L/MINUTE DURING SLEEP. Code(s): R09.02 - Hypoxemia Coding Level of Care Code Est Pt Level 3 (49341) Diagnoses Pulmonary fibrosis J84.10 Allergic rhinitis J30.9 Cough R05 Hypoxemia R09.02
== END 2022-09-17 13:38 | disposition home or self-care (01) ==
PROVIDERS: PCP Internal Medicine; Visit Provider Internal Medicine
DX: J84.10 Pulmonary fibrosis, unspecified (principal); J30.9 Allergic rhinitis, unspecified; R05.9 Cough, unspecified; R09.02 Hypoxemia
CPT/HCPCS: 99213

== ENCOUNTER → 2022-09-17 13:10 | Outpatient (BNVA) | payer MEDICARE, SELFPAY | PROVIDERS: PCP Internal Medicine; Visit Provider Internal Medicine | DX: J84.10 Pulmonary fibrosis, unspecified (principal); J30.9 Allergic rhinitis, unspecified; R05.9 Cough, unspecified; R09.02 Hypoxemia; Z99.81 Dependence on supplemental oxygen | CPT/HCPCS: 99212 ==

== ENCOUNTER 2022-10-17 15:55 | Outpatient (REF) | payer MEDICARE, SELFPAY ==
[2022-10-17 16:21] LABS: MANUAL DIFF FLAG NO
[2022-10-17 17:44] LABS: Basophils Percent Auto 0.3 % (0-2); Eosinophils Absolute Auto 0.4 X10*3/uL (0.0-0.4); Eosinophils Percent Auto 5.1 % (0-4); Hematocrit 43.6 % (42.0-52.0); Hemoglobin 14.4 g/dl (14.0-18.0); Imm Gran Abs Auto 0.02 X10*3/uL (0.00-0.03); Imm Gran Pct Auto 0.3 % (0.0-0.4); Lymphocytes Absolute Auto 1.4 X10*3/uL (1.2-4.9); Mean Corpuscular Hemoglobin 29.9 pg (27.0-33.0); Mean Corpuscular Volume 90.6 fL (80.0-98.0); Mean Platelet Volume 9.7 fL (9.4-12.4); Monocytes Absolute Auto 0.6 X10*3/uL (0.1-1.2); Monocytes Percent Auto 7.8 % (2-11); Neutrophils Absolute Auto 5.4 x10*3/uL (2.0-8.3); Neutrophils Percent Auto 68.5 % (45-73); Platelet Count 204 X10*3/uL (160-400); Red Blood Count 4.81 X10*6/uL (4.60-5.80); Red Cell Distribution Width 14.2 % (11.0-16.0); White Blood Count 7.9 X10*3/uL (4.8-10.8)
[2022-10-17 18:15] LABS: Alanine Aminotransferase 15 U/L (0-40); Albumin Level 3.7 g/dL (3.5-5.0); Alkaline Phosphatase 106 U/L (39-117); Anion Gap 13 (12-20); Aspartate Amino Transferase 21 U/L (5-37); Bilirubin Total 0.6 mg/dL (0.0-1.0); Blood Urea Nitrogen 11 mg/dL (9-16); Calcium 9.7 mg/dL (8.4-10.2); Carbon Dioxide 28 mmol/L (22-29); Chloride 101 mmol/L (96-108); Estimated Glomerular Filt Rate > 60; Glucose Random 99 mg/dL (60-115); Potassium 3.7 mmol/L (3.3-5.1); Sodium 138 mmol/L (135-145); Total Protein 7.7 g/dL (6.5-8.0)
[2022-10-17 18:34] LABS: Free T4 (Free Thyroxine) 1.08 ng/dL (0.71-1.85); Thyroid Stimulating Hormone 3.55 uIU/mL (0.32-4.0)
== END 2022-10-17 15:56 | disposition home or self-care (01) ==
LOC: HO.LAB 15:55
PROVIDERS: PCP Internal Medicine; Visit Provider Internal Medicine
DX: E03.9 Hypothyroidism, unspecified (principal); I10 Essential (primary) hypertension; I25.10 Atherosclerotic heart disease of native coronary artery without angina pectoris
CPT/HCPCS: 36415; 80053; 84439; 84443; 85025

== ENCOUNTER 2022-10-23 08:19 | Outpatient (REF) | payer MEDICARE, SELFPAY ==
--- NOTE | ~2022-10-23 | FL_ITS ---
EXAMINATION: XR FLUOROSCOPY BARIUM SWALLOW WITH AIR CLINICAL INFORMATION: Dysphasia. Patient with cortical basal degeneration. Concern for aspiration. COMPARISON: 06/22/2020 modified barium swallow. TECHNIQUE: Standard technique fluoroscopic air-contrast barium swallow was performed with thick and thin barium and effervescent granules. Numerous fluoroscopic spot images were obtained. FINDINGS: The examination was inherently limited due to the patient's neurological condition. The patient could not roll from side to side or position himself for optimal images. The patient could not lie flat or prone. With these inherent limitations, the best images possible were obtained. Supervisor Television Chassis Repair view demonstrates median sternotomy wires, mitral annular calcification, an aortic valve replacement, and numerous surgical clips in the mediastinum. There was significant calcification of the aorta. Images taken during swallow of thick barium demonstrated transient laryngeal penetration to the region of the false cords, followed by a small amount of gross aspiration to the level of the true cords. This was not sensed well by the patient with no cough reflex. No progression in the subglottic trachea was noted. No definite mass is seen in the hypopharynx. There was persistent vallecular and piriform sinus pooling, and moderate cricopharyngeal achalasia. Soft palate elevation was slightly delayed however no nasopharyngeal reflux. The epiglottis appeared to move normally. The esophagus demonstrates marked presbyesophagus with nonpropulsive tertiary contractions. It is otherwise normal in caliber and course. No mucosal abnormality, stricture, or mass. There is a small hiatus hernia, type I. There was episodic mild gastroesophageal reflux the level of the roger. Limited images of the stomach demonstrated no abnormality. There is insufficient coating due to mobility limitations. Limited views of the duodenal sweep and proximal small bowel appear normal. FLUOROSCOPY TIME: 3.6 minutes 49 images obtained. DOSE AREA PRODUCT: 28.831 uGy-m2 (microgray-meter squared) FL/FL upper GI w air w Ba Swallow IMPRESSION: Exam limitations as discussed above due to patient condition. 1. Episodic laryngeal penetration and thick barium aspiration to the level of the cords. Grossly, no subglottic tracheal aspiration. 2. Jbzf-sw-yqytidli cricopharyngeal achalasia. 3. Consistent vallecular and piriform sinus pooling with residuals. 4. 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 5. Small type I hiatus hernia. 6. Episodic gastroesophageal reflux to the level of the roger.
== END 2022-10-23 08:20 | disposition home or self-care (01) ==
LOC: HO.XRAY 08:19
PROVIDERS: PCP Internal Medicine; Visit Provider Internal Medicine
DX: R13.10 Dysphagia, unspecified (principal)
CPT/HCPCS: 74246

== ENCOUNTER → 2022-10-23 08:20 | Outpatient (BNV) | payer MEDICARE, SELFPAY | PROVIDERS: PCP Internal Medicine; Visit Provider Radiology Diagnostic Radiology | DX: R13.10 Dysphagia, unspecified (principal) | CPT/HCPCS: 74246 ==

== ENCOUNTER → 2022-12-13 13:21 | Outpatient (REF) | payer MEDICARE, SELFPAY ==
--- NOTE | 2022-12-13 13:25 | HM_ITS ---
Conclusion: 1. Patient was monitored for total period of 1 day and 12 hours 2. Baseline was normal sinus rhythm with average heart rate of 73 beats per minute with first-degree AV block noted 3. Frequent PACs noted with total burden of 38% with 7 short runs of SVT, longest lasting 6 beats and the fastest 150 beats per minute 4. No significant pauses noted 5. No patient reported events MTDD
== END ==
LOC: HO.CARD 13:21
PROVIDERS: PCP Internal Medicine; Visit Provider Internal Medicine
DX: I48.91 Unspecified atrial fibrillation (principal)
CPT/HCPCS: 93242

== ENCOUNTER → 2022-12-13 13:25 | Outpatient (BNV) | payer MEDICARE, SELFPAY | PROVIDERS: PCP Internal Medicine; Visit Provider Internal Medicine Cardiovascular Disease | DX: I49.1 Atrial premature depolarization (principal); I44.0 Atrioventricular block, first degree | CPT/HCPCS: 93227 ==

== ENCOUNTER 2023-01-27 12:58 | Outpatient (AMB) | payer MEDICARE, SELFPAY ==
--- NOTE | 2023-01-27 13:08 | A.OFFVIS_ITS ---
Intake Vital Signs 01/27/23 13:11 Height 6 ft BP 120/62 Blood Pressure Location Lt brachial Position Sitting Pulse 58 Pulse Source Pulse Oximeter Pulse Oximetry (%) 94 Oxygen Delivery Method Room Air Intake Visit Reasons: COPD Intake Note: pt is here for follow up and states he has been dropping with O2 and he is also in A-fib, cough has not changed too much mostly in bed, he tries to get the phelgm out, he raises the head and uses incentive taya, and using O2 all the time at home. Rubber Tester Required: No Allergies meperidine [From Demerol] Adverse Reaction (Unknown, Verified 01/27/23 13:20) Unknown morphine Adverse Reaction (Unknown, Verified 01/27/23 13:20) Unknown pregabalin [From Lyrica CR] Adverse Reaction (Unknown, Verified 01/27/23 13:20) Unknown Medication List - Last Reconciled 01/27/23 by Royer Ross MD apixaban (Eliquis) 5 mg PO BID ascorbic acid (vitamin C) 500 mg PO DAILY atorvastatin (Lipitor) 80 mg PO BEDTIME carvedilol 3.125 mg PO .qhs cetirizine (Zyrtec) 10 mg PO DAILY PRN cholecalciferol (vitamin D3) 50 mcg PO DAILY clobetasol 0.05% topical DAILY docusate sodium 100 mg PO BID ketoconazole 2% 1 appl topical levothyroxine (Levoxyl) 88 mcg PO DAILY vitamins A,C,O-waqk-ebtxrv 2,148 mcg-113 mg-45 mg-17.4mg (PreserVision AREDS) 1 tab PO BID Do you need a note to return to daycare/school/sports/work: No HPI COPD HPI Details 82 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 HE HAS HAD ISSUE OF PULMONARY. ASPIRATIONS IN THE PAST BUT NOT RECENTLY, BECAUSE HE HAS BEEN ON MODIFIED THICKENED LIQUID TYPE OF DIET. MODIFIED BARIUM SWALLOW AT THE END OF SEPTEMBER WAS DONE WHICH SHOWED SOME RETENTION BUT NO ASPIRATIONS. HE HAS INTERMITTENT COUGH , SOMETIME WAKES UP WITH BOUTS OF COUGH, THE COUGH IMPROVED BY RAISING THE HAD SIDE OF THE BED AND BY USING INCENTIVE SPIROMETER. HE USES O2 2 L/MINUTE THROUGHOUT THE NIGHT, . AND P.R.N. DURING THE DAYTIME NOW HE IS USING OXYGEN MORE OFTEN DURING THE DAYTIME, HIS O2 SATS DROP BELOW 90%. [facility] Medical History Hypoxemia Corticobasal degeneration Cough Pneumonitis Pulmonary fibrosis Allergic rhinitis Hypothyroid Hyperlipidemia Hypertension Surgical History H/O aortic valve repair Hx of CABG Social History Household Members: Spouse Patient Tobacco Use Status: Never used Tobacco e-Cigarette/Vaping Use: Never Used Advance Directives Date on File: 04/09/20 service: Yes Current occupational status: retired Review of Systems Const All systems reviewed & are unremarkable except as noted in HPI and below Reports weakness (General muscular weakness) Eyes Reports no additional complaints ENT Reports no additional complaints Card Denies chest pain, Denies irregular heart rhythm and Denies leg edema Resp Reports as per HPI GI Reports no additional complaints Reports no additional complaints Musc Reports abnormal gait (Walking is slow and he does need walker to stabilize his gait) Skin/Breast Reports system reviewed and no additional complaints, except as documented Neuro Reports abnormal gait (Walking is slow and he does need walker to stabilize his gait) and Reports weakness (General muscular weakness) Psych Reports no additional complaints Physical Exam Vital Signs: Last Vital Signs Pulse 58 01/27/23 13:11 BP 120/62 01/27/23 13:11 Pulse Ox 94 01/27/23 13:11 Oxygen Delivery Method Room Air 01/27/23 13:11 Const General: comfortable, no acute distress, alert and awake Orientation/consciousness: patient oriented x3 HEENT Head: Yes normal to inspection General nose exam: No nasal polyps present and No nasal discharge present Face and sinus: Yes sinuses nontender Mouth: oropharynx normal Throat: Yes posterior oropharynx normal Eyes General: appearance normal, both eyes and all related structures Neck Neck: Yes normal visual inspection, Yes no lymphadenopathy, Yes trachea midline and Yes no JVD Thyroid: Thyroid normal Chest Chest palpation & inspection: normal inspection of the chest, normal palpation of entire chest wall and no tenderness Resp Other: Percussion note resonant, breath sounds are equal on both sides slightly diminished over the basilar areas. No significant wheezes . Inspiratory crepitations are present over both bases. Cardio Palpation: normal PMI Rate: regular rate Rhythm: regular rhythm Heart sounds: no gallops and no murmurs GI Palpation (GI): Soft to palpation, nontender, No hepatosplenomegaly present and no masses Auscultation: normal bowel sounds Back/Spine/Pelvis Thoracic/Lumbar Spine: thoracic and lumbar spine normal to inspection and thoraco-lumbar ROM limited Skin General skin exam: no rashes or lesions noted Neuro General: patient oriented x3, No gait normal (Impaired gait due to, general muscular weakness) and no focal motor deficits Cranial nerves: Yes CN's II-XII intact bilaterally Extrem General: Yes normal to inspection, Yes no clubbing, cyanosis or edema and Yes no calf tenderness Psych Appearance: grossly normal and well kempt Speech and movement: Normal speech and movement present Results Reviewed Results Reviewed: BARIUM SWALLOW 10/23/2022 IMPRESSION: Exam limitations as discussed above due to patient condition. 1. Episodic laryngeal penetration and thick barium aspiration to the level of the cords. Grossly, no subglottic tracheal aspiration. 2. Xtss-me-cgaaowsr cricopharyngeal achalasia. 3. Consistent vallecular and piriform sinus pooling with residuals. 4. 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 5. Small type I hiatus hernia. 6. Episodic gastroesophageal reflux to the level of the roger. Assessment & Plan Assessment & Plan (1) Pulmonary fibrosis: Comment: CT SCANS OF HIS CHEST FROM 2014 HAVE SHOWN PULMONARY FIBROSIS. AND BASICALLY HAS REMAINED STABLE. DOES NOT NEED ANY BD. agents . Code(s): J84.10 - Pulmonary fibrosis, unspecified Plan: ADVISED TO KEEP ON DOING DEEP BREATHING EXERCISES WITH INCENTIVE SPIROMETRY DEVICE , AT LEAST 3 TIMES A DAY (2) Allergic rhinitis: Comment: HE HAS MILD INTERMITTENT ALLERGIC RHINITIS SYMPTOMS, ADVISED TO USE ZYRTEC 10 MG ONCE A DAY ON A P.R.N. BASIS, DOES NOT NEED TO USE ANY NASAL SPRAYS. Code(s): J30.9 - Allergic rhinitis, unspecified Plan: ABOVE (3) Cough: Comment: USED TO BE MAINLY DUE TO MICRO ASPIRATIONS. BUT SINCE HIS SWALLOWING IS IMPROVED HE HAS VERY LITTLE COUGH. SOMEWHAT INCREASED COUGH AT NIGHT IN THE LAST COUPLE MONTHS, HAS HARD TIME TO BRING UP THE MUCUS, BUT SOON HE USES INCENTIVE SPIROMETER IT COMES UP EASILY. Code(s): R05 - Cough Plan: ADVISED TO USE INCENTIVE SPIROMETRY EVERY FEW HOURS NEEDED. ALSO PRESCRIBED ACAPELA VALVE ( VIBRATOR ) AND ADVISED TO USE IT EVERY FEW HOURS AND ALSO P.R.N. WHEN HE HAS COUGH. (4) Hypoxemia: Comment: HAS NOCTURNAL HYPOXEMIA WELL INTERMITTENT DROP IN THE O2 SAT DURING THE DAYTIME. Code(s): R09.02 - Hypoxemia Plan: ADVISED TO USE O2 2 L/MINUTE DURING THE NIGHT. AND ALSO P.R.N. DURING DAYTIME. Medications: Changed From carvedilol must administer with a meal/food 3.125 mg (1/2 x 6.25 mg) PO BID 15 tabs 0RF To carvedilol must administer with a meal/food 3.125 mg PO .hs Coding Level of Care Code Est Pt Level 3 (62478) Diagnoses Pulmonary fibrosis J84.10 Allergic rhinitis J30.9 Cough R05 Hypoxemia R09.02
[2023-01-27 13:11] VITALS: BP 120/62; PULSE 58; O2SAT 94
== END 2023-01-27 13:35 | disposition home or self-care (01) ==
PROVIDERS: PCP Internal Medicine; Visit Provider Internal Medicine
DX: J84.10 Pulmonary fibrosis, unspecified (principal); J30.9 Allergic rhinitis, unspecified; R05.9 Cough, unspecified; R09.02 Hypoxemia
CPT/HCPCS: 99213

== ENCOUNTER → 2023-01-27 12:58 | Outpatient (BNVA) | payer MEDICARE, SELFPAY | PROVIDERS: PCP Internal Medicine; Visit Provider Internal Medicine | DX: J84.10 Pulmonary fibrosis, unspecified (principal); J30.9 Allergic rhinitis, unspecified; G31.85 Corticobasal degeneration; R05.9 Cough, unspecified; R09.02 Hypoxemia; Z99.81 Dependence on supplemental oxygen | CPT/HCPCS: 99212 ==

== ENCOUNTER 2023-02-22 11:20 | Inpatient (IN) | payer OTHER, MEDICARE, SELFPAY ==
--- NOTE | 2023-02-22 | ECG_ITS ---
Test Reason : RYTHM CHANGES Blood Pressure : / mmHG Vent. Rate : 090 BPM Atrial Rate : 000 BPM P-R Int : 000 ms QRS Dur : 136 ms QT Int : 398 ms P-R-T Axes : 000 022 198 degrees QTc Int : 486 ms Rhythm shows atrial flutter with variable block Left bundle branch block Abnormal ECG When compared with ECG of 22-FEB-2023 11:42, Vent. rate has decreased BY 48 BPM Referred By: Chelsey Bray Electronically Signed By:JOSIAH MAGAÑA
--- NOTE | ~2023-02-22 | XR_ITS ---
EXAMINATION: PORTABLE CHEST 1 VIEW CLINICAL INFORMATION: weakness. COMPARISON: 07/14/2022. TECHNIQUE: Portable frontal view of the chest was obtained. FINDINGS: The lungs are hypoexpanded. There is hazy bilateral airspace disease with central vascular prominence and indistinctness to the vessels. Blunting of the right costophrenic angle could represent an tiny layering right effusion as well. These changes are likely related to the patient's known underlying interstitial lung disease better seen on the 04/09/2020 CT scan but these have progressed since that time Lungs are hypoexpanded but the cardiac silhouette remains enlarged with a tortuous calcified aorta. The patient is status post sternotomy, CABG, and aortic valve replacement. No acute bony abnormality. XR/XR chest 1V IMPRESSION: Hypoexpanded with central vascular prominence and indistinctness to the vessels suggesting mild pulmonary edema superimposed on extensive chronic interstitial changes. Clinical correlation would be needed. Infectious etiology would be considered less likely.
--- NOTE | 2023-02-22 11:25 | ECG_ITS ---
Test Reason : TACHYCARDIA Blood Pressure : / mmHG Vent. Rate : 138 BPM Atrial Rate : 000 BPM P-R Int : 000 ms QRS Dur : 126 ms QT Int : 328 ms P-R-T Axes : 000 -01 177 degrees QTc Int : 496 ms suspect Atrial flutter with rapid rate Left bundle branch block Abnormal ECG When compared with ECG of 12-JUL-2022 00:10, Vent. rate has increased BY 52 BPM Referred By: Generic ED Physician Electronically Signed By:JOSIAH MAGAÑA
[2023-02-22 11:36] VITALS: BP 101/78; BP 104/78; PULSE 138; PULSE 139; RESP 16; TEMP 36.8; O2SAT 93; BMI 25.1
[2023-02-22] MEDS: Metoprolol Tartrate 5 MG/5 ML VIAL 2.5 MG IVPUSH (12:15)
[2023-02-22] MEDS: 0.9 % Sodium Chloride 500 ML IV (12:16)
--- NOTE | 2023-02-22 12:18 | PC.NURSE ---
patient a&ox3, child monitor sinus tach- pt medicated per order, ivf hung per order, call marie within reach, will continue to monitor
--- NOTE | 2023-02-22 12:20 | ED_ITS ---
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 He himself has no complaints. notes only new recent change was day of several loose stools around rancho but since then seems back to his current baseline. He took his carvedilol this AM MD complaint: elevated HR Onset (ago): day(s) (sometime today) Location: chest Radiation: non-radiation Severity: mild Relieving factors: none Exacerbating factors: none Associated symptoms: denies other symptoms Treatments prior to arrival: none Related Data Home Medications Medication Instructions Recorded Confirmed ascorbic acid (vitamin C) 500 mg 500 mg PO DAILY 04/19/20 01/27/23 capsule atorvastatin 80 mg tablet (Lipitor) 80 mg PO BEDTIME 04/19/20 01/27/23 cetirizine 10 mg tablet (Zyrtec) 10 mg PO DAILY PRN Allergy Symptoms 04/19/20 01/27/23 cholecalciferol (vitamin D3) 50 50 mcg PO DAILY 04/19/20 01/27/23 mcg (2,000 unit) capsule docusate sodium 100 mg capsule 100 mg PO BID 04/19/20 01/27/23 vitamins A,C,F-uktr-xzvtii 2,148 1 tab PO BID 04/19/20 01/27/23 mcg-113 mg-45 mg-17.4 mg tablet (PreserVision AREDS) levothyroxine 88 mcg tablet 88 mcg PO DAILY@0600 07/12/22 01/27/23 (Levoxyl) clobetasol 0.05 % topical cream topical DAILY 01/27/23 01/27/23 ketoconazole 2 % topical cream 1 appl topical 01/27/23 01/27/23 carvedilol 3.125 mg tablet 3.125 mg PO BID 02/22/23 Previous Rx's Medication Instructions Recorded apixaban 5 mg tablet (Eliquis) 5 mg PO BID #60 tabs 07/14/22 Allergies Allergy/AdvReac Type Severity Reaction Status Date / Time meperidine [From Demerol] AdvReac Unknown Unknown Verified 02/22/23 11:35 morphine AdvReac Unknown Unknown Verified 02/22/23 11:35 pregabalin [From Lyrica CR] AdvReac Unknown Unknown Verified 02/22/23 11:35 Review of Systems 2 Review of Systems: Constitutional : No Fever, No Chills, pos Fatigue, pos anorexia ENT/Mouth : No sore throat, No Rhinorrhea Eyes: No Eye Pain, No Swelling, No Redness Cardiovascular : No Chest Pain, No SOB, No Dyspnea on Exertion Respiratory : No Cough, No Sputum Gastrointestinal : No Nausea, No Vomiting, No Diarrhea, No abdominal Pain Genitourinary : No Dysuria, No Urinary Frequency, No Hematuria, Musculoskeletal : No joint pain, No Myalgias, No Joint Swelling Skin : No Skin Lesions, No rash Neuro : pos Weakness, No Numbness, No Dizziness, positive Headache Psych : No Anxiety/Panic, No Depression All other systems reviewed and are negative [facility] Past Medical History Attestation statement: The following information was validated with the patient. Source: old records reviewed Medical History Afib Mixed basal-squamous cell carcinoma Arthritis Cataract Hypoxemia Corticobasal degeneration Cough Pneumonitis Pulmonary fibrosis Allergic rhinitis Hypothyroid Hyperlipidemia Hypertension Surgical History H/O aortic valve repair Hx of CABG Social History Social History Household Members: Spouse Patient Tobacco Use Status: Never used Tobacco Smoked in Last 30 Days: No e-Cigarette/Vaping Use: Never Used Use of substances other than those prescribed or required for medical reasons: No Advance Directives: Yes Advance Directives on File: Yes Advance Directives Date on File: 04/09/20 service: Yes Current occupational status: retired Physical Exam ED Vital Signs: Vital Signs - 24 hr 02/22/23 11:36 02/22/23 14:17 Temperature 98.3 F Pulse Rate 138 H 135 H Respiratory Rate 16 20 Blood Pressure 101/78 98/71 Pulse Oximetry 93 95 Oxygen Delivery Method Nasal Cannula Nasal Cannula Oxygen Flow Rate 2 BMI result Body Mass Index 25.1 Appearance: Alert. Oriented X3. No acute distress. Eyes: Pupils equal, round and reactive to light. ENT: Pharynx dry MM Neck: Normal inspection. Neck supple. CVS: tachycardic and regular heart rate and rhythm. Pulses normal. Respiratory: No respiratory distress. Breath sounds normal. Abdomen: Soft and non-tender. Skin: Skin warm and dry. Normal skin color. Normal skin turgor. Extremities: No lower extremity edema. No calf ttp Neuro: Oriented X 3. diffusely weak and atrophied muscles in arms and legs Course Course Course Narrative: no response to lopressor cardizem ordered gtt Reevaluation(s) Reevaluation #1: at this time likely flutter and hx of CHF no response to dilt will add on digoxin after discussion with Nelson, continue on dilt gtt at this time Medications Administered Generic Name Dose Route Start Last Admin Trade Name Freq PRN Reason Stop Dose Admin Diltiazem HCl 125 mg/ Sodium 125 mls @ 0 mls/hr 02/22/23 12:45 02/22/23 16:10 Chloride IVCONT 15 mg/hr .Q0M CAIN 15 mls/hr Titration Protocol Per Protocol Sodium Chloride 3 ml 02/22/23 16:00 02/22/23 16:12 0.9 % Sodium Chloride Flush 3 Ml Syringe IVFLUSH Not Given QSHIFT CAIN Discontinued Medications Generic Name Dose Route Start Last Admin Trade Name Freq PRN Reason Stop Dose Admin Carvedilol 3.125 mg 02/22/23 15:57 02/22/23 16:17 Carvedilol 3.125 Mg Tablet PO 02/22/23 15:58 3.125 mg ONCE ONE Administration Protocol Digoxin 0.25 mg 02/22/23 14:15 02/22/23 14:27 Digoxin 0.5 Mg/2 Ml Ampul IVPUSH 02/22/23 14:16 0.25 mg ONCE ONE Administration Sodium Chloride 500 mls @ 500 mls/hr 02/22/23 12:00 02/22/23 13:16 Ns IV 02/22/23 12:59 Infused .Q1H CAIN Infusion Metoprolol Tartrate 2.5 mg 02/22/23 11:59 02/22/23 12:15 Metoprolol Tartrate 5 Mg/5 Ml Vial IVPUSH 02/22/23 12:00 2.5 mg ONCE ONE Administration Medical Decision Making Medical Decision Making [facility] Narrative: 82 yo male with PMH of corticobasilar degeneration, PAF on carvedilol, eliquis held for the last 3 doses given rectal bleeding and epistaxis, pneumonitis, pulm fibrosis, CHF, weight loss, poor PO intake, dysphagia, chronic O2 use here with asymptomatic HR in 140s had had resolved diarrhea episode around rancho. He denies CP/SOB, feeling his HR. He has no pain. He has no v/d, fevers or cough. At this time will try low dose lopressor, IVF, CXR, basic labs and observe in the ED. He took his carvedilol this AM. Differential Diagnosis Differential Diagnoses: The differential diagnosis associated with the presentation includes afib, dehydration, anemia, lyte abnormality Admission/Observation Consideration of admission/observation: Escalation of care including admission/observation considered will admit for aflutter rate control Consult Healthcare Provider Management of the patient was discussed with: Hospitalist (will admit) and [employer] (cardiology ) Lab Data [facility] Lab Attestation statement: I reviewed the patient's lab results. 02/22/23 12:27 02/22/23 12:27 Labs: Lab Results 02/22/23 Range/Units 12:27 WBC 9.3 (4.8-10.8) X10*3/uL RBC 4.82 (4.60-5.80) X10*6/uL Hgb 14.4 (14.0-18.0) g/dl Hct 43.0 (42.0-52.0) % MCV 89.2 (80.0-98.0) fL MCH 29.9 (27.0-33.0) pg MCHC 33.5 (31.0-36.0) g/dl RDW 14.7 (11.0-16.0) % Plt Count 193 (160-400) X10*3/uL MPV 9.5 (9.4-12.4) fL Immature Gran % (Auto) 0.2 (0.0-0.4) % Neut % (Auto) 75.4 H (45-73) % Lymph % (Auto) 14.2 L (20-40) % [place] % (Auto) 5.9 (2-11) % Eos % (Auto) 4.0 (0-4) % Baso % (Auto) 0.3 (0-2) % Lymph # (Auto) 1.3 (1.2-4.9) X10*3/uL [place] # (Auto) 0.6 (0.1-1.2) X10*3/uL Eos # (Auto) 0.4 (0.0-0.4) X10*3/uL Baso # (Auto) 0.0 (0.0-0.2) X10*3/uL Abs Immat Gran (auto) 0.02 (0.00-0.03) X10*3/uL Absolute Neuts (auto) 7.0 (2.0-8.3) x10*3/uL Absolute Nucleated RBC 0.000 (0.0-0.012) X10*3/uL Nucleated RBC % (auto) 0.0 (0.0-0.2) /100WBC PT 16.2 H (11.1-13.3) SEC INR 1.3 H (0.9-1.1) Sodium 136 (135-145) mmol/L Potassium 3.9 (3.3-5.1) mmol/L Chloride 104 (96-108) mmol/L Carbon Dioxide 23 (22-29) mmol/L Anion Gap 13 (12-20) BUN 9 (9-16) mg/dL Creatinine 0.59 (0.5-1.4) mg/dL Estim Creat Clear Calc 104.1 Estimated GFR > 60 Random Glucose 110 (60-115) mg/dL Lactic Acid 1.3 (0.5-2.0) mmol/L Calcium 9.1 D (8.4-10.2) mg/dL Magnesium 2.0 (1.6-2.6) mg/dL Total Bilirubin 0.7 (0.0-1.0) mg/dL Direct Bilirubin 0.3 (0.0-0.5) mg/dL AST 21 (5-37) U/L ALT 13 (0-40) U/L Alkaline Phosphatase 95 (39-117) U/L Troponin I High Sens 32.4 D (<3.5-35.0) ng/L B-Natriuretic Peptide 291 H (<100) pg/mL Total Protein 7.1 (6.5-8.0) g/dL Albumin 3.3 L (3.5-5.0) g/dL Lipase 31 (8-78) U/L TSH 4.07 H (0.32-4.0) uIU/mL Free T4 1.20 (0.71-1.85) ng/dL Influenza Type A (PCR) NEGATIVE (Negative) Influenza Type B (PCR) NEGATIVE (Negative) RSV RNA Qual (PCR) NEGATIVE (Negative) SARS-CoV-2 RNA (RT-PCR) NEGATIVE (Negative) Independent Interpretation I performed an independent interpretation of an: EKG and Plain X-Ray (mild edema) Interpretation: Rate: 138 Rhythm: regular wide complex [place]: left LBBB ST T wave : no ASHLEY, neg sgarbossa, inverted t waves I and aVL qTC: 496 prior studies: prior LBBB The study has been interpreted contemporaneously by me. . Radiology Impression Discussion of test interpretation with radiology: I have reviewed the radiologist's reading. Independent Historian Clinical information obtained from an independent historian. History obtained from or confirmed by: Spouse External Record Review External record reviewed: Inpatient record Critical Care Time Critical Care Time Critical Care Time: Yes Total Critical Care Time: 45 Attestation: repeat IV medications to control flutter, discussion with cardiology I attest to this time spent taking care of the patient Discharge Plan Discharge Clinical Impression: Atrial flutter Qualifiers: Atrial flutter type: unspecified Qualified Code(s): I48.92 - Unspecified atrial flutter Patient Disposition: Admitted As Inpatient
[2023-02-22 12:31] LABS: MANUAL DIFF FLAG NO
[2023-02-22 12:36] LABS: Basophils Percent Auto 0.3 % (0-2); Eosinophils Absolute Auto 0.4 X10*3/uL (0.0-0.4); Hemoglobin 14.4 g/dl (14.0-18.0); Imm Gran Abs Auto 0.02 X10*3/uL (0.00-0.03); Imm Gran Pct Auto 0.2 % (0.0-0.4); Lymphocytes Absolute Auto 1.3 X10*3/uL (1.2-4.9); Lymphocytes Percent Auto 14.2 % (20-40); Mean Corpuscular HGB Conc 33.5 g/dl (31.0-36.0); Mean Corpuscular Hemoglobin 29.9 pg (27.0-33.0); Mean Corpuscular Volume 89.2 fL (80.0-98.0); Mean Platelet Volume 9.5 fL (9.4-12.4); Monocytes Absolute Auto 0.6 X10*3/uL (0.1-1.2); Monocytes Percent Auto 5.9 % (2-11); Neutrophils Percent Auto 75.4 % (45-73); Platelet Count 193 X10*3/uL (160-400); Red Blood Count 4.82 X10*6/uL (4.60-5.80); Red Cell Distribution Width 14.7 % (11.0-16.0); White Blood Count 9.3 X10*3/uL (4.8-10.8)
[2023-02-22 12:38] LABS: INTERNATIONAL NORM RATIO 1.3 (0.9-1.1); Prothrombin Time 16.2 SEC (11.1-13.3)
[2023-02-22 12:46] LABS: Lactic Acid 1.3 mmol/L (0.5-2.0)
[2023-02-22 12:57] LABS: B Type Natriuretic Peptide 291 pg/mL (<100)
[2023-02-22 12:58] LABS: Alanine Aminotransferase 13 U/L (0-40); Albumin Level 3.3 g/dL (3.5-5.0); Alkaline Phosphatase 95 U/L (39-117); Anion Gap 13 (12-20); Aspartate Amino Transferase 21 U/L (5-37); Bilirubin Direct 0.3 mg/dL (0.0-0.5); Bilirubin Total 0.7 mg/dL (0.0-1.0); Blood Urea Nitrogen 9 mg/dL (9-16); Calcium 9.1 mg/dL (8.4-10.2); Carbon Dioxide 23 mmol/L (22-29); Chloride 104 mmol/L (96-108); Creatinine Clr Calc Pharmacy 104.1; Estimated Glomerular Filt Rate > 60; Glucose Random 110 mg/dL (60-115); Lipase 31 U/L (8-78); Potassium 3.9 mmol/L (3.3-5.1); Sodium 136 mmol/L (135-145); Total Protein 7.1 g/dL (6.5-8.0)
[2023-02-22 12:59] LABS: Troponin-I High Sensitivity 32.4 ng/L (<3.5-35.0)
[2023-02-22] MEDS: dilTIAZem HCL 125 MG in 0.9 % Sodium Chloride 100 ML 10 MG IVCONT (13:09)
--- NOTE | 2023-02-22 13:12 | PC.NURSE ---
cardizem drip started per order.
[2023-02-22 13:13] LABS: TSH reflex Free T4 4.07 uIU/mL (0.32-4.0)
[2023-02-22 13:39] LABS: Influenza A PCR NEGATIVE (Negative); Influenza B PCR NEGATIVE (Negative); Resp Syncy Virus RNA Qual PCR NEGATIVE (Negative); SARS COV2 PCR INHOUSE NEGATIVE (Negative)
[2023-02-22 14:17] VITALS: BP 98/71; PULSE 135; RESP 20; O2SAT 95
--- NOTE | 2023-02-22 14:18 | PC.NURSE ---
per request of dr. diggs, cardizem drip decreased to 10mg/h
[2023-02-22] MEDS: Digoxin 0.5 MG/2 ML AMPUL 0.25 MG IVPUSH (14:27)
--- NOTE | 2023-02-22 14:28 | PC.NURSE ---
pt medicated with dig per order, pt front desk monitor currently 133, family at bedside, will continue to monitor
[2023-02-22 15:54] VITALS: BP 106/61; PULSE 137; RESP 22; O2SAT 93
--- NOTE | 2023-02-22 15:58 | P.HPHOSP_ITS ---
History of Present Illness Date of Service: 02/22/23 Chief Complaint: Palpitations An 82 years old male with PMH of Cortical basal degeneration, Pul fibrosis, AVR, CAD s\p double Bypass, PAF on eliquis among others who presents to the hospital with rapid heart rate of 140s. He has aparent weakness in his right side and in his speech and facial expressions. The patient had a GI illness after Mika with vomiting and diarrhea. his monitor his vitals at home as he is on 2L O2. This morning she noticed that his heart rate is rapid in 140s with no complaints. The patient denies No chest pain, palpitations, SOB, nausea, vomiting, diarrhea or urinary symptoms at this point. His Carvedilol dosage was decreased more than a month ago. In ED found to be in Afib rvr, started on Cardizem drip. Blood work also consistent with elevated BNP. CXR showing fluid overload. Review of Systems 2 Review of Systems: No fever, chills or weakness No chest pain, palpitation No shortness of breath or coughing No abdominal pain, nausea or vomiting No urinary symptoms No any rash or wounds [facility] Medical History Afib Mixed basal-squamous cell carcinoma Arthritis Cataract Hypoxemia Corticobasal degeneration Cough Pneumonitis Pulmonary fibrosis Allergic rhinitis Hypothyroid Hyperlipidemia Hypertension Surgical History H/O aortic valve repair Hx of CABG Social History Household Members: Spouse Housing: Condominium Do you presently have visiting nurse or other home services: Yes (Nurse, PT, OT, Home health aide) Patient Tobacco Use Status: Never used Tobacco Smoked in Last 30 Days: No e-Cigarette/Vaping Use: Never Used Use of substances other than those prescribed or required for medical reasons: No Have you been hit, kicked, punched, or otherwise hurt by someone within the past year? If so, by whom?: No Do you feel safe in your current relationship?: Yes Is there a partner from a previous relationship who is making you feel unsafe now?: No Are you made to feel afraid or neglected: No [employer]: [facility] Advance Directives: Yes Advance Directives on File: Yes Advance Directives Date on File: 04/09/20 Do you have thoughts of harming others: None Do you have a plan to hurt others: No Plan Recently lost weight without trying: No How much weight loss: 24-33 pounds Eating poorly because of decreased appetite: Yes Nutrition screen score: 4 Nutrition Risks: Difficulty swallowing and On aspiration precautions Poor oral hygiene: No service: Yes Current occupational status: retired Meds Allergies Allergy/AdvReac Type Severity Reaction Status Date / Time meperidine [From Demerol] AdvReac Unknown Unknown Verified 02/22/23 11:35 morphine AdvReac Unknown Unknown Verified 02/22/23 11:35 pregabalin [From Lyrica CR] AdvReac Unknown Unknown Verified 02/22/23 11:35 Active Medications: Current Medications Acetaminophen (Acetaminophen 325 Mg Tablet) 650 mg PO Q6H PRN PRN Reason: Pain, Mild (Pain Scale 1-3) Carvedilol (Carvedilol 3.125 Mg Tablet) 3.125 mg PO ONCE ONE; Protocol Stop: 02/22/23 15:58 Diltiazem HCl 125 mg/ Sodium (Chloride) 125 mls @ 0 mls/hr IVCONT .Q0M CAIN; Protocol Last Titration: 02/22/23 14:17 Dose: 10 mg/hr, 10 mls/hr Ondansetron HCl (Ondansetron Hcl 4 Mg/2 Ml Vial) 4 mg IVPUSH Q8H PRN PRN Reason: Nausea and Vomiting Sodium Chloride (0.9 % Sodium Chloride Flush 3 Ml Syringe) 3 ml IVFLUSH QSHIFT [facility] Home Medications Medication Instructions Recorded Confirmed Last Taken Type ascorbic acid (vitamin C) 500 mg 500 mg PO DAILY 04/19/20 02/22/23 02/21/23 History capsule atorvastatin 80 mg tablet (Lipitor) 80 mg PO BEDTIME 04/19/20 02/22/23 02/21/23 History cetirizine 10 mg tablet (Zyrtec) 10 mg PO BEDTIME Allergy Symptoms 04/19/20 02/22/23 02/21/23 History cholecalciferol (vitamin D3) 50 50 mcg PO DAILY 04/19/20 02/22/23 02/21/23 History mcg (2,000 unit) capsule docusate sodium 100 mg capsule 100 mg PO DAILY 04/19/20 02/22/23 02/21/23 History vitamins A,C,B-hgaq-dckbqt 2,148 1 tab PO BID 04/19/20 02/22/23 02/21/23 History mcg-113 mg-45 mg-17.4 mg tablet (PreserVision AREDS) levothyroxine 88 mcg tablet 88 mcg PO DAILY@0600 07/12/22 02/22/23 02/22/23 06:00 History (Levoxyl) clobetasol 0.05 % topical cream 1 appl topical BID PRN psoriasis 01/27/23 02/22/23 Unknown History ketoconazole 2 % topical cream 1 appl topical BID PRN Rash 01/27/23 02/22/23 Unknown History carvedilol 3.125 mg tablet 3.125 mg PO BEDTIME 02/22/23 02/22/23 02/21/23 History zinc acetate 50 mg (zinc) capsule 50 mg PO DAILY 02/22/23 02/22/23 02/21/23 History Physical Exam 2 Vital Signs and Narrative: Vital Signs: Last Vital Signs Temp 98.3 F 02/22/23 11:36 Pulse 135 H 02/22/23 14:17 Resp 20 02/22/23 14:17 BP 98/71 02/22/23 14:17 Pulse Ox 95 02/22/23 14:17 O2 Del Method Nasal Cannula 02/22/23 14:17 O2 Flow Rate 2 02/22/23 14:17 Oxygen Flow Rate 2 02/22/23 11:36 BMI result Body Mass Index 25.1 Const: Other: Constitutional : Awake, interactive, not in distress Neck : Normal inspection, Supple Cardiovascular : irregular irregular, no JVP, no lower extremity edema Respiratory : fair bilateral air entry, basal fine crackles, no wheezes or rhonchi Gastrointestinal: soft, lax, Normal bowel sounds, Non tender Skin : Warm, Dry Neurological : Alert & oriented x3, right sided weakness, mild left sided facial drop, speech affected Results Labs 02/22/23 12:27 02/23/23 06:19 Labs: Laboratory Results - last 24 hr 02/22/23 12:27 MCV 89.2 MCH 29.9 MCHC 33.5 RDW 14.7 Plt Count 193 MPV 9.5 Immature Gran % (Auto) 0.2 Neut % (Auto) 75.4 H Lymph % (Auto) 14.2 L [place] % (Auto) 5.9 Eos % (Auto) 4.0 Baso % (Auto) 0.3 Lymph # (Auto) 1.3 [place] # (Auto) 0.6 Eos # (Auto) 0.4 Baso # (Auto) 0.0 Abs Immat Gran (auto) 0.02 Absolute Neuts (auto) 7.0 Absolute Nucleated RBC 0.000 Nucleated RBC % (auto) 0.0 PT 16.2 H INR 1.3 H Anion Gap 13 Estim Creat Clear Calc 104.1 Estimated GFR > 60 Random Glucose 110 Lactic Acid 1.3 Calcium 9.1 D Magnesium 2.0 Total Bilirubin 0.7 Direct Bilirubin 0.3 AST 21 ALT 13 Alkaline Phosphatase 95 B-Natriuretic Peptide 291 H Total Protein 7.1 Albumin 3.3 L Lipase 31 TSH 4.07 H Free T4 1.20 Influenza Type A (PCR) NEGATIVE Influenza Type B (PCR) NEGATIVE RSV RNA Qual (PCR) NEGATIVE SARS-CoV-2 RNA (RT-PCR) NEGATIVE Imaging Radiologist's Impressions: Impressions Chest X-Ray 02/22/23 12:44 IMPRESSION: Hypoexpanded with central vascular prominence and indistinctness to the vessels suggesting mild pulmonary edema superimposed on extensive chronic interstitial changes. Clinical correlation would be needed. Infectious etiology would be considered less likely. Assessment and Plan (1) Atrial flutter with rapid ventricular response: Status: Acute (2) Acute exacerbation of CHF (congestive heart failure): Status: Acute Plan An 82 years old male with PMH of Cortical basal degeneration, Pul fibrosis, AVR, CAD s\p double Bypass, PAF on eliquis among others who presents to the hospital with rapid heart rate of 140s. # Afib w RvR TSH normal On Cardizem drip received Digoxin restart Carvedilol Keep on Tele Cardiology consult Restart Eliquis # Diastolic CHF w exacerbation Elevated BNP w CXR showing fluid congestion received Lasix in ED # HLD Statin # Pulm Fibrosis on 2L chronic home O2 # Hypothyroidism Levothyroxine DVT PPx Eliquis The patient will likely need 2 overnight hospital stay for controlling the heart and monitoring for bradycardia events Quality Stroke Does the patient have a stroke diagnosis?: No VTE Prior VTE?: No VTE Risk Level:: Medical - moderate - high VTE Device Contraindication: Treatment Not Indicated VTE Drug Contraindication: N/A - Med Ordered
--- NOTE | 2023-02-22 16:11 | PC.NURSE ---
per hospitalist pt titrated back up to 15 mg/hr for dilt.
--- NOTE | 2023-02-22 16:14 | PC.NURSE ---
prior to adjusting the cardizem drip, pts hr was ranging he went from 130s dropped to 90s, up to low 100s back to 130s, Dr. Bray was notified.
[2023-02-22] MEDS: carvediloL 3.125 MG TABLET PO ×2 (16:17→22:53)
--- NOTE | 2023-02-22 16:17 | PC.NURSE ---
pt medicated per order
--- NOTE | 2023-02-22 16:37 | PHA.MEDREC ---
Pharmacy Consult ? Medication Reconciliation Pharmacy has completed the medication reconciliation. Patient's family in room with med list. Patient's family noted that patient was held from their Eliquis for 3 doses because of bleeding , but also mentioned that the bleeding has resolved .
--- NOTE | 2023-02-22 17:41 | PC.NURSE ---
the patients dilt drip was held per protocol as the HR decreased below 90, Dr. Bray was notified, repeat EKG was performed pt afib on monitor. at bedside, call marie within reach, will continue to monitor
[2023-02-22 18:29] VITALS: BP 96/62; PULSE 71; RESP 16; O2SAT 97
--- NOTE | 2023-02-22 18:31 | PC.NURSE ---
patient awake/alert to baseline, telemetry monitor afib 70s-80s, pt noted to be hypotensive 90s/60s, family at bedside- pt total feed, call marie within reach, will continue to monitor
--- NOTE | 2023-02-22 18:48 | PC.NURSE ---
Dilt drip Per Dr. Bray verbal order drip to be kept on hold and restart if the patients hr consistently runs above 90. Will pass message to nurse as well.
[2023-02-22] MEDS: Loratadine 10 MG TABLET PO (22:55)
[2023-02-22] MEDS: Apixaban 5 MG TABLET PO (22:55)
[2023-02-22] MEDS: Atorvastatin Calcium 80 MG TABLET PO (22:56)
[2023-02-22] MEDS: Multivitamin TABLET 1 TAB PO (22:57)
[2023-02-23] VITALS (9 sets, daily range): BP systolic 109–153; BP diastolic 60–76; PULSE 59–76; RESP 16–23; TEMP 36.4–36.9; O2SAT 92–97
--- NOTE | 2023-02-23 03:20 | PC.NURSE ---
dilt gtt remains PAUSED per hospitalist order on previous shift HR remains under 90.
[2023-02-23] MEDS: 0.9 % Sodium Chloride Flush 3 ML SYRINGE IVFLUSH ×4 (03:43→22:15)
--- NOTE | 2023-02-23 05:10 | PC.NURSE ---
this rn placed 20g IV in R wrist as previous IV was self removed pt reports did not realize this occurred. previous iv site cleaned and dressed with gauze and tape
[2023-02-23 05:16] LABS: Appearance Urine Clear; Color Urine Dark Yellow; Glucose Urine UA Negative (Negative); Leukocyte Esterase Urine Trace (Negative); Nitrite Urine Negative (Negative); PH 6.5 (5.0-9.0); UMIC TRIGGER UACC YES; Urine Blood Negative (Negative); Urine Ketones Trace mg/dL (Negative); Urine Protein Trace mg/dL (Neg-Trace)
[2023-02-23 05:21] LABS: Bacteria Urine None Seen (None Seen); Hyaline Casts Urine 0-2 /LPF (0-2); Squamous Epithelial Cell Urine 0-2 /HPF (0-2); WBC Urine 0-5 /HPF (0-5)
--- NOTE | 2023-02-23 05:30 | PC.NURSE ---
this rn and second rn checked pt for incontinence of urine pt clean and dry additional erika pad put in place. pt boosted up in bed HOB elevated
[2023-02-23 07:07] LABS: Anion Gap 14 (12-20); Blood Urea Nitrogen 13 mg/dL (9-16); Calcium 9.3 mg/dL (8.4-10.2); Carbon Dioxide 25 mmol/L (22-29); Chloride 103 mmol/L (96-108); Creatinine Clr Calc Pharmacy 104.1; Estimated Glomerular Filt Rate > 60; Glucose Random 102 mg/dL (60-115); Sodium 138 mmol/L (135-145)
--- NOTE | 2023-02-23 07:35 | PC.NURSE ---
Pharmacy called for Zinc.
[2023-02-23] MEDS: Multivitamin TABLET 1 TAB PO ×2 (07:56→22:15)
[2023-02-23] MEDS: Docusate Sodium 100 MG CAPSULE PO (07:56)
[2023-02-23] MEDS: Levothyroxine Sodium 88 MCG TABLET PO (07:57)
[2023-02-23] MEDS: Apixaban 5 MG TABLET PO ×2 (07:57→22:15)
[2023-02-23] MEDS: Ascorbic Acid 500 MG TABLET PO (07:57)
[2023-02-23] MEDS: Cholecalciferol (Vitamin D3) 25 MCG TABLET 50 MCG PO (07:57)
--- NOTE | 2023-02-23 09:54 | ECG_ITS ---
Test Reason : AFLUTTER Blood Pressure : / mmHG Vent. Rate : 074 BPM Atrial Rate : 000 BPM P-R Int : 000 ms QRS Dur : 144 ms QT Int : 424 ms P-R-T Axes : 000 001 178 degrees QTc Int : 470 ms Normal sinus rhythm Premature atrial complexes Left bundle branch block Abnormal ECG When compared with ECG of 22-FEB-2023 17:21, Rhythm change Referred By: Josiah Magaña Electronically Signed By:JOSIAH MAGAÑA
--- NOTE | 2023-02-23 10:00 | MHC.CM.PN ---
Addendum entered by Gila Bunch RN 02/23/23 11:36: Per patient will stay one more night. BLS cancelled. Original Note: IMM delivered. Met with patient, and daughter at bedside. Patient is from home with Lindsey. He is bed-bound and his is his primary caregiver. Also has [facility] for SN/PT/OT and an MANAGER RESOURCE 2x weekly while Lindsey runs errands. PCP: Rosales Ramirez MD but also sees Dr. Varela at the [facility]. Per Lindsey, patient is no longer able to transport to medical appointments and a referral has been made to home based primary care with the [facility]. HCP: [facility] Blood - copy on file DP: Per medically cleared for DC. Plan is return home via BLS. Resume services - return referral sent to [facility].
[2023-02-23] MEDS: Zinc Sulfate 220 MG CAPSULE PO (10:16)
--- NOTE | 2023-02-23 11:23 | P.CONCA_ITS ---
History of Present Illness History of Present Illness Date of Service: 02/23/23 Chief complaint: palpitations Narrative: This is a cardiology consultation regarding atrial flutter with rapid rate. Discussed in detail with as well as daughter. 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 Also has pulmonary fibrosis, coronary disease/bypass and paroxysmal atrial fibrillation on Eliquis. They are checking his vitals on a pulse ox machine and that showed heart rate in the 140s and hence he has been brought to the hospital. He takes carvedilol at home. Originally, used to be on 6.25 mg b.i.d. but a few months back it was cut back to 3.25 mg b.i.d.. More recently, there is a question of bradycardia and hence they being giving only once a day at nighttime. With regard to Eliquis, there was a question of rectal bleeding recently and they held for a few days but back on it last night. Patient himself is essentially bed-bound and does not really have much of ambulation or in fact any form of physical activity. He is denying any active cardiac symptoms at this time. Review of Systems 2 Review of Systems: Yes all other systems are reviewed and are negative Constitutional: Constitutional: Reports as per HPI and Reports no additional constitutional complaints Eyes: Eyes: Reports as per HPI and Denies no additional eye complaints ENT: Denies system reviewed and no additional complaints, except as documented and Reports as per HPI Cardiovascular: Cardiovascular: Reports as per HPI, Reports no additional cardiovascular complaints, Denies acrocyanosis, Denies cool extremities, Denies chest pain, Denies leg edema, Denies lightheadedness, Denies palpitations and Denies dyspnea Respiratory: Respiratory: Reports as per HPI, Denies no additional respiratory complaints and Denies dyspnea Gastrointestinal: Gastrointestinal: Reports as per HPI and Denies no additional gastrointestinal complaints Genitourinary: Genitourinary: Reports no additional male genitourinary complaints and Reports as per HPI Musculoskeletal: Musculoskeletal: Reports no additional musculoskeletal complaints and Reports as per HPI Integumentary/Breasts: Skin/Breast: Reports system reviewed and no additional complaints, except as docu Neurologic: Reports system reviewed and no additional complaints, except as documented and Reports as per HPI Psychiatric: Psychiatric: Reports no additional psychiatric complaints and Reports as per HPI Endocrine: Endocrine: Reports no additional endocrine complaints, Reports as per HPI and Denies palpitations Hematologic/Lymphatic: Hematologic/Lymphatic: Reports no additional hematologic/lymphatic complaints and Reports as per HPI Allergic/Immunologic: Allergic/Immunologic: Reports no additional allergic/immunologic complaints and Reports as per HPI [facility] Past Medical History Medical History Afib Mixed basal-squamous cell carcinoma Arthritis Cataract Hypoxemia Corticobasal degeneration Cough Pneumonitis Pulmonary fibrosis Allergic rhinitis Hypothyroid Hyperlipidemia Hypertension Family History Pertinent family history: No pertinent family history Surgical History Surgical History H/O aortic valve repair Hx of CABG Social History Social History Household Members: Spouse Housing: Condominium Do you presently have visiting nurse or other home services: Yes (Nurse, PT, OT, Home health aide) Patient Tobacco Use Status: Never used Tobacco Smoked in Last 30 Days: No e-Cigarette/Vaping Use: Never Used Use of substances other than those prescribed or required for medical reasons: No Have you been hit, kicked, punched, or otherwise hurt by someone within the past year? If so, by whom?: No Do you feel safe in your current relationship?: Yes Is there a partner from a previous relationship who is making you feel unsafe now?: No Are you made to feel afraid or neglected: No [facility] Healthcare Practices: [employer] Advance Directives: Yes Advance Directives on File: Yes Advance Directives Date on File: 04/09/20 Do you have thoughts of harming others: None Do you have a plan to hurt others: No Plan Recently lost weight without trying: No How much weight loss: 24-33 pounds Eating poorly because of decreased appetite: Yes Nutrition screen score: 4 Nutrition Risks: Difficulty swallowing and On aspiration precautions Poor oral hygiene: No service: Yes Current occupational status: retired Meds Allergies Allergy/AdvReac Type Severity Reaction Status Date / Time meperidine [From Demerol] AdvReac Unknown Unknown Verified 02/22/23 11:35 morphine AdvReac Unknown Unknown Verified 02/22/23 11:35 pregabalin [From Lyrica CR] AdvReac Unknown Unknown Verified 02/22/23 11:35 Active Medications: Current Medications Acetaminophen (Acetaminophen 325 Mg Tablet) 650 mg PO Q6H PRN PRN Reason: Pain, Mild (Pain Scale 1-3) Apixaban (Apixaban 5 Mg Tablet) 5 mg PO BID [facility] Last Admin: 02/23/23 07:57 Dose: 5 mg Ascorbic Acid (Ascorbic Acid 500 Mg Tablet) 500 mg PO DAILY [facility] Last Admin: 02/23/23 07:57 Dose: 500 mg Atorvastatin Calcium (Atorvastatin Calcium 80 Mg Tablet) 80 mg PO BEDTIME [facility] Last Admin: 02/22/23 22:56 Dose: 80 mg Betamethasone Dipropion Augmented (Betamethasone Dip Aug 0.05% Cr 15 Gm Tube) 1 appl TOPICAL BID PRN PRN Reason: Rash Carvedilol (Carvedilol 3.125 Mg Tablet) 3.125 mg PO BEDTIME [facility]; Protocol Last Admin: 02/22/23 22:53 Dose: 3.125 mg Clotrimazole (Clotrimazole 1 % Cream 15 Gm Tube) 1 appl TOPICAL BID PRN PRN Reason: Rash Docusate Sodium (Docusate Sodium 100 Mg Capsule) 100 mg PO DAILY [facility] Last Admin: 02/23/23 07:56 Dose: 100 mg Diltiazem HCl 125 mg/ Sodium (Chloride) 125 mls @ 0 mls/hr IVCONT .Q0M [facility]; Protocol Last Titration: 02/22/23 17:13 Dose: 0 mg/hr, 0 mls/hr Levothyroxine Sodium (Levothyroxine Sodium 88 Mcg Tablet) 88 mcg PO DAILY@0600 [facility] Last Admin: 02/23/23 07:57 Dose: 88 mcg Loratadine (Loratadine 10 Mg Tablet) 10 mg PO BEDTIME [facility] Last Admin: 02/22/23 22:55 Dose: 10 mg Multivitamins/Vitamin C (Multivitamin Tablet) 1 tab PO BID [facility] Last Admin: 02/23/23 07:56 Dose: 1 tab Ondansetron HCl (Ondansetron Hcl 4 Mg/2 Ml Vial) 4 mg IVPUSH Q8H PRN PRN Reason: Nausea and Vomiting Sodium Chloride (0.9 % Sodium Chloride Flush 3 Ml Syringe) 3 ml IVFLUSH QSHIFT [facility] Last Admin: 02/23/23 10:19 Dose: 3 ml Vitamin D (Cholecalciferol (Vitamin D3) 25 Mcg Tablet) 50 mcg PO DAILY [facility] Last Admin: 02/23/23 07:57 Dose: 50 mcg Zinc Sulfate (Zinc Sulfate 220 Mg Capsule) 220 mg PO DAILY [facility] Last Admin: 02/23/23 10:16 Dose: 220 mg Home Medications Medication Instructions Recorded Confirmed Last Taken Type ascorbic acid (vitamin C) 500 mg 500 mg PO DAILY 04/19/20 02/22/23 02/21/23 History capsule atorvastatin 80 mg tablet (Lipitor) 80 mg PO BEDTIME 04/19/20 02/22/23 02/21/23 History cetirizine 10 mg tablet (Zyrtec) 10 mg PO BEDTIME Allergy Symptoms 04/19/20 02/22/23 02/21/23 History cholecalciferol (vitamin D3) 50 50 mcg PO DAILY 04/19/20 02/22/23 02/21/23 History mcg (2,000 unit) capsule docusate sodium 100 mg capsule 100 mg PO DAILY 04/19/20 02/22/23 02/21/23 History vitamins A,C,A-xlqo-krcyfn 2,148 1 tab PO BID 04/19/20 02/22/23 02/21/23 History mcg-113 mg-45 mg-17.4 mg tablet (PreserVision AREDS) levothyroxine 88 mcg tablet 88 mcg PO DAILY@0600 07/12/22 02/22/23 02/22/23 06:00 History (Levoxyl) clobetasol 0.05 % topical cream 1 appl topical BID PRN psoriasis 01/27/23 02/22/23 Unknown History ketoconazole 2 % topical cream 1 appl topical BID PRN Rash 01/27/23 02/22/23 Unknown History carvedilol 3.125 mg tablet 3.125 mg PO BEDTIME 02/22/23 02/22/23 02/21/23 History zinc acetate 50 mg (zinc) capsule 50 mg PO DAILY 02/22/23 02/22/23 02/21/23 History Physical Exam 2 Vital Signs: Vital Signs: Last Vital Signs Temp 97.8 F 02/23/23 08:57 Pulse 72 02/23/23 08:57 Resp 20 02/23/23 08:57 BP 153/70 H 02/23/23 08:57 Pulse Ox 93 02/23/23 08:57 O2 Del Method Nasal Cannula 02/23/23 08:57 O2 Flow Rate 2 02/23/23 08:57 Oxygen Flow Rate 2 02/22/23 11:36 BMI result Body Mass Index 25.1 Const: General: comfortable and no acute distress O rientation/consciousness: patient oriented x3 HEENT: Other: Unremarkable Head: Yes normal to inspection Neck: Neck: Yes normal visual inspection Chest: Chest palpation & inspection: normal inspection of the chest Resp: Auscultation: crackles Cardio: Palpation: normal PMI Heart sounds: S1 normal heart sound present, S2 normal heart sound present, no gallops, Murmur heart sound present systolic II/ and at the right sternal border and no rubs GI: Palpation (GI): Soft to palpation Back/Spine/Pelvis: Other: unremarkable Skin: General skin exam: no rashes or lesions noted Neuro: General: patient oriented x3 Extrem: General: Yes normal to inspection Psych: Mental Status: mental status grossly normal Objective Labs and Meds 02/22/23 12:27 02/23/23 06:19 Lab results: Laboratory Results - last 24 hr 02/22/23 02/23/23 02/23/23 12:27 05:04 06:19 WBC 9.3 RBC 4.82 Hgb 14.4 Hct 43.0 MCV 89.2 MCH 29.9 MCHC 33.5 RDW 14.7 Plt Count 193 MPV 9.5 Immature Gran % (Auto) 0.2 Neut % (Auto) 75.4 H Lymph % (Auto) 14.2 L [place] % (Auto) 5.9 Eos % (Auto) 4.0 Baso % (Auto) 0.3 Lymph # (Auto) 1.3 [place] # (Auto) 0.6 Eos # (Auto) 0.4 Baso # (Auto) 0.0 Abs Immat Gran (auto) 0.02 Absolute Neuts (auto) 7.0 Absolute Nucleated RBC 0.000 Nucleated RBC % (auto) 0.0 Hold Purple Top SEE NOTE PT 16.2 H INR 1.3 H Sodium 136 138 Potassium 3.9 4.0 Chloride 104 103 Carbon Dioxide 23 25 Anion Gap 13 14 BUN 9 13 Creatinine 0.59 0.59 Estim Creat Clear Calc 104.1 104.1 Estimated GFR > 60 > 60 Random Glucose 110 102 Lactic Acid 1.3 Calcium 9.1 D 9.3 Magnesium 2.0 Total Bilirubin 0.7 Direct Bilirubin 0.3 AST 21 ALT 13 Alkaline Phosphatase 95 Troponin I High Sens 32.4 D B-Natriuretic Peptide 291 H Total Protein 7.1 Albumin 3.3 L Lipase 31 TSH 4.07 H Free T4 1.20 Urine Color Dark Yellow Urine Appearance Clear Urine pH 6.5 Ur Specific [place] 1.020 Urine Protein Trace Urine Glucose (UA) Negative Urine Ketones Trace Urine Blood Negative Urine Nitrite Negative Ur Leukocyte Esterase Trace H Urine RBC 3-5 H Urine WBC 0-5 Ur Squamous Epith Cells 0-2 Urine Bacteria None Seen Hyaline Casts 0-2 Influenza Type A (PCR) NEGATIVE Influenza Type B (PCR) NEGATIVE RSV RNA Qual (PCR) NEGATIVE SARS-CoV-2 RNA (RT-PCR) NEGATIVE ECG Interpretation: Initial EKG shows probably atrial flutter at a rate of 138/Min. Left bundle- branch block pattern. In the repeat EKG, suspect atrial flutter with controlled rate. In today's EKG, no clear flutter pattern. Suspect either sinus rhythm. Imaging Radiologist's impression: Impressions Chest X-Ray 02/22/23 12:44 IMPRESSION: Hypoexpanded with central vascular prominence and indistinctness to the vessels suggesting mild pulmonary edema superimposed on extensive chronic interstitial changes. Clinical correlation would be needed. Infectious etiology would be considered less likely. Assessment and Plan (1) Atrial flutter with rapid ventricular response: Status: Acute Plan Elderly patient with many comorbidities and essentially bed-bound state. Currently only taking carvedilol 3.125 in the evening. We can switch him to metoprolol 25 mg twice a day and monitor him for another day or so. We can monitor him for any bradycardic episodes for the 24 hours or so. Otherwise, continue anticoagulation. Considering his overall frailty, age and comorbidities would not pursue anything aggressive. Discussed with Dr. Bray. Procedures Date of Service Date of Service: 02/23/23
--- NOTE | 2023-02-23 12:01 | HO.PM.IMPN ---
Subjective Subjective Date of Service: 02/23/23 Interval History: Seen and evaluated this morning HR controlled since last night denies any chest pain or SOB Review of Systems Review of Systems: Yes all other systems are reviewed and are negative Physical Exam Vital Signs: Vital Signs: Last Vital Signs Temp 97.8 F 02/23/23 08:57 Pulse 72 02/23/23 08:57 Resp 20 02/23/23 08:57 BP 153/70 H 02/23/23 08:57 Pulse Ox 93 02/23/23 08:57 O2 Del Method Nasal Cannula 02/23/23 08:57 O2 Flow Rate 2 02/23/23 08:57 Oxygen Flow Rate 2 02/22/23 11:36 BMI result Body Mass Index 25.1 Const: Other: Constitutional : Awake, interactive, not in distress Neck : Normal inspection, Supple Cardiovascular :regular, no JVP, no lower extremity edema Respiratory : fair bilateral air entry, no crackles, no wheezes or rhonchi Gastrointestinal: soft, lax, Normal bowel sounds, Non tender Skin : Warm, Dry Neurological : Alert & oriented x3, right sided weakness, mild left sided facial drop, speech affected Objective Data Active Medications Acetaminophen (Acetaminophen 325 Mg Tablet) 650 mg PO Q6H PRN PRN Reason: Pain, Mild (Pain Scale 1-3) Apixaban (Apixaban 5 Mg Tablet) 5 mg PO BID [facility] Last Admin: 02/23/23 07:57 Dose: 5 mg Documented By: MILAGRO Ascorbic Acid (Ascorbic Acid 500 Mg Tablet) 500 mg PO DAILY [facility] Last Admin: 02/23/23 07:57 Dose: 500 mg Documented By: MILAGRO Atorvastatin Calcium (Atorvastatin Calcium 80 Mg Tablet) 80 mg PO BEDTIME [facility] Last Admin: 02/22/23 22:56 Dose: 80 mg Documented By: MALA Betamethasone Dipropion Augmented (Betamethasone Dip Aug 0.05% Cr 15 Gm Tube) 1 appl TOPICAL BID PRN PRN Reason: Rash Clotrimazole (Clotrimazole 1 % Cream 15 Gm Tube) 1 appl TOPICAL BID PRN PRN Reason: Rash Docusate Sodium (Docusate Sodium 100 Mg Capsule) 100 mg PO DAILY [facility] Last Admin: 02/23/23 07:56 Dose: 100 mg Documented By: MILAGRO Diltiazem HCl 125 mg/ Sodium (Chloride) 125 mls @ 0 mls/hr IVCONT .Q0M [facility]; Protocol Last Titration: 02/22/23 17:13 Dose: 0 mg/hr, 0 mls/hr Documented By: CIERRA Levothyroxine Sodium (Levothyroxine Sodium 88 Mcg Tablet) 88 mcg PO DAILY@0600 [facility] Last Admin: 02/23/23 07:57 Dose: 88 mcg Documented By: MILAGRO Loratadine (Loratadine 10 Mg Tablet) 10 mg PO BEDTIME [facility] Last Admin: 02/22/23 22:55 Dose: 10 mg Documented By: MALA Metoprolol Tartrate (Metoprolol Tartrate 25 Mg Tablet) 25 mg PO BID [facility]; Protocol Multivitamins/Vitamin C (Multivitamin Tablet) 1 tab PO BID [facility] Last Admin: 02/23/23 07:56 Dose: 1 tab Documented By: MILAGRO Ondansetron HCl (Ondansetron Hcl 4 Mg/2 Ml Vial) 4 mg IVPUSH Q8H PRN PRN Reason: Nausea and Vomiting Sodium Chloride (0.9 % Sodium Chloride Flush 3 Ml Syringe) 3 ml IVFLUSH QSHIFT [facility] Last Admin: 02/23/23 10:19 Dose: 3 ml Documented By: AMANDA Vitamin D (Cholecalciferol (Vitamin D3) 25 Mcg Tablet) 50 mcg PO DAILY [facility] Last Admin: 02/23/23 07:57 Dose: 50 mcg Documented By: MILAGRO Zinc Sulfate (Zinc Sulfate 220 Mg Capsule) 220 mg PO DAILY [facility] Last Admin: 02/23/23 10:16 Dose: 220 mg Documented By: AMANDA Labs 02/22/23 12:27 02/23/23 06:19 Labs: Laboratory Results - last 24 hr 02/22/23 02/23/23 02/23/23 12:27 05:04 06:19 MCV 89.2 MCH 29.9 MCHC 33.5 RDW 14.7 Plt Count 193 MPV 9.5 Immature Gran % (Auto) 0.2 Neut % (Auto) 75.4 H Lymph % (Auto) 14.2 L [place] % (Auto) 5.9 Eos % (Auto) 4.0 Baso % (Auto) 0.3 Lymph # (Auto) 1.3 [place] # (Auto) 0.6 Eos # (Auto) 0.4 Baso # (Auto) 0.0 Abs Immat Gran (auto) 0.02 Absolute Neuts (auto) 7.0 Absolute Nucleated RBC 0.000 Nucleated RBC % (auto) 0.0 Hold Purple Top SEE NOTE PT 16.2 H INR 1.3 H Anion Gap 13 14 Estim Creat Clear Calc 104.1 104.1 Estimated GFR > 60 > 60 Random Glucose 110 102 Lactic Acid 1.3 Calcium 9.1 D 9.3 Magnesium 2.0 Total Bilirubin 0.7 Direct Bilirubin 0.3 AST 21 ALT 13 Alkaline Phosphatase 95 B-Natriuretic Peptide 291 H Total Protein 7.1 Albumin 3.3 L Lipase 31 TSH 4.07 H Free T4 1.20 Urine Color Dark Yellow Urine Appearance Clear Urine pH 6.5 Ur Specific [place] 1.020 Urine Protein Trace Urine Glucose (UA) Negative Urine Ketones Trace Urine Blood Negative Urine Nitrite Negative Ur Leukocyte Esterase Trace H Urine RBC 3-5 H Urine WBC 0-5 Ur Squamous Epith Cells 0-2 Urine Bacteria None Seen Hyaline Casts 0-2 Influenza Type A (PCR) NEGATIVE Influenza Type B (PCR) NEGATIVE RSV RNA Qual (PCR) NEGATIVE SARS-CoV-2 RNA (RT-PCR) NEGATIVE Assessment and Plan (1) Atrial flutter with rapid ventricular response: Status: Acute (2) PAF (paroxysmal atrial fibrillation): Status: Acute Plan An 82 years old male with PMH of Cortical basal degeneration, Pul fibrosis, AVR, CAD s\p double Bypass, PAF on eliquis among others who presents to the hospital with rapid heart rate of 140s. # Afib w RvR TSH normal DC Cardizem drip DC Carvedilol and start Metoprolol 25mg bid Keep on Tele to monitor for paulette cardia Cardiology input appreciated Continue Eliquis # Diastolic CHF w exacerbation looks euovolumic today received Lasix in ED, hold for now # HLD Statin # Pulm Fibrosis on 2L chronic home O2 # Hypothyroidism Levothyroxine DVT PPx Eliquis The patient will likely need overnight hospital stay for controlling the heart and monitoring for bradycardia events Quality Stroke Does the patient have a stroke diagnosis?: No VTE Prior VTE?: No VTE Risk Level:: Medical - moderate - high VTE Device Contraindication: Treatment Not Indicated VTE Drug Contraindication: N/A - Med Ordered
[2023-02-23] MEDS: Metoprolol Tartrate 25 MG TABLET PO (12:26)
[2023-02-23] MEDS: Loratadine 10 MG TABLET PO (22:15)
[2023-02-23] MEDS: Atorvastatin Calcium 80 MG TABLET PO (22:15)
[2023-02-24 03:54] VITALS: BP 127/72; PULSE 64; RESP 19; TEMP 36.5; O2SAT 95
--- NOTE | 2023-02-24 05:21 | PC.NURSE ---
metoprolol 25 mg po held at 2100 due to hr in 50's at times. throughout the night heart rate ranged from 40's to 70's. md aware of medication held at hs.
[2023-02-24] MEDS: Levothyroxine Sodium 88 MCG TABLET PO (06:31)
[2023-02-24 07:21] VITALS: BP 121/56; PULSE 56; RESP 20; TEMP 36.5; O2SAT 95
--- NOTE | 2023-02-24 09:11 | MHC.CM.PN ---
CM MET WITH PT AND BEDSIDE THEY ARE AWARE PT HAS BEEN CLEARED TO DC HOME TODAY PREVIOUS SERVICES SHOULD BE RESUMED, UPDATE SENT TO [facility] [employer] [facility] THEY RECEIVED [facility] NOTICE FROM [facility] SAYING NOT TO USE [facility] IT WOULD NOT BE COVERED CM INFORMED THEM LARA WOULD BE USED THEY ARE AWARE TRANSPORT IT BOOKED FOR 1200 HOURS
[2023-02-24] MEDS: Metoprolol Tartrate 25 MG TABLET PO (09:12)
[2023-02-24] MEDS: Apixaban 5 MG TABLET PO (09:12)
[2023-02-24] MEDS: 0.9 % Sodium Chloride Flush 3 ML SYRINGE IVFLUSH (09:12)
[2023-02-24] MEDS: Cholecalciferol (Vitamin D3) 25 MCG TABLET 50 MCG PO (09:13)
[2023-02-24] MEDS: Docusate Sodium 100 MG CAPSULE PO (09:13)
[2023-02-24] MEDS: Zinc Sulfate 220 MG CAPSULE PO (09:13)
[2023-02-24] MEDS: Ascorbic Acid 500 MG TABLET PO (09:13)
[2023-02-24] MEDS: Multivitamin TABLET 1 TAB PO (09:13)
--- NOTE | 2023-02-24 10:53 | PM.PNCARD ---
Subjective Subjective Date of Service: 02/24/23 Interval history: He seems to be doing okay. Discussed with patient as well as . No cardiac symptoms. Review of Systems Review of Systems Yes all other systems are reviewed and are negative Constitutional: Reports as per HPI and Reports no additional constitutional complaints Eyes: Reports as per HPI and Denies no additional eye complaints Denies system reviewed and no additional complaints, except as documented and Reports as per HPI Cardiovascular: Reports as per HPI, Reports no additional cardiovascular complaints, Denies acrocyanosis, Denies cool extremities, Denies chest pain, Denies leg edema, Denies lightheadedness, Denies palpitations and Denies dyspnea Respiratory: Reports as per HPI, Denies no additional respiratory complaints and Denies dyspnea Gastrointestinal: Reports as per HPI and Denies no additional gastrointestinal complaints Genitourinary: Reports no additional male genitourinary complaints and Reports as per HPI Musculoskeletal: Reports no additional musculoskeletal complaints and Reports as per HPI Skin/Breast: Reports system reviewed and no additional complaints, except as docu Reports system reviewed and no additional complaints, except as documented and Reports as per HPI Psychiatric: Reports no additional psychiatric complaints and Reports as per HPI Endocrine: Reports no additional endocrine complaints, Reports as per HPI and Denies palpitations Hematologic/Lymphatic: Reports no additional hematologic/lymphatic complaints and Reports as per HPI Allergic/Immunologic: Reports no additional allergic/immunologic complaints and Reports as per HPI Physical Exam Vital Signs: Last Vital Signs Temp 97.7 F 02/24/23 07:21 Pulse 56 02/24/23 07:21 Resp 20 02/24/23 07:21 BP 121/56 L 02/24/23 07:21 Pulse Ox 95 02/24/23 07:21 O2 Del Method Nasal Cannula 02/24/23 07:21 O2 Flow Rate 2 02/24/23 07:21 Oxygen Flow Rate 2 02/22/23 11:36 BMI result Body Mass Index 25.1 Const General: comfortable and no acute distress Orientation/consciousness: patient oriented x3 HEENT Other: Unremarkable Head: Yes normal to inspection Neck Neck: Yes normal visual inspection Chest Chest palpation & inspection: normal inspection of the chest Resp Auscultation: clear to auscultation bilaterally Cardio Palpation: normal PMI Heart sounds: S1 normal heart sound present, S2 normal heart sound present, no gallops, no murmurs and no rubs GI Palpation (GI): Soft to palpation Back/Spine/Pelvis Other: unremarkable Skin General skin exam: no rashes or lesions noted Neuro General: patient oriented x3 Extrem General: Yes normal to inspection Psych Mental Status: mental status grossly normal Objective Labs and Meds 02/22/23 12:27 02/23/23 06:19 Progress Note: A&P Assessment and plan (1) Atrial flutter with rapid ventricular response: Status: Acute Plan Elderly patient with many comorbidities and essentially bed-bound state. He was on carvedilol 3.125 mg in the evening only. No switched to metoprolol 25 mg b.i.d.. On telemetry, in sinus rhythm in the 60s. On anticoagulation. Discussed with . Discussed with Dr. Bray. Time Spent With Patient Time: Total time managing care of this patient today ____ minutes. Progress Note: Quality Stroke Does the patient have a stroke diagnosis?: No Procedures Date of Service Date of Service: 02/24/23
--- NOTE | 2023-02-24 11:19 | P.DS_ITS ---
DS: Providers Provider Date of Service: 02/24/23 Date of admission: 02/22/23 15:54 Primary care physician: Rosales Ramirez MD Consults: 02/22/23 15:54 Consult to Cardiology Routine Consulting Provider[place] [facility] Reason for consultation: Afib w rvr, mild CHF DS: Diagnosis Discharge Diagnosis (1) Atrial flutter with rapid ventricular response: Status: Acute (2) Acute exacerbation of CHF (congestive heart failure): Status: Acute DS: Summary Hospital Course Hospital Course: Admission note HPI An 82 years old male with PMH of Cortical basal degeneration, Pul fibrosis, AVR, CAD s\p double Bypass, PAF on eliquis among others who presents to the hospital with rapid heart rate of 140s. He has aparent weakness in his right side and in his speech and facial expressions. The patient had a GI illness after Mika with vomiting and diarrhea. his monitor his vitals at home as he is on 2L O2. This morning she noticed that his heart rate is rapid in 140s with no complaints. The patient denies No chest pain, palpitations, SOB, nausea, vomiting, diarrhea or urinary symptoms at this point. His Carvedilol dosage was decreased more than a month ago. In ED found to be in Afib rvr, started on Cardizem drip. Blood work also consistent with elevated BNP. CXR showing fluid overload. Hospital course # Afib w RvR The patient was admitted for rate controled. Started on Cardizem drip that was later discontinued as his heart rate improved. Carvedilol was resumed with good response as he converted back to sinus rhythm. Seen by document control manager who recommended to change to Metoprolol 25mg bid given history of pauses and bradycardia per the . the patient tolerated Metoprolol well with no documented bradycardia or pauses. # Diastolic CHF w exacerbation CXR showedm mild fluid congestion and pulmonary edema associated with elevated BNP. Started on IV Lasix with fair response. Lasix discontinued. Discontinue Carvedilol Start Metoprolol 25 mg twice daily Monitor heart rate and blood pressure at home Time Attestation Discharge coordination time: Greater than 30 minutes Quality: Safe Use of Opioids Does Pt have an Active Cancer Diagnosis on the Problem List?: No Quality: Stroke Does the patient have a stroke diagnosis?: No Physical Exam Vital Signs: Vital Signs: Last Vital Signs Temp 97.7 F 02/24/23 07:21 Pulse 56 02/24/23 07:21 Resp 20 02/24/23 07:21 BP 121/56 L 02/24/23 07:21 Pulse Ox 95 02/24/23 07:21 O2 Del Method Nasal Cannula 02/24/23 07:21 O2 Flow Rate 2 02/24/23 07:21 Oxygen Flow Rate 2 02/22/23 11:36 BMI result Body Mass Index 25.1 Const: Other: Constitutional : Awake, interactive, not in distress Neck : Normal inspection, Supple Cardiovascular :regular, no JVP, no lower extremity edema Respiratory : fair bilateral air entry, no crackles, no wheezes or rhonchi Gastrointestinal: soft, lax, Normal bowel sounds, Non tender Skin : Warm, Dry Neurological : Alert & oriented x3, right sided weakness, mild left sided facial drop, speech affected DS: Data Imaging Chest x-ray: Radiologist's impression: ITS Impressions Chest X-Ray 02/22/23 12:44 IMPRESSION: Hypoexpanded with central vascular prominence and indistinctness to the vessels suggesting mild pulmonary edema superimposed on extensive chronic interstitial changes. Clinical correlation would be needed. Infectious etiology would be considered less likely. Discharge Plan Discharge Anticipated Discharge Date/Time: 02/24/23 11:10 Patient Disposition: Home Health Service Discharge Diagnosis: Atrial flutter with tachycardia Referrals: [facility] [Other] - 3-5 Days (previous services should resume ) Rosales Ramirez MD [Primary Care Provider] - 1 Week Discharge Medications: New metoprolol tartrate 25 mg Tablet 25 mg PO BID Qty: 60 1RF Protocol: Hold for SBP/HR < HOLD for SBP < : 90 HOLD for HR < : 60 Continued levothyroxine [Levoxyl] 88 mcg tablet 88 mcg PO DAILY@0600 Eliquis 5 mg Tablet 5 mg PO BID Qty: 60 0RF Rx Instructions: WAS HELD FOR 3 DOSES 02/21/23-02/22/23 zinc acetate 50 mg (zinc) Capsule 50 mg PO DAILY atorvastatin [Lipitor] 80 mg tablet 80 mg PO BEDTIME PreserVision AREDS 7,160 unit- 113 mg-100 unit tablet 1 tab PO BID Rx Instructions: administer with AM and PM meals ascorbic acid (vitamin C) 500 mg capsule 500 mg PO DAILY cholecalciferol (vitamin D3) 50 mcg (2,000 unit) capsule 50 mcg PO DAILY docusate sodium 100 mg capsule 100 mg PO DAILY cetirizine [Zyrtec] 10 mg tablet 10 mg PO BEDTIME clobetasol 0.05 % cream 1 appl topical BID PRN (Reason: psoriasis) Rx Instructions: scalp ketoconazole 2 % cream 1 appl topical BID PRN (Reason: Rash) Rx Instructions: FACE AND EARS Discontinued carvedilol 3.125 mg tablet 3.125 mg PO BEDTIME Discharge Orders: Discharge Order (Routine); Ordered 02/24/23 Ordered By: Chelsey Bray Diet: Advance to usual diet Activity on Discharge: As tolerated Stand Alone Forms: Patient Portal Discharge page Care Plan Goals: Read below Health Concerns: Read below Plan of Treatment: Read below Assessment: Discontinue Carvedilol Start Metoprolol 25 mg twice daily Monitor heart rate and blood pressure at home
== END 2023-02-24 11:55 | disposition home health service (06) | DRG 308 ==
LOC: HO.ED 14:16 → HO.EDOVER 16:11 → HO.IMC 02-23 07:44
PROVIDERS: Admitting Provider Student in an Organized Health Care Education/Training Program; Emergency Provider Emergency Medicine; PCP Internal Medicine; Visit Provider Student in an Organized Health Care Education/Training Program
DX: I48.92 Unspecified atrial flutter (principal); I50.33 Acute on chronic diastolic (congestive) heart failure; E78.5 Hyperlipidemia, unspecified; E03.9 Hypothyroidism, unspecified; I48.0 Paroxysmal atrial fibrillation; I25.10 Atherosclerotic heart disease of native coronary artery without angina pectoris; Z95.1 Presence of aortocoronary bypass graft; J84.10 Pulmonary fibrosis, unspecified; Z20.822 Contact with and (suspected) exposure to COVID-19; Z99.81 Dependence on supplemental oxygen; Z79.890 Hormone replacement therapy; Z79.01 Long term (current) use of anticoagulants; Z79.899 Other long term (current) drug therapy
CPT/HCPCS: 0241U; 36415; 71045; 80048; 80076; 81001; 83605; 83690; 83735; 83880; 84439; 84443; 84484; 85025; 85610; 93005; 99285; J1160

== ENCOUNTER 2023-02-22 15:54 | Outpatient (BNV) | payer MEDICARE, SELFPAY | END 2023-02-23 09:54 | PROVIDERS: Admitting Provider Student in an Organized Health Care Education/Training Program; Emergency Provider Emergency Medicine; PCP Internal Medicine; Visit Provider Internal Medicine | DX: I49.1 Atrial premature depolarization (principal); R94.31 Abnormal electrocardiogram [ECG] [EKG] | CPT/HCPCS: 93010 ==

== ENCOUNTER → 2023-02-22 15:54 | Outpatient (BNV) | payer MEDICARE, SELFPAY | PROVIDERS: Admitting Provider Student in an Organized Health Care Education/Training Program; Emergency Provider Emergency Medicine; PCP Internal Medicine; Visit Provider Internal Medicine | DX: I48.92 Unspecified atrial flutter (principal); I44.7 Left bundle-branch block, unspecified | CPT/HCPCS: 93010; 99223; 99232 ==

== ENCOUNTER → 2023-02-22 15:54 | Outpatient (BNV) | payer MEDICARE, SELFPAY | PROVIDERS: Admitting Provider Student in an Organized Health Care Education/Training Program; Emergency Provider Emergency Medicine; PCP Internal Medicine; Visit Provider Student in an Organized Health Care Education/Training Program | DX: I48.92 Unspecified atrial flutter (principal); I50.9 Heart failure, unspecified | CPT/HCPCS: 99223; 99232; 99239 ==

== ENCOUNTER 2023-04-22 00:11 | Inpatient (IN) | payer OTHER, MEDICARE, SELFPAY ==
[2023-04-22] VITALS (18 sets, daily range): BP systolic 81–135; BP diastolic 50–88; PULSE 64–140; RESP 14–21; TEMP 36.4–36.7; O2SAT 91–97; BMI 28.7; BMI 24.1
--- NOTE | ~2023-04-22 | XR_ITS ---
EXAMINATION: XR CHEST CLINICAL INFORMATION: CHF COMPARISON: 02/22/2023 TECHNIQUE: Frontal view of the chest was obtained. FINDINGS: Lung volumes are symmetric. Underlying chronic interstitial lung disease is suspected. Superimposed patchy airspace opacities are again demonstrated, right lung greater than left. No appreciable pneumothorax. Probable small right pleural effusion. The cardiomediastinal silhouette is stable. Sternal wires are present. No acute osseous findings are seen. XR/XR chest 1V IMPRESSION: Persistent patchy bilateral airspace opacities, right greater than left, likely superimposed on underlying chronic interstitial lung disease. Appearance could reflect edema versus infectious etiology. Probable small right pleural effusion.
[2023-04-22 00:50] LABS: MANUAL DIFF FLAG NO
--- NOTE | 2023-04-22 00:50 | ED_ITS ---
HPI - Arrhythmia/Palpitations General Chief Complaint: Arrhythmia/Palpitations Stated Complaint: chest pain Time Seen by Provider: 04/22/23 00:50 Source: family Mode of arrival: EMS Limitations: no limitations History of Present Illness HPI narrative: Patient with history of atrial fibrillation on Eliquis and metoprolol 12.5 mg twice daily with well controlled heart rate, history of cortical basal degeneration, pulmonary fibrosis, AVR, CAD status post CABG patient's noticed blood pressure in 80s when was giving her his metoprolol 12.5 mg heart rate was 59 at that time later heart rate increased to 130-150 no chest pain no diaphoresis no shortness of breath when patient arrived heart rate was 130s Related Data Home Medications Medication Instructions Recorded Confirmed ascorbic acid (vitamin C) 500 mg 500 mg PO DAILY 04/19/20 02/22/23 capsule atorvastatin 80 mg tablet (Lipitor) 80 mg PO BEDTIME 04/19/20 02/22/23 cetirizine 10 mg tablet (Zyrtec) 10 mg PO BEDTIME Allergy Symptoms 04/19/20 02/22/23 cholecalciferol (vitamin D3) 50 50 mcg PO DAILY 04/19/20 02/22/23 mcg (2,000 unit) capsule docusate sodium 100 mg capsule 100 mg PO DAILY 04/19/20 02/22/23 vitamins A,C,L-zird-ejirrg 2,148 1 tab PO BID 04/19/20 02/22/23 mcg-113 mg-45 mg-17.4 mg tablet (PreserVision AREDS) levothyroxine 88 mcg tablet 88 mcg PO DAILY@0600 07/12/22 02/22/23 (Levoxyl) clobetasol 0.05 % topical cream 1 appl topical BID PRN psoriasis 01/27/23 02/22/23 ketoconazole 2 % topical cream 1 appl topical BID PRN Rash 01/27/23 02/22/23 zinc acetate 50 mg (zinc) capsule 50 mg PO DAILY 02/22/23 02/22/23 Previous Rx's Medication Instructions Recorded apixaban 5 mg tablet (Eliquis) 5 mg PO BID #60 tabs 07/14/22 metoprolol tartrate 25 mg tablet 25 mg PO BID #60 tabs 02/24/23 Allergies Allergy/AdvReac Type Severity Reaction Status Date / Time meperidine [From Demerol] AdvReac Unknown Unknown Verified 04/22/23 00:20 morphine AdvReac Unknown Unknown Verified 04/22/23 00:20 pregabalin [From Lyrica CR] AdvReac Unknown Unknown Verified 04/22/23 00:20 Review of Systems 2 Review of Systems: Yes Unobtainable due to mental status PMFSH Past Medical History Medical History Atrial flutter PAF (paroxysmal atrial fibrillation) Afib Mixed basal-squamous cell carcinoma Arthritis Cataract Hypoxemia Corticobasal degeneration Cough Pneumonitis Pulmonary fibrosis Allergic rhinitis Hypothyroid Hyperlipidemia Hypertension Surgical History H/O aortic valve repair Hx of CABG Social History Social History Household Members: [facility] Do you presently have visiting nurse or other home services: Yes (Nurse, PT, OT, Home health aide) Patient Tobacco Use Status: Never used Tobacco Smoked in Last 30 Days: No e-Cigarette/Vaping Use: Never Used Use of substances other than those prescribed or required for medical reasons: No Advance Directives: Yes Advance Directives on File: Yes Advance Directives Date on File: 04/09/20 service: Yes Current occupational status: retired Physical Exam 2 Vital Signs: Vital Signs: Last Vital Signs Temp 97.9 F 04/22/23 00:26 Pulse 74 04/22/23 06:02 Resp 19 04/22/23 06:02 BP 105/64 04/22/23 06:02 Pulse Ox 94 04/22/23 06:02 O2 Del Method Nasal Cannula 04/22/23 06:02 O2 Flow Rate 4 04/22/23 06:02 BMI result Body Mass Index 28.7 Appearance: Alert. And awake No acute distress. Slow to response Eyes: PERRLA, ENT: Pharynx normal. Oral Mucosa moist Neck: Normal inspection. Neck supple. CVS: Normal heart rate and rhythm. Pulses normal. Respiratory: No respiratory distress. Equal air entry bilateral, bilateral fine rales diffuse Abdomen: Soft and nontender. Bowel sounds are present, no mass palpable, no CVA tenderness Skin: Skin warm and dry. Normal skin color. Normal skin turgor. Extremities: No lower extremity edema. No calf tenderness Neuro: Alert and awake1-2 decreased leg movement right side weaker than left Medications Administered Discontinued Medications Generic Name Dose Route Start Last Admin Trade Name Maggie PRN Reason Stop Dose Admin Digoxin 0.25 mg 04/22/23 03:28 04/22/23 03:34 Digoxin 0.5 Mg/2 Ml Ampul IVPUSH 04/22/23 03:29 0.25 mg ONCE ONE Administration Diltiazem HCl 10 mg 04/22/23 02:24 04/22/23 02:31 Diltiazem Hcl 50 Mg/10 Ml Vial IVPUSH 04/22/23 02:25 10 mg STAT STA Administration Sodium Chloride 1,000 mls @ 999 mls/hr 04/22/23 01:45 04/22/23 03:22 Ns IV 04/22/23 02:45 Infused .Q1H1M CAIN Infusion Sodium Chloride 1,000 mls @ 125 mls/hr 04/22/23 05:00 04/22/23 06:19 Ns IVCONT Infused .Q8H CAIN Infusion Metoprolol Tartrate 5 mg 04/22/23 00:56 04/22/23 01:08 Metoprolol Tartrate 5 Mg/5 Ml Vial IVPUSH 04/22/23 00:57 5 mg ONCE ONE Administration Medical Decision Making Medical Decision Making [facility] Narrative: 05:35 patient with AFib with rapid ventricular rate with blood pressure on the lower side received initially 5 mg of metoprolol with slight response again diltiazem was given with partial response but blood pressure stayed on the lower range patient received digoxin and converted to normal sinus rhythm at 05:30 chest x-ray showed chronic changes possible infiltrate patient does not have any fever no change in mental status normal white counts clinically patient does not have pneumonia but does have history of aspiration pneumonia. will do lactic acid blood cultures Differential Diagnosis Differential Diagnoses: The differential diagnosis associated with the presentation includes Atrial flutter/fibrillation/SVT Admission/Observation Consideration of admission/observation: Escalation of care including admission/observation considered Consult Healthcare Provider Management of the patient was discussed with: Hospitalist Lab Data [facility] Lab Attestation statement: I reviewed the patient's lab results. 04/22/23 00:41 04/22/23 00:41 Labs: Lab Results 02/27/24 02/27/24 Range/Units 00:41 05:49 WBC 9.6 (4.8-10.8) X10*3/uL RBC 4.66 (4.60-5.80) X10*6/uL Hgb 14.1 (14.0-18.0) g/dl Hct 41.3 L (42.0-52.0) % MCV 88.6 (80.0-98.0) fL MCH 30.3 (27.0-33.0) pg MCHC 34.1 (31.0-36.0) g/dl RDW 14.7 (11.0-16.0) % Plt Count 162 (160-400) X10*3/uL MPV 9.9 (9.4-12.4) fL Immature Gran % (Auto) 0.2 (0.0-0.4) % Neut % (Auto) 69.2 (45-73) % Lymph % (Auto) 19.6 L (20-40) % [place] % (Auto) 6.4 (2-11) % Eos % (Auto) 4.3 H (0-4) % Baso % (Auto) 0.3 (0-2) % Lymph # (Auto) 1.9 (1.2-4.9) X10*3/uL [place] # (Auto) 0.6 (0.1-1.2) X10*3/uL Eos # (Auto) 0.4 (0.0-0.4) X10*3/uL Baso # (Auto) 0.0 (0.0-0.2) X10*3/uL Abs Immat Gran (auto) 0.02 (0.00-0.03) X10*3/uL Absolute Neuts (auto) 6.6 (2.0-8.3) x10*3/uL Absolute Nucleated RBC 0.000 (0.0-0.012) X10*3/uL Nucleated RBC % (auto) 0.0 (0.0-0.2) /100WBC Sodium 140 (135-145) mmol/L Potassium 4.2 (3.3-5.1) mmol/L Chloride 103 (96-108) mmol/L Carbon Dioxide 25 (22-29) mmol/L Anion Gap 16 (12-20) BUN 11 (9-16) mg/dL Creatinine 0.62 (0.5-1.4) mg/dL Estim Creat Clear Calc 102.2 Estimated GFR > 60 Random Glucose 108 (60-115) mg/dL Lactic Acid 1.7 (0.5-2.0) mmol/L Calcium 9.3 (8.4-10.2) mg/dL Total Bilirubin 0.5 (0.0-1.0) mg/dL AST 26 (5-37) U/L ALT 17 (0-40) U/L Alkaline Phosphatase 103 (39-117) U/L Troponin I High Sens 39.8 H (<3.5-35.0) ng/L B-Natriuretic Peptide 369 H (<100) pg/mL Total Protein 7.5 (6.5-8.0) g/dL Albumin 3.4 L (3.5-5.0) g/dL COVID-19 (ADRIENNE) Negative (Negative) COVID-19 Clin Com See Note Independent Interpretation I performed an independent interpretation of an: EKG and Plain X-Ray Interpretation: Atrial fibrillation with ventricular rate of 137 left bundle-branch block no acute ST T wave changes no acute ischemia Radiology Impression Discussion of test interpretation with radiology: I have reviewed the radiologist's reading. Critical Care Time Critical Care Time Critical Care Time: Yes Total Critical Care Time: 55 Attestation: The patient was critically ill with a high probability of imminent or life threatening deterioration. I spent greater than 55?minutes of discontinuous time evaluating the patient,delivering critical care at the bedside, discussing and evaluating pertinent data with consultants. Critical care time does not include time spent performing separately billable procedures or teaching. Total time spent performing critical care was 50???minutes. Discharge Plan Discharge Clinical Impression: Atrial fibrillation with rapid ventricular response, Pulmonary fibrosis Patient Disposition: Admitted As Inpatient
[2023-04-22 00:51] LABS: Basophils Percent Auto 0.3 % (0-2); Eosinophils Absolute Auto 0.4 X10*3/uL (0.0-0.4); Eosinophils Percent Auto 4.3 % (0-4); Hematocrit 41.3 % (42.0-52.0); Hemoglobin 14.1 g/dl (14.0-18.0); Imm Gran Abs Auto 0.02 X10*3/uL (0.00-0.03); Imm Gran Pct Auto 0.2 % (0.0-0.4); Lymphocytes Absolute Auto 1.9 X10*3/uL (1.2-4.9); Lymphocytes Percent Auto 19.6 % (20-40); Mean Corpuscular HGB Conc 34.1 g/dl (31.0-36.0); Mean Corpuscular Hemoglobin 30.3 pg (27.0-33.0); Mean Corpuscular Volume 88.6 fL (80.0-98.0); Mean Platelet Volume 9.9 fL (9.4-12.4); Monocytes Absolute Auto 0.6 X10*3/uL (0.1-1.2); Monocytes Percent Auto 6.4 % (2-11); Neutrophils Absolute Auto 6.6 x10*3/uL (2.0-8.3); Neutrophils Percent Auto 69.2 % (45-73); Platelet Count 162 X10*3/uL (160-400); Red Blood Count 4.66 X10*6/uL (4.60-5.80); Red Cell Distribution Width 14.7 % (11.0-16.0); White Blood Count 9.6 X10*3/uL (4.8-10.8)
[2023-04-22] MEDS: Metoprolol Tartrate 5 MG/5 ML VIAL IVPUSH (01:08)
[2023-04-22 01:10] LABS: Alanine Aminotransferase 17 U/L (0-40); Albumin Level 3.4 g/dL (3.5-5.0); Alkaline Phosphatase 103 U/L (39-117); Anion Gap 16 (12-20); Aspartate Amino Transferase 26 U/L (5-37); Bilirubin Total 0.5 mg/dL (0.0-1.0); Blood Urea Nitrogen 11 mg/dL (9-16); Calcium 9.3 mg/dL (8.4-10.2); Carbon Dioxide 25 mmol/L (22-29); Chloride 103 mmol/L (96-108); Creatinine Clr Calc Pharmacy 102.2; Estimated Glomerular Filt Rate > 60; Glucose Random 108 mg/dL (60-115); Potassium 4.2 mmol/L (3.3-5.1); Sodium 140 mmol/L (135-145); Total Protein 7.5 g/dL (6.5-8.0)
[2023-04-22 01:17] LABS: Troponin-I High Sensitivity 39.8 ng/L (<3.5-35.0)
[2023-04-22] MEDS: 0.9 % Sodium Chloride 1,000 ML 999 ML IV (01:40)
[2023-04-22] MEDS: dilTIAZem HCL 50 MG/10 ML VIAL 10 MG IVPUSH (02:31)
[2023-04-22] MEDS: Digoxin 0.5 MG/2 ML AMPUL 0.25 MG IVPUSH (03:34)
[2023-04-22 04:58] LABS: B Type Natriuretic Peptide 369 pg/mL (<100)
[2023-04-22] MEDS: 0.9 % Sodium Chloride 1,000 ML 125 ML IVCONT (05:07)
--- NOTE | 2023-04-22 06:00 | P.HPHOSP_ITS ---
History of Present Illness Date of Service: 04/22/23 Chief Complaint: Fast heart rate This is a 82-year-old male with pertinent history of cortical basal degeneration, 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 Unable to obtain history from the patient due to cortical basal degeneration. He has baseline right-sided weakness and difficulty with speech. History obtained from at bedside. The stated that she takes the patient's blood pressure and heart rate twice a day before administering metoprolol. In the evening prior to presentation, she noticed that the patient heart rate was in the 140s with blood pressure in the high 80s. Patient denied palpitations or chest discomfort. No fever or chills. Has a chronic cough that has been going on for many years which is unchanged. No orthopnea or PND. No leg swelling. No shortness of breath, abdominal pain, changes in urinary or bowel habits. In the emergency department, patient was found to be hypotensive and in AFib with RVR. He was resuscitated with IV crystalloids and given IV diltiazem, IV metoprolol and IV digoxin. Review of Systems 2 Constitutional: Constitutional: Reports no additional constitutional complaints Cardiovascular: Cardiovascular: Reports no additional cardiovascular complaints Respiratory: Respiratory: Reports no additional respiratory complaints Gastrointestinal: Gastrointestinal: Reports no additional gastrointestinal complaints Genitourinary: Genitourinary: Reports no additional male genitourinary complaints [facility] Medical History Atrial flutter PAF (paroxysmal atrial fibrillation) Afib Mixed basal-squamous cell carcinoma Arthritis Cataract Hypoxemia Corticobasal degeneration Cough Pneumonitis Pulmonary fibrosis Allergic rhinitis Hypothyroid Hyperlipidemia Hypertension Surgical History H/O aortic valve repair Hx of CABG Social History Household Members: Spouse Housing: Condominium Do you presently have visiting nurse or other home services: Yes (Nurse, PT, OT, Home health aide) Patient Tobacco Use Status: Never used Tobacco e-Cigarette/Vaping Use: Never Used Advance Directives Date on File: 04/09/20 service: Yes Current occupational status: retired Meds Allergies Allergy/AdvReac Type Severity Reaction Status Date / Time meperidine [From Demerol] AdvReac Unknown Unknown Verified 04/22/23 00:20 morphine AdvReac Unknown Unknown Verified 04/22/23 00:20 pregabalin [From Lyrica CR] AdvReac Unknown Unknown Verified 04/22/23 00:20 Active Medications: Current Medications Sodium Chloride (Ns) 1,000 mls @ 125 mls/hr IVCONT .Q8H CAIN Last Admin: 04/22/23 05:07 Dose: 125 mls/hr Home Medications Medication Instructions Recorded Confirmed Last Taken Type ascorbic acid (vitamin C) 500 mg 500 mg PO DAILY 04/19/20 02/22/23 02/21/23 History capsule atorvastatin 80 mg tablet (Lipitor) 80 mg PO BEDTIME 04/19/20 02/22/23 02/21/23 History cetirizine 10 mg tablet (Zyrtec) 10 mg PO BEDTIME Allergy Symptoms 04/19/20 02/22/23 02/21/23 History cholecalciferol (vitamin D3) 50 50 mcg PO DAILY 04/19/20 02/22/23 02/21/23 History mcg (2,000 unit) capsule docusate sodium 100 mg capsule 100 mg PO DAILY 04/19/20 02/22/23 02/21/23 History vitamins A,C,W-ixty-ewftms 2,148 1 tab PO BID 04/19/20 02/22/23 02/21/23 History mcg-113 mg-45 mg-17.4 mg tablet (PreserVision AREDS) levothyroxine 88 mcg tablet 88 mcg PO DAILY@0600 07/12/22 02/22/23 02/22/23 06:00 History (Levoxyl) clobetasol 0.05 % topical cream 1 appl topical BID PRN psoriasis 01/27/23 02/22/23 Unknown History ketoconazole 2 % topical cream 1 appl topical BID PRN Rash 01/27/23 02/22/23 Unknown History zinc acetate 50 mg (zinc) capsule 50 mg PO DAILY 02/22/23 02/22/23 02/21/23 History Physical Exam 2 Vital Signs and Narrative: Vital Signs: Last Vital Signs Temp 97.9 F 04/22/23 00:26 Pulse 71 04/22/23 05:36 Resp 14 04/22/23 05:36 BP 92/59 L 04/22/23 05:36 Pulse Ox 95 04/22/23 05:36 O2 Del Method Nasal Cannula 04/22/23 05:36 O2 Flow Rate 4 04/22/23 05:36 BMI result Body Mass Index 28.7 Elderly male lying in bed in no distress Neck supple, no JVD Regular rate and rhythm, S1-S2 heard Bilateral crackles appreciated Abdomen soft nontender, no guarding, no rigidity Patient is awake, alert and oriented to self, place, time and person ; right- sided weakness and speech deficit noted Psych: Normal mood No pedal edema Results Labs 04/22/23 00:41 04/22/23 00:41 Labs: Laboratory Results - last 24 hr 04/22/23 00:41 MCV 88.6 MCH 30.3 MCHC 34.1 RDW 14.7 Plt Count 162 MPV 9.9 Immature Gran % (Auto) 0.2 Neut % (Auto) 69.2 Lymph % (Auto) 19.6 L [place] % (Auto) 6.4 Eos % (Auto) 4.3 H Baso % (Auto) 0.3 Lymph # (Auto) 1.9 [place] # (Auto) 0.6 Eos # (Auto) 0.4 Baso # (Auto) 0.0 Abs Immat Gran (auto) 0.02 Absolute Neuts (auto) 6.6 Absolute Nucleated RBC 0.000 Nucleated RBC % (auto) 0.0 Anion Gap 16 Estim Creat Clear Calc 102.2 Estimated GFR > 60 Random Glucose 108 Calcium 9.3 Total Bilirubin 0.5 AST 26 ALT 17 Alkaline Phosphatase 103 Troponin I High Sens 39.8 H B-Natriuretic Peptide 369 H Total Protein 7.5 Albumin 3.4 L Imaging Radiologist's Impressions: Impressions Chest X-Ray 04/22/23 04:12 IMPRESSION: Persistent patchy bilateral airspace opacities, right greater than left, likely superimposed on underlying chronic interstitial lung disease. Appearance could reflect edema versus infectious etiology. Probable small right pleural effusion. Assessment and Plan (1) Atrial fibrillation with rapid ventricular response: Status: Acute Plan This is a 82-year-old male with pertinent history of cortical basal degeneration, 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 #. Afib with RVR and hypotension: Resuscitated with IV crystalloids in the ER with improvement in blood pressure. Patient received IV digoxin, IV metoprolol and IV diltiazem in the ER. Converted to normal sinus rhythm in the ER. Will admit patient for observation with cardiac monitoring. Consulted Cardiology to optimize. Hold p.o. metoprolol in the setting of low blood pressure. Continue Eliquis #. Hypothyroidism: On levothyroxine #. Mixed hyperlipidemia: On statin #. Chronic hypoxemic resp failure due to pulm fibrosis: On chronic 02. #. Congestive heart failure with preserved ejection fraction: Not on diuretics. DVT prophylaxis: Josefa DNR/DNI. Discussed with at bedside Quality Stroke Does the patient have a stroke diagnosis?: No VTE Prior VTE?: No VTE Risk Level:: Medical - moderate - high VTE Device Contraindication: Treatment Not Indicated VTE Drug Contraindication: N/A - Med Ordered
[2023-04-22 06:10] LABS: COVID-19 Test Negative (Negative); IDNOW Serial# 6674DD1D
[2023-04-22 06:13] LABS: Lactic Acid 1.7 mmol/L (0.5-2.0)
[2023-04-22] MEDS: 0.9 % Sodium Chloride Flush 3 ML SYRINGE IVFLUSH (08:10)
--- NOTE | 2023-04-22 08:10 | PC.NURSE ---
this RN resumed care of pt at this time. vss and up to date. nsr on the athletic monitor. pt denies pain. has no complaints. pt repositioned in bed after finishing 100% of breakfast tray. pillow placed in between pt's knees to promote comfort. no sob/wob noted. respirations even and unlabored. pt waiting to be admitted upstairs. plan of care ongoing. call marie placed within reach.
--- NOTE | 2023-04-22 08:33 | PHA.MEDREC ---
Pharmacy Consult ? Medication Reconciliation Pharmacy has completed the medication reconciliation. Spoke to patients , She seems to be the one to take care of patients medications. She stated patient has a hard time swallowing so medications are limited to those of most priority. She stated patient only takes half of his atorvastatin (40 mg) and half metoprolol (12.5 mg). Patient was on several creams for scalp psoriasis but has since cleared.
--- NOTE | 2023-04-22 08:48 | ECG_ITS ---
Test Reason : AFIB Blood Pressure : / mmHG Vent. Rate : 137 BPM Atrial Rate : 000 BPM P-R Int : 000 ms QRS Dur : 128 ms QT Int : 338 ms P-R-T Axes : 000 002 198 degrees QTc Int : 510 ms Undetermined rhythm - possible atrial flutter Left bundle branch block Abnormal ECG When compared with ECG of 23-FEB-2023 10:13, Rhythm change Vent. rate has increased BY 63 BPM Referred By: Contreras Guillaume Electronically Signed By:JOSIAH MAGAÑA
--- NOTE | 2023-04-22 08:52 | ECG_ITS ---
Test Reason : AFIB Blood Pressure : / mmHG Vent. Rate : 073 BPM Atrial Rate : 073 BPM P-R Int : 232 ms QRS Dur : 130 ms QT Int : 416 ms P-R-T Axes : 023 004 188 degrees QTc Int : 458 ms Sinus rhythm with 1st degree A-V block with Premature supraventricular complexes Left bundle branch block Abnormal ECG When compared with ECG of 22-APR-2023 00:24, Rhythm change Vent. rate has decreased BY 64 BPM Referred By: Contreras Guillaume Electronically Signed By:JOSIAH MAGAÑA
[2023-04-22] MEDS: Apixaban 5 MG TABLET PO ×2 (08:56→20:55)
--- NOTE | 2023-04-22 10:31 | MHC.CM.PN ---
CM spoke with /HCP/Jessica @ [phone]; Patient unable to provide information. 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 CM has initiated and will follow for dc planning.Patient will need a [place] BLS transport arranged for him at time of dc. PCP is Dr. Rosales Ramirez but Patient is in the process of transitioning to [place] [facility].
[2023-04-22] MEDS: Metoprolol Tartrate 25 MG TABLET PO ×2 (11:10→20:55)
[2023-04-22] MEDS: Levothyroxine Sodium 88 MCG TABLET PO (11:10)
[2023-04-22] MEDS: Cholecalciferol (Vitamin D3) 25 MCG TABLET 50 MCG PO (11:10)
--- NOTE | 2023-04-22 11:12 | PC.NURSE ---
delay in medication administration d/t medication not being verified by pharmacy. medication now administered per provider order. pt remains nsr on the neurology physician assistant. resting comfortably in no apparent distress w/ the lights dimmed. respirations remain even and unlabored. waiting for bed assignment at this time. call marie placed within reach.
--- NOTE | 2023-04-22 14:05 | PM.EVENT ---
Event Note Date of Service: 04/22/23 Event Note: The patient was seen and examined, with his labs and medications reviewed. He has a history of AFIB and is currently on Eliquis. He presented with tachycardia, low blood pressure, and was in AFIB with RVR, necessitating IV metoprolol and cardizem, along with IV fluid administration, resulting in heart rate control and improvement in blood pressure. There was no clinical evidence of infection or sepsis. A chest X-ray revealed heart failure, accompanied by elevated BNP. However, due to hypotension and the absence of shortness of breath, a diuretic was not administered at that time. Presently, the patient is breathing comfortably, with controlled heart rate. If any signs of symptomatic heart failure emerge, diuretics will be administered as long as blood pressure remains stable and a cardiology consultation will be obtained should the patient's condition change. Med rec completed Time Spent With Patient Time: Total time managing care of this patient today ____ minutes.
--- NOTE | 2023-04-22 17:51 | PC.NURSE ---
vss and up to date at this time. nsr on the property assessment monitor. pt remains on 4L via NC at this time - resting at 96%. no sob/wob noted. respirations remain even and unlabored. pt continues to wait for bed assignment at this time. denies pain. has no complaints. bedside for support. call marie placed within reach.
[2023-04-22] MEDS: Loratadine 10 MG TABLET PO (20:55)
[2023-04-22] MEDS: Atorvastatin Calcium 40 MG TABLET PO (20:55)
[2023-04-23 03:35] VITALS: BP 103/55; PULSE 63; RESP 20; TEMP 36.9; O2SAT 97
[2023-04-23 06:44] LABS: MANUAL DIFF FLAG NO
[2023-04-23 06:50] LABS: Basophils Percent Auto 0.2 % (0-2); Eosinophils Absolute Auto 0.5 X10*3/uL (0.0-0.4); Eosinophils Percent Auto 5.3 % (0-4); Hematocrit 35.6 % (42.0-52.0); Hemoglobin 12.1 g/dl (14.0-18.0); Imm Gran Abs Auto 0.03 X10*3/uL (0.00-0.03); Imm Gran Pct Auto 0.3 % (0.0-0.4); Lymphocytes Absolute Auto 1.7 X10*3/uL (1.2-4.9); Lymphocytes Percent Auto 18.3 % (20-40); Mean Corpuscular Hemoglobin 30.6 pg (27.0-33.0); Mean Corpuscular Volume 89.9 fL (80.0-98.0); Monocytes Absolute Auto 0.6 X10*3/uL (0.1-1.2); Monocytes Percent Auto 5.9 % (2-11); Neutrophils Absolute Auto 6.5 x10*3/uL (2.0-8.3); Platelet Count 163 X10*3/uL (160-400); Red Blood Count 3.96 X10*6/uL (4.60-5.80); Red Cell Distribution Width 14.8 % (11.0-16.0); White Blood Count 9.3 X10*3/uL (4.8-10.8)
[2023-04-23] MEDS: Levothyroxine Sodium 88 MCG TABLET PO (06:54)
[2023-04-23 07:16] LABS: Anion Gap 11 (12-20); Blood Urea Nitrogen 11 mg/dL (9-16); Calcium 8.6 mg/dL (8.4-10.2); Carbon Dioxide 24 mmol/L (22-29); Chloride 103 mmol/L (96-108); Creatinine Clr Calc Pharmacy 96.3; Estimated Glomerular Filt Rate > 60; Glucose Random 91 mg/dL (60-115); Potassium 3.5 mmol/L (3.3-5.1); Sodium 134 mmol/L (135-145)
[2023-04-23 07:32] VITALS: BP 117/65; PULSE 56; RESP 18; TEMP 36.3; O2SAT 96
--- NOTE | 2023-04-23 09:45 | P.PNIM_ITS ---
Subjective Subjective Date of Service: 04/23/23 Interval History: Overall better, HR is controlled Physical Exam 2 Vital Signs: Vital Signs: Last Vital Signs Temp 97.4 F 04/23/23 07:32 Pulse 56 04/23/23 07:32 Resp 18 04/23/23 07:32 BP 117/65 04/23/23 07:32 Pulse Ox 96 04/23/23 07:32 O2 Del Method Nasal Cannula 04/23/23 07:32 O2 Flow Rate 4 04/23/23 07:32 BMI result Body Mass Index 24.1 General: AO X 3, no acute distress Resp: rales at bases CVS: S1,S2, iregular iregular GI: +BS, NT, no distention Skin: No rash Neuro: motor grossly intact Psych: appropriate affect Objective Data Active Medications Acetaminophen (Acetaminophen 325 Mg Tablet) 650 mg PO Q6H PRN PRN Reason: Pain, Mild (Pain Scale 1-3) Apixaban (Apixaban 5 Mg Tablet) 5 mg PO BID [facility] Last Admin: 04/22/23 20:55 Dose: 5 mg Documented By: RAMON Atorvastatin Calcium (Atorvastatin Calcium 40 Mg Tablet) 40 mg PO BEDTIME [facility] Last Admin: 04/22/23 20:55 Dose: 40 mg Documented By: RAMON Levothyroxine Sodium (Levothyroxine Sodium 88 Mcg Tablet) 88 mcg PO DAILY@0600 [facility] Last Admin: 04/23/23 06:54 Dose: 88 mcg Documented By: SUSAN Loratadine (Loratadine 10 Mg Tablet) 10 mg PO BEDTIME [facility] Last Admin: 04/22/23 20:55 Dose: 10 mg Documented By: RAMON Melatonin (Melatonin 3 Mg Tablet) 6 mg PO BEDTIME PRN PRN Reason: Insomnia Metoprolol Tartrate (Metoprolol Tartrate 25 Mg Tablet) 25 mg PO BID [facility]; Protocol Last Admin: 04/22/23 20:55 Dose: 25 mg Documented By: RAMON Ondansetron HCl (Ondansetron Hcl 4 Mg/2 Ml Vial) 4 mg IVPUSH Q8H PRN PRN Reason: Nausea and Vomiting Sodium Chloride (0.9 % Sodium Chloride Flush 3 Ml Syringe) 3 ml IVFLUSH QSHIFT [facility] Last Admin: 02/27/24 22:45 Dose: Not Given Documented By: SUSAN Non-Admin Reason: Previously Administered Vitamin D (Cholecalciferol (Vitamin D3) 25 Mcg Tablet) 50 mcg PO DAILY [facility] Last Admin: 04/22/23 11:10 Dose: 50 mcg Documented By: DANYELLE Labs 04/23/23 06:20 04/23/23 06:41 Labs: Laboratory Results - last 24 hr 04/23/23 04/23/23 06:20 06:41 MCV 89.9 MCH 30.6 MCHC 34.0 RDW 14.8 Plt Count 163 MPV 10.0 Immature Gran % (Auto) 0.3 Neut % (Auto) 70.0 Lymph % (Auto) 18.3 L Metcalfe % (Auto) 5.9 Eos % (Auto) 5.3 H Baso % (Auto) 0.2 Lymph # (Auto) 1.7 Metcalfe # (Auto) 0.6 Eos # (Auto) 0.5 H Baso # (Auto) 0.0 Abs Immat Gran (auto) 0.03 Absolute Neuts (auto) 6.5 Absolute Nucleated RBC 0.000 Nucleated RBC % (auto) 0.0 Anion Gap 11 L Estim Creat Clear Calc 96.3 Estimated GFR > 60 Random Glucose 91 Calcium 8.6 D Microbiology Microbiology Results: Microbiology 04/22/23 06:18 Blood Culture - Preliminary Blood - Venous No growth after 24 hours. 04/22/23 05:49 Blood Culture - Preliminary Blood - Venous No growth after 24 hours. 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 Afib with RVR and hypotension, resolved Hypotension --resolved with IVF Hypothyroidism: On levothyroxine Mixed hyperlipidemia: On statin Chronic hypoxemic resp failure due to pulm fibrosis: On chronic 02. Congestive heart failure with preserved ejection fraction: IV Lasix x 1 today DVT prophylaxis: Eliquis DNR/DNI. Discussed with at bedside consider dc later today Quality Stroke Does the patient have a stroke diagnosis?: No VTE Prior VTE?: No VTE Risk Level:: Medical - moderate - high VTE Device Contraindication: Treatment Not Indicated VTE Drug Contraindication: N/A - Med Ordered
[2023-04-23] MEDS: Cholecalciferol (Vitamin D3) 25 MCG TABLET 50 MCG PO (10:23)
[2023-04-23] MEDS: Apixaban 5 MG TABLET PO ×2 (10:23→20:28)
[2023-04-23] MEDS: Metoprolol Tartrate 25 MG TABLET PO (10:23)
[2023-04-23] MEDS: Furosemide 40 MG/4 ML VIAL IVPUSH (10:23)
[2023-04-23] MEDS: 0.9 % Sodium Chloride Flush 3 ML SYRINGE IVFLUSH ×2 (10:24→20:29)
[2023-04-23 11:09] VITALS: BP 113/60; PULSE 61; RESP 18; TEMP 36.4; O2SAT 98
[2023-04-23 13:37] VITALS: BMI 26.8
--- NOTE | 2023-04-23 13:42 | MHC.CLN ---
RE: CONSULT PT WITH INCREASED NUTRITION RISK R/T PROLONGED CATABOLIC ILLNESS SPOKE WITH PT'S WHO EXPLAINED PT WITH OVERALL DECLINE IN WT AND PO INTAKE SINCE DEC 2022-EXPECTED R/T CORTICOBASIL DEGENERATION DZ PT REMAINS SLIGHTLY OVER WT FOR HT-NO S/S MALNUTRITION AT THIS TIME DIET RX: CARDIAC CHOPPED-APPROPRIATE PT RECEPTIVE TO DRINKING ENSURE [place] TO INCREASE KCALS SUPP TO PROVIDE 700KCALS, 40G PROTEIN NOTED STAGE 1 PRESSURE COCCYX/HEELS MONITOR PO INTAKE AND ENCOURAGE SUPPLEMENT
[2023-04-23 15:36] VITALS: BP 106/60; PULSE 61; RESP 18; TEMP 36.2; O2SAT 96
--- NOTE | 2023-04-23 16:26 | HO.WOUND ---
Wound Consult: Initial 82yr old?M admitted to [facility] on 04/22/23 - See progress notes and H&P for detailed history.? Wound consult placed for Buttock redness and heels.? Patient and agreeable to assessment and photo documentation.? Of note the buttock and sacrum were not assessed as the direct care nurse recently applied a foam dressing in place and the patient was just repositioned - will defer assessment to future date and or time. Of note the patient has barrier cream in place, sacral foam dressing in place, Low Air Loss Mattress in place and Blue heel care boots in place. The right lateral malleolous and heel were assessed - intact blanchable redness noted. Foam dressings applied and placed back in the blue heelcare boots - however given patient calf circumference there is not enough girth to provide off loading to the heel - recommend Srtyker off loading boots - will have sent from storeroom for application. Will follow up tomorrow for continued assessment. Recommendations: 1. Turn and Reposition every 2 hours and as needed for patient comfort.? Use pillows or wedges to support off loading positions. 2. Off Load all bony prominences with use of pillows and heel boots if needed.? Apply Preventative foams where needed. ? 3. Monitor for incontinence and moisture control, use barrier creams when needed for prevention and treatment. 4. Provide adequate and supplemental nutrition.? Nutrition following. 5. Continue low air loss mattress. Re-consult wound care Nurse for wound deterioration or wound changes.
[2023-04-23] MEDS: Acetaminophen 325 MG TABLET 650 MG PO (18:47)
[2023-04-23 19:16] VITALS: BP 102/58; PULSE 51; RESP 18; TEMP 36.9; O2SAT 98
[2023-04-23] MEDS: Melatonin 3 MG TABLET 6 MG PO (20:28)
[2023-04-23] MEDS: Atorvastatin Calcium 40 MG TABLET PO (20:28)
[2023-04-23] MEDS: Loratadine 10 MG TABLET PO (20:28)
[2023-04-23 23:12] VITALS: BP 101/54; PULSE 60; RESP 20; TEMP 36.7; O2SAT 97
[2023-04-24 03:01] VITALS: BP 113/63; PULSE 62; RESP 20; TEMP 36.2; O2SAT 97
[2023-04-24] MEDS: Levothyroxine Sodium 88 MCG TABLET PO (05:15)
--- NOTE | 2023-04-24 07:00 | CA_ITS ---
Transthoracic Echocardiogram Patient (Last, First, Middle): Cruzito Godoy L Gender: Male Date of : 1940 Age: 82 Procedure Date: 04/24/2023 Procedure Type: Transthoracic Echocardiogram Location: [facility] [place] Height: 177.8 cm Weight: 84.37 kg BSA: 2.02 m2 Heart Rate: bpm BP: 111 / 56 mmHg Pattern Carrier: KAT Referring MD: Mendez Oneill MD Symptoms: heart failure, afib Study Quality: Fair/Contrast ECG Rhythm: Sinus Conclusions: - The left ventricular systolic function is normal. The visually estimated ejection fraction is between 55-60%. - A bioprosthetic aortic valve is present. The prosthetic aortic valve appears to be functioning normally. - There is severe mitral annular calcification. Findings Procedure Information Contrast agent, definity, is being given per protocol without apparent complications. Left Ventricle Normal left ventricular cavity size. There is mildly increased left ventricular wall thickness. The left ventricular systolic function is normal. The visually estimated ejection fraction is between 55-60%. There is no evidence of regional wall motion abnormalities. Diastolic function is normal for age. Right Ventricle The right ventricle was not well visualized. Atria The left atrium is mildly dilated. The right atrium was not well visualized. Aortic Valve A bioprosthetic aortic valve is present. The prosthetic aortic valve appears to be functioning normally. There is no aortic valve regurgitation. Mitral Valve There is severe mitral annular calcification. There is no mitral valve regurgitation. There is no mitral valve stenosis. Pulmonic Valve The pulmonic valve is likely normal. Tricuspid Valve Normal tricuspid valve structure. There is mild tricuspid valve regurgitation. There is no evidence of pulmonary hypertension. Great Vessels The asc aorta is normal in size. Venous The inferior vena cava was not well visualized. Pericardium/Pleural There is no evidence of pericardial effusion. Prior Study Comparison No significant change compared to prior study dated: 07/12/2022. Measurements 2D Linear Measurements IVSd: 1.20 0.6-0.9/0.6-1.0 cm LVIDd: 3.25 3.9-5.3/4.2-5.9 cm LVIDd Index: 1.61 2.4-3.2/2.2-3.1 cm/m2 LVIDs: 2.02 2.0-3.6 cm LVPWd: 1.05 0.7-1.1 cm LA Diam: 4.20 2.7-3.8/3.0-4.0 cm LAIDs Index: 2.08 1.5-2.3 cm/m2 LV Mass: 137.33 67-162/88-224 g LV Mass Index: 67.98 43-95/49-115 g/m2 LVOT Diam: 1.80 3.0+(-)1.3 cm 2D Systolic Function EF 4C: 56.10 >55% Mitral Valve MV VTI: 0.23 MV Pk Yang: 0.93 MV Mn Yang: 0.48 MV Pk Grad: 3.00 MV Mn Grad: 1.00 MV Pk E: 0.79 MV Decel Time: 216.00 E'Lateral: 5.61 E'Medial: 4.13 E/E' Med: 19.20 E/E' Lat: 14.10 PHT: 64.00 MVA PHT: 3.44 MVA Continuity: 3.18 Decel Henderson: 3.90 Aortic Valve AoV Pk Yang: 2.38 AoV Mn Yang: 1.65 AoV VTI: 0.55 AoV Pk Grad: 23.00 Aov Mn Grad: 13.00 MAUREEN Cont.VTI: 1.34 LVOT LVOT Pk Yang: 1.28 LVOT Mn Yang: 0.94 LVOT VTI: 0.29 LVOT Pk Grad: 7.00 LVOT Mn Grad: 4.00 LVOT Diam: 1.80 LVOT Area: 2.54 Diastolic Function MV Pk E: 0.79 E'Medial: 4.13 E/E' Med: 19.20 E' Laterial: 5.61 E/E' Lat: 14.10 Right Ventricle TVS' Yang: 7.72 Tricuspid Valve TR Pk Yang: 2.23 TR Pk Grad: 20.00 Great Vessels Aorta Sinus of Valsalva: 3.50 2.0-3.5 cm Ao Asc: 3.50 2.1-3.4 cm Pulmonary Valve PV Pk Yang: 1.32 Peak PV Grad: 7.00 Updated in Other Vendor System with Status of Final Jesse Swanson MD electronically signed on 04/24/2023 9:12:42 AM with status of Final
[2023-04-24 08:00] VITALS: BP 111/56; PULSE 54; RESP 15; TEMP 36.4; O2SAT 97
[2023-04-24 08:28] LABS: Anion Gap 12 (12-20); Blood Urea Nitrogen 13 mg/dL (9-16); Calcium 9.1 mg/dL (8.4-10.2); Carbon Dioxide 29 mmol/L (22-29); Chloride 102 mmol/L (96-108); Creatinine Clr Calc Pharmacy 91.7; Estimated Glomerular Filt Rate > 60; Glucose Random 95 mg/dL (60-115); Potassium 3.8 mmol/L (3.3-5.1); Sodium 139 mmol/L (135-145)
[2023-04-24] MEDS: 0.9 % Sodium Chloride Flush 3 ML SYRINGE IVFLUSH ×2 (09:26→17:16)
[2023-04-24] MEDS: Furosemide 40 MG TABLET PO (09:26)
[2023-04-24] MEDS: Metoprolol Tartrate 25 MG TABLET PO (09:26)
[2023-04-24] MEDS: Cholecalciferol (Vitamin D3) 25 MCG TABLET 50 MCG PO (09:26)
[2023-04-24] MEDS: Apixaban 5 MG TABLET PO ×2 (09:26→23:08)
--- NOTE | 2023-04-24 09:58 | P.CONCA_ITS ---
History of Present Illness History of Present Illness Date of Service: 04/24/23 Chief complaint: Tachycardia Narrative: This is a cardiology consultation regarding atrial fibrillation rapid rate. Patient was recently in the hospital for atrial flutter with rapid rate. At that time, he was taking carvedilol and we switch that to metoprolol. He has a progressive neurological disease and essentially bed-bound. states that his metoprolol dose has been cut back to 12.5 mg b.i.d. by his PCP as he frequently runs bradycardic as low as the 30s. Anyway, his heart rate was again fast into the 140s and that led to the hospital visit and admission. With regard to his neurological condition, suspected to be progressive. Essentially patient needs help for everything. He does not really report any major symptoms. Review of Systems 2 Review of Systems: Yes all other systems are reviewed and are negative Constitutional: Constitutional: Reports as per HPI and Reports no additional constitutional complaints Eyes: Eyes: Reports as per HPI and Denies no additional eye complaints ENT: Denies system reviewed and no additional complaints, except as documented and Reports as per HPI Cardiovascular: Cardiovascular: Reports as per HPI, Reports no additional cardiovascular complaints, Denies acrocyanosis, Denies cool extremities, Denies chest pain, Denies leg edema, Denies lightheadedness, Denies palpitations and Denies dyspnea Respiratory: Respiratory: Reports as per HPI, Denies no additional respiratory complaints and Denies dyspnea Gastrointestinal: Gastrointestinal: Reports as per HPI and Denies no additional gastrointestinal complaints Genitourinary: Genitourinary: Reports no additional male genitourinary complaints and Reports as per HPI Musculoskeletal: Musculoskeletal: Reports no additional musculoskeletal complaints and Reports as per HPI Integumentary/Breasts: Skin/Breast: Reports system reviewed and no additional complaints, except as docu Neurologic: Reports system reviewed and no additional complaints, except as documented and Reports as per HPI Psychiatric: Psychiatric: Reports no additional psychiatric complaints and Reports as per HPI Endocrine: Endocrine: Reports no additional endocrine complaints, Reports as per HPI and Denies palpitations Hematologic/Lymphatic: Hematologic/Lymphatic: Reports no additional hematologic/lymphatic complaints and Reports as per HPI Allergic/Immunologic: Allergic/Immunologic: Reports no additional allergic/immunologic complaints and Reports as per HPI [facility] Past Medical History Medical History Atrial flutter PAF (paroxysmal atrial fibrillation) Afib Mixed basal-squamous cell carcinoma Arthritis Cataract Hypoxemia Corticobasal degeneration Cough Pneumonitis Pulmonary fibrosis Allergic rhinitis Hypothyroid Hyperlipidemia Hypertension Family History Pertinent family history: No pertinent family history Surgical History Surgical History H/O aortic valve repair Hx of CABG Social History Social History Household Members: Spouse Housing: Condominium Do you presently have visiting nurse or other home services: Yes ([place] [facility], [facility]) Patient Tobacco Use Status: Never used Tobacco Smoked in Last 30 Days: No e-Cigarette/Vaping Use: Never Used Use of substances other than those prescribed or required for medical reasons: No Currently Displaying Signs/Symptoms of Drug Intoxication Withdrawal: No Have you been hit, kicked, punched, or otherwise hurt by someone within the past year? If so, by whom?: No Do you feel safe in your current relationship?: Yes Is there a partner from a previous relationship who is making you feel unsafe now?: No Are you made to feel afraid or neglected: No Advance Directives: Yes Advance Directives on File: Yes Advance Directives Date on File: 04/09/20 Do you have thoughts of harming others: None Do you have a plan to hurt others: No Plan Recently lost weight without trying: Yes How much weight loss: 34pounds or more Eating poorly because of decreased appetite: Yes Nutrition screen score: 7 Nutrition Risks: Difficulty swallowing and On aspiration precautions service: Yes Current occupational status: retired Meds Allergies Allergy/AdvReac Type Severity Reaction Status Date / Time meperidine [From Demerol] AdvReac Unknown Vomiting Verified 04/22/23 23:15 morphine AdvReac Unknown Vomiting Verified 04/22/23 23:16 pregabalin [From Lyrica CR] AdvReac Unknown Vomiting Verified 04/22/23 23:16 Active Medications: Current Medications Acetaminophen (Acetaminophen 325 Mg Tablet) 650 mg PO Q6H PRN PRN Reason: Pain, Mild (Pain Scale 1-3) Last Admin: 04/23/23 18:47 Dose: 650 mg Apixaban (Apixaban 5 Mg Tablet) 5 mg PO BID [facility] Last Admin: 04/24/23 09:26 Dose: 5 mg Atorvastatin Calcium (Atorvastatin Calcium 40 Mg Tablet) 40 mg PO BEDTIME [facility] Last Admin: 04/23/23 20:28 Dose: 40 mg Furosemide (Furosemide 40 Mg Tablet) 40 mg PO DAILY [facility]; Protocol Last Admin: 04/24/23 09:26 Dose: 40 mg Levothyroxine Sodium (Levothyroxine Sodium 88 Mcg Tablet) 88 mcg PO DAILY@0600 [facility] Last Admin: 04/24/23 05:15 Dose: 88 mcg Loratadine (Loratadine 10 Mg Tablet) 10 mg PO BEDTIME [facility] Last Admin: 04/23/23 20:28 Dose: 10 mg Melatonin (Melatonin 3 Mg Tablet) 6 mg PO BEDTIME PRN PRN Reason: Insomnia Last Admin: 04/23/23 20:28 Dose: 6 mg Metoprolol Tartrate (Metoprolol Tartrate 25 Mg Tablet) 25 mg PO BID [facility]; Protocol Last Admin: 04/24/23 09:26 Dose: 25 mg Ondansetron HCl (Ondansetron Hcl 4 Mg/2 Ml Vial) 4 mg IVPUSH Q8H PRN PRN Reason: Nausea and Vomiting Sodium Chloride (0.9 % Sodium Chloride Flush 3 Ml Syringe) 3 ml IVFLUSH QSHIFT [facility] Last Admin: 04/24/23 09:26 Dose: 3 ml Vitamin D (Cholecalciferol (Vitamin D3) 25 Mcg Tablet) 50 mcg PO DAILY [facility] Last Admin: 04/24/23 09:26 Dose: 50 mcg Home Medications Medication Instructions Recorded Confirmed Last Taken Type atorvastatin 80 mg tablet (Lipitor) 40 mg PO BEDTIME 04/19/20 04/22/23 02/21/23 History cetirizine 10 mg tablet (Zyrtec) 10 mg PO BEDTIME Allergy Symptoms 04/19/20 04/22/23 02/21/23 History cholecalciferol (vitamin D3) 50 50 mcg PO DAILY 04/19/20 04/22/23 02/21/23 History mcg (2,000 unit) capsule levothyroxine 88 mcg tablet 88 mcg PO DAILY@0600 07/12/22 04/22/23 02/22/23 06:00 History (Levoxyl) zinc acetate 50 mg (zinc) capsule 50 mg PO DAILY 02/22/23 04/22/23 02/21/23 History metoprolol tartrate 25 mg tablet 12.5 mg PO BID 04/22/23 04/22/23 Unknown History Physical Exam 2 Vital Signs: Vital Signs: Last Vital Signs Temp 97.5 F 04/24/23 08:00 Pulse 54 04/24/23 08:00 Resp 15 04/24/23 08:00 BP 111/56 L 04/24/23 08:00 Pulse Ox 97 04/24/23 08:00 O2 Del Method Nasal Cannula 04/24/23 08:00 O2 Flow Rate 3 04/24/23 08:00 BMI result Body Mass Index 26.8 Const: General: comfortable and no acute distress O rientation/consciousness: patient oriented x3 HEENT: Other: Unremarkable Head: Yes normal to inspection Neck: Neck: Yes normal visual inspection Chest: Chest palpation & inspection: normal inspection of the chest Resp: Auscultation: crackles Cardio: Palpation: normal PMI Heart sounds: S1 normal heart sound present, S2 normal heart sound present, no gallops, no murmurs and no rubs GI: Palpation (GI): Soft to palpation Back/Spine/Pelvis: Other: unremarkable Skin: General skin exam: no rashes or lesions noted Neuro: General: patient oriented x3 Extrem: General: Yes normal to inspection Psych: Mental Status: mental status grossly normal Objective Labs and Meds 04/23/23 06:20 04/24/23 07:54 Lab results: Laboratory Results - last 24 hr 04/24/23 07:54 Hold Purple Top SEE NOTE Sodium 139 Potassium 3.8 Chloride 102 Carbon Dioxide 29 Anion Gap 12 BUN 13 Creatinine 0.63 Estim Creat Clear Calc 91.7 Estimated GFR > 60 Random Glucose 95 Calcium 9.1 ECG Interpretation: EKG from suggestive of atrial flutter with rapid rate with a left bundle- branch block pattern. In the subsequent EKG, sinus rhythm. There is conduction system disease as he is got KS prolongation as well as LBBB. Assessment and Plan (1) Atrial flutter with rapid ventricular response: Status: Resolved (2) Sinus bradycardia: Status: Acute (3) Left bundle branch block: Status: Acute (4) Pulmonary fibrosis: Status: Acute (5) Bedbound: Status: Acute Plan Essentially recurrent admissions for atrial flutter with rapid response but also coexistent conduction system disease with sinus bradycardia. Blood pressure also runs lowish. On the background has pulmonary fibrosis and advanced neurological disease and bed-bound. Overall, limited options. His lifespan is also likely limited considering his comorbidities. Even though amiodarone might lead to pulmonary fibrosis or make the pulmonary fibrosis worse, it may be reasonable option in someone like him with very limited life expectancy and where the main goal is to just keep out of the hospital. We discussed this in detail today and the accepts the fact that staying at home is more important than anything else. Hence after discussing all the pros and cons of amiodarone in someone with pre- existing pulmonary fibrosis, we accepted that it can be used with the sole purpose of avoiding admissions for atrial flutter. With regard to his overall health, seems declining per and hence she will look into hospice through the [place]. we also discussed about that as well. Low-grade troponins of no consequence in someone like him. Discussed with Dr. Oneill. Procedures Date of Service Date of Service: 04/24/23
--- NOTE | 2023-04-24 10:29 | HO.PM.IMPN ---
Subjective Subjective Date of Service: 04/24/23 Interval History: HR is controlled, his breathing is comfortable. He diuressed 1200 cc with Lasix yesterday Physical Exam Vital Signs: Vital Signs: Last Vital Signs Temp 97.5 F 04/24/23 08:00 Pulse 54 04/24/23 08:00 Resp 15 04/24/23 08:00 BP 111/56 L 04/24/23 08:00 Pulse Ox 97 04/24/23 08:00 O2 Del Method Nasal Cannula 04/24/23 08:00 O2 Flow Rate 3 04/24/23 08:00 BMI result Body Mass Index 26.8 General: alert, no distres Resp: CTA bilateral CVS: ireular iregular GI: +BS, NT, no distention Skin: No rash Neuro: motor grossly intact Psych: appropriate affect Objective Data Active Medications Acetaminophen (Acetaminophen 325 Mg Tablet) 650 mg PO Q6H PRN PRN Reason: Pain, Mild (Pain Scale 1-3) Last Admin: 04/23/23 18:47 Dose: 650 mg Documented By: SARAHI Amiodarone HCl (Amiodarone Hcl 200 Mg Tablet) 400 mg PO BID [facility] Apixaban (Apixaban 5 Mg Tablet) 5 mg PO BID [facility] Last Admin: 04/24/23 09:26 Dose: 5 mg Documented By: TYLER Atorvastatin Calcium (Atorvastatin Calcium 40 Mg Tablet) 40 mg PO BEDTIME [facility] Last Admin: 04/23/23 20:28 Dose: 40 mg Documented By: JULIENNE Furosemide (Furosemide 40 Mg Tablet) 40 mg PO DAILY [facility]; Protocol Last Admin: 04/24/23 09:26 Dose: 40 mg Documented By: TYLER Levothyroxine Sodium (Levothyroxine Sodium 88 Mcg Tablet) 88 mcg PO DAILY@0600 [facility] Last Admin: 04/24/23 05:15 Dose: 88 mcg Documented By: JONO Loratadine (Loratadine 10 Mg Tablet) 10 mg PO BEDTIME [facility] Last Admin: 04/23/23 20:28 Dose: 10 mg Documented By: JULIENNE Melatonin (Melatonin 3 Mg Tablet) 6 mg PO BEDTIME PRN PRN Reason: Insomnia Last Admin: 04/23/23 20:28 Dose: 6 mg Documented By: JULIENNE Metoprolol Tartrate (Metoprolol Tartrate 25 Mg Tablet) 25 mg PO BID [facility]; Protocol Last Admin: 04/24/23 09:26 Dose: 25 mg Documented By: TYLER Ondansetron HCl (Ondansetron Hcl 4 Mg/2 Ml Vial) 4 mg IVPUSH Q8H PRN PRN Reason: Nausea and Vomiting Sodium Chloride (0.9 % Sodium Chloride Flush 3 Ml Syringe) 3 ml IVFLUSH QSHIFT [facility] Last Admin: 04/24/23 09:26 Dose: 3 ml Documented By: TYLER Vitamin D (Cholecalciferol (Vitamin D3) 25 Mcg Tablet) 50 mcg PO DAILY [facility] Last Admin: 04/24/23 09:26 Dose: 50 mcg Documented By: TYLER Labs 04/23/23 06:20 04/24/23 07:54 Labs: Laboratory Results - last 24 hr 04/24/23 07:54 Hold Purple Top SEE NOTE Anion Gap 12 Estim Creat Clear Calc 91.7 Estimated GFR > 60 Random Glucose 95 Calcium 9.1 Microbiology Microbiology Results: Microbiology 04/22/23 06:18 Blood Culture - Preliminary Blood - Venous No growth after 48 hours. 04/22/23 05:49 Blood Culture - Preliminary Blood - Venous No growth after 48 hours. 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 Afib with RVR and hypotension. HR is controlled, but in general flutuates alot according to the . Cardiology is advising amio as detailed in Dr. Swanson note. Continue Metoprolol today but DC at discharge tomorrow Heart failure--undertermined, no prior echo, Lasix IV yesterday, change to PO today Hypotension --resolved with IVF Hypothyroidism: On levothyroxine Mixed hyperlipidemia: On statin Chronic hypoxemic resp failure due to pulm fibrosis: On chronic 02. Congestive heart failure with preserved ejection fraction: IV Lasix x 1 today DVT prophylaxis: Eliquis DNR/DNI. Overall poor prognosis and will look [facility] later today Quality Stroke Does the patient have a stroke diagnosis?: No VTE Prior VTE?: No VTE Risk Level:: Medical - moderate - high VTE Device Contraindication: Treatment Not Indicated VTE Drug Contraindication: N/A - Med Ordered
[2023-04-24] MEDS: Acetaminophen 325 MG TABLET 650 MG PO (10:52)
[2023-04-24] MEDS: Amiodarone HCL 200 MG TABLET 400 MG PO (10:53)
[2023-04-24 11:56] VITALS: BP 132/59; PULSE 48; RESP 16; TEMP 36.2; O2SAT 96
--- NOTE | 2023-04-24 13:16 | MHC.CM.PN ---
EMR REVIEWED,CM MET W/PT'S IRMA AT BEDSIDE, PER IRMA PLAN IS FOR PT TO RETURN HOME W/HOSPICE AND PT'S DECLINED HOSPICE CONSULT SHE HAD A CALL OUT TO PT'S [facility], IRMA IS CONCERNED ABOUT BEIG BILLED FOR TRANSPORT AND ASKING IF THIS [facility] HOWEVER WHEN CM CONTACTED [facility] AT 1:15PM [phone] AND [facility] FROM [facility] REPORTED PT IS NOT SERVICE CONNECTED AND WOULD NEED TO USE HIS MEDICARE PRODUCT FOR TRANSPORT. CLAUDE UNABLE TO FOLLOW-UP W/IRMA SHE HAS LEFT FOR AN APPT.
--- NOTE | 2023-04-24 14:14 | MHC.CM.PN ---
cm contacted [employer], [facility] need [facility] for [facility] and will fax cm form, [facility], [facility] pt may have a cost of $[address] transport home and they were unable to confirm if tranpsport would be cost free d/t pt discharging home on hospice which typically happens with other insurance plans.
--- NOTE | 2023-04-24 14:40 | MHC.CM.PN ---
PER [facility] IF HOSPITALIST NOTES ON DC PT UNABLE TO PARTICIPATE IN ADLS AND FAMILY REQUESTING AN INCREASE IN HOURS [facility] WILL BE ABLE TO INCREASE HIS HOME HEALTH HOURS.
[2023-04-24 16:00] VITALS: BP 112/60; PULSE 50; RESP 16; TEMP 36.4; O2SAT 98
[2023-04-24 19:31] VITALS: BP 115/59; PULSE 50; RESP 20; TEMP 36.4; O2SAT 99
[2023-04-24 23:03] VITALS: BP 119/69; PULSE 53; RESP 20; TEMP 36.2; O2SAT 98
[2023-04-24] MEDS: Melatonin 3 MG TABLET 6 MG PO (23:08)
[2023-04-24] MEDS: Loratadine 10 MG TABLET PO (23:08)
[2023-04-24] MEDS: Atorvastatin Calcium 40 MG TABLET PO (23:17)
[2023-04-25 00:21] VITALS: RESP 18
[2023-04-25] MEDS: 0.9 % Sodium Chloride Flush 3 ML SYRINGE IVFLUSH ×2 (00:21→10:57)
[2023-04-25 03:00] VITALS: BP 126/57; PULSE 51; RESP 18; TEMP 36.1; O2SAT 99
[2023-04-25] MEDS: Levothyroxine Sodium 88 MCG TABLET PO (05:26)
[2023-04-25 07:38] VITALS: BP 111/53; PULSE 55; RESP 20; TEMP 36.6; O2SAT 98
--- NOTE | 2023-04-25 10:14 | PM.PNCARD ---
Subjective Subjective Date of Service: 04/25/23 Interval history: No new complaints. No further episodes of atrial fibrillation/flutter or any other major issues. Review of Systems Review of Systems Yes all other systems are reviewed and are negative Constitutional: Reports as per HPI and Reports no additional constitutional complaints Eyes: Reports as per HPI and Denies no additional eye complaints Denies system reviewed and no additional complaints, except as documented and Reports as per HPI Cardiovascular: Reports as per HPI, Reports no additional cardiovascular complaints, Denies acrocyanosis, Denies cool extremities, Denies chest pain, Denies leg edema, Denies lightheadedness, Denies palpitations and Denies dyspnea Respiratory: Reports as per HPI, Denies no additional respiratory complaints and Denies dyspnea Gastrointestinal: Reports as per HPI and Denies no additional gastrointestinal complaints Genitourinary: Reports no additional male genitourinary complaints and Reports as per HPI Musculoskeletal: Reports no additional musculoskeletal complaints and Reports as per HPI Skin/Breast: Reports system reviewed and no additional complaints, except as docu Reports system reviewed and no additional complaints, except as documented and Reports as per HPI Psychiatric: Reports no additional psychiatric complaints and Reports as per HPI Endocrine: Reports no additional endocrine complaints, Reports as per HPI and Denies palpitations Hematologic/Lymphatic: Reports no additional hematologic/lymphatic complaints and Reports as per HPI Allergic/Immunologic: Reports no additional allergic/immunologic complaints and Reports as per HPI Physical Exam Vital Signs: Last Vital Signs Temp 97.8 F 04/25/23 07:38 Pulse 55 04/25/23 07:38 Resp 20 04/25/23 07:38 BP 111/53 L 04/25/23 07:38 Pulse Ox 98 04/25/23 07:38 O2 Del Method Nasal Cannula 04/25/23 07:38 O2 Flow Rate 3 04/25/23 07:38 BMI result Body Mass Index 26.8 Const General: comfortable and no acute distress Orientation/consciousness: patient oriented x3 HEENT Other: Unremarkable Head: Yes normal to inspection Neck Neck: Yes normal visual inspection Chest Chest palpation & inspection: normal inspection of the chest Resp Auscultation: crackles Cardio Palpation: normal PMI Heart sounds: S1 normal heart sound present, S2 normal heart sound present, no gallops, no murmurs and no rubs GI Palpation (GI): Soft to palpation Back/Spine/Pelvis Other: unremarkable Skin General skin exam: no rashes or lesions noted Neuro General: patient oriented x3 Extrem General: Yes normal to inspection Psych Mental Status: mental status grossly normal Objective Labs and Meds 04/23/23 06:20 04/24/23 07:54 Progress Note: A&P Assessment and plan (1) Atrial flutter with rapid ventricular response: Status: Resolved (2) Sinus bradycardia: Status: Acute (3) Left bundle branch block: Status: Acute (4) Pulmonary fibrosis: Status: Acute (5) Bedbound: Status: Acute Plan As per today's discussion, keep on amiodarone ensure he can stay at home and not get recurrent atrial fibrillation. We have discussed the use of amiodarone in patients with pre-existing pulmonary disease and in his case the only reason is to keep him at home and avoid hospitalization. May stop the metoprolol. For the foreseeable future, he is also on Eliquis. Otherwise, considering the progressive neurological illness and bed-bound state, recommend hospice evaluation. is agreeable and she would like to get the hospice from [place]. Discussed with Dr. Oneill. Time Spent With Patient Time: Total time managing care of this patient today 42 minutes. This includes time spent in review of chart, laboratory data, imaging studies, review of telemetry, counseling patient, family, discussion with hospitalist, documentation, coordination of care. Progress Note: Quality Stroke Does the patient have a stroke diagnosis?: No Procedures Date of Service Date of Service: 04/25/23
--- NOTE | 2023-04-25 10:24 | PM.DS ---
DS: Providers Provider Date of Service: 04/25/23 Date of admission: 04/22/23 08:49 Primary care physician: Rosales Ramirez MD Consults: 04/23/23 12:43 Consult to Wound Care Routine Reason for consultation: buttocks stage 1, heels red 04/24/23 08:46 Consult to Cardiology Routine Consulting Provider[place] [facility] Reason for consultation: afib, heart failure Has provider been notified: Yes DS: Diagnosis Discharge Diagnosis (1) Atrial flutter with rapid ventricular response: Status: Resolved (2) Sinus bradycardia: Status: Acute (3) Pulmonary fibrosis: Status: Acute (4) Bedbound: Status: Acute DS: Summary Hospital Course Hospital Course: admission hpi Chief Complaint: Fast heart rate This is a 82-year-old male with pertinent history of cortical basal degeneration, 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 Unable to obtain history from the patient due to cortical basal degeneration. He has baseline right-sided weakness and difficulty with speech. History obtained from at bedside. The stated that she takes the patient's blood pressure and heart rate twice a day before administering metoprolol. In the evening prior to presentation, she noticed that the patient heart rate was in the 140s with blood pressure in the high 80s. Patient denied palpitations or chest discomfort. No fever or chills. Has a chronic cough that has been going on for many years which is unchanged. No orthopnea or PND. No leg swelling. No shortness of breath, abdominal pain, changes in urinary or bowel habits. In the emergency department, patient was found to be hypotensive and in AFib with RVR. He was resuscitated with IV crystalloids and given IV diltiazem, IV metoprolol and IV digoxin. hospital course: Hypothyroidism: levothyroxine Mixed hyperlipidemia: statin Chronic hypoxemic resp failure due to pulm fibrosis: On chronic . Congestive heart failure with preserved ejection fraction: Not on diuretics. Time Attestation Discharge coordination time: Greater than 30 minutes Quality: Safe Use of Opioids Does Pt have an Active Cancer Diagnosis on the Problem List?: No Quality: Stroke Does the patient have a stroke diagnosis?: No Physical Exam Vital Signs: Vital Signs: Last Vital Signs Temp 97.8 F 04/25/23 07:38 Pulse 55 04/25/23 07:38 Resp 20 04/25/23 07:38 BP 111/53 L 04/25/23 07:38 Pulse Ox 98 04/25/23 07:38 O2 Del Method Nasal Cannula 04/25/23 07:38 O2 Flow Rate 3 04/25/23 07:38 BMI result Body Mass Index 26.8 DS: Data Data Completed and Pending Labs on day of discharge: Preliminary micro results at discharge 04/22/23 06:18 Blood Culture - Preliminary Blood - Venous No growth after 48 hours. 04/22/23 05:49 Blood Culture - Preliminary Blood - Venous No growth after 48 hours. Discharge Plan Discharge Anticipated Discharge Date/Time: 04/25/23 10:17 Patient Disposition: Home Health Service Discharge Diagnosis: Atrial fibrilation with rapid rate Referrals: [facility] being [facility] through the [place] [Other] - 1 Week Rosales Ramirez MD [Primary Care Provider] - 1 Week Discharge Medications: New amiodarone [Pacerone] 200 mg tablet See Rx Instructions .ROUTE .COMPLEX Qty: 120 0RF Rx Instructions: take 2 tabs by mouth twice daily for 6 days, then 1 take 1 tablet by mouth daily Continued levothyroxine [Levoxyl] 88 mcg tablet 88 mcg PO DAILY@0600 Eliquis 5 mg Tablet 5 mg PO BID Qty: 60 0RF Rx Instructions: WAS HELD FOR 3 DOSES 02/21/23-02/22/23 zinc acetate 50 mg (zinc) Capsule 50 mg PO DAILY atorvastatin [Lipitor] 80 mg tablet 40 mg PO BEDTIME cholecalciferol (vitamin D3) 50 mcg (2,000 unit) capsule 50 mcg PO DAILY cetirizine [Zyrtec] 10 mg tablet 10 mg PO BEDTIME Discontinued metoprolol tartrate 25 mg tablet 12.5 mg PO BID Protocol: Hold for SBP/HR < HOLD for SBP < : 90 HOLD for HR < : 60 Discharge Orders: Discharge Order (Routine); Ordered 04/25/23 Ordered By: Mendez Oneill Diet: Advance to usual diet Activity on Discharge: As tolerated Stand Alone Forms: Patient Portal Discharge page Print Language: Citizen Of [place] Care Plan Goals: heart rate control hospice at home Health Concerns: pulmonary fibrosis atrial fibrilation heart failure Plan of Treatment: stop taking metoprolol start taking amiodarone 400 mg twice daily for 1 week, then 200 mg once daily [facility] Assessment: see above Discharge Date/Time: 04/25/23 14:28
--- NOTE | 2023-04-25 10:48 | MHC.CM.PN ---
Per Rounds discussion, Patient is medically cleared for dc to home today. Patient will dc to home today at [facility], via [facility]. CM Spoke with Patient's /Jessica Portillo at listed #. Per Jessica Portillo, she is working with a PA/Carrillo Escudero through the [facility] in [place], who has made a referral to Hospice. Jessica Portillo explained that she already has the hospital bed and the jamie lift and was caring for Patient [facility]. Jessica Portillo would like Patient to return home today under her care until Hospice services are in place. has been made aware of this plan and is in agreement.
[2023-04-25] MEDS: Apixaban 5 MG TABLET PO (10:56)
[2023-04-25] MEDS: Cholecalciferol (Vitamin D3) 25 MCG TABLET 50 MCG PO (10:56)
[2023-04-25] MEDS: Amiodarone HCL 200 MG TABLET 400 MG PO (10:56)
[2023-04-25] MEDS: Furosemide 40 MG TABLET PO (10:56)
--- NOTE | 2023-04-25 10:58 | MHC.CM.PN ---
BS transportation prior auth request has been uploaded into [employer].
--- NOTE | 2023-04-25 13:38 | MHC.CM.PN ---
CLAUDE faxed requested clinicals to Michelle at the [facility] @ fax # [phone], who will be working on authorization for Hospice @ [facility].
--- NOTE | 2023-04-25 14:44 | MHC.CM.PN ---
Per Karen from [facility] request, the dc summary has been faxed to her at [phone], so that [facility] can be in place until Hospice takes over..
== END 2023-04-25 14:28 | disposition home health service (06) | DRG 309 ==
LOC: HO.ED 04:20 → HO.EDOVER 06:03 → HO.IMC 20:33
PROVIDERS: Admitting Provider Student in an Organized Health Care Education/Training Program; Emergency Provider Internal Medicine; PCP Internal Medicine; Referring Provider Internal Medicine; Visit Provider Internal Medicine
DX: I48.0 Paroxysmal atrial fibrillation (principal); I50.32 Chronic diastolic (congestive) heart failure; J96.11 Chronic respiratory failure with hypoxia; Z66 Do not resuscitate; E03.9 Hypothyroidism, unspecified; I44.7 Left bundle-branch block, unspecified; I95.9 Hypotension, unspecified; G31.85 Corticobasal degeneration; I25.10 Atherosclerotic heart disease of native coronary artery without angina pectoris; Z95.1 Presence of aortocoronary bypass graft; J84.10 Pulmonary fibrosis, unspecified; E78.2 Mixed hyperlipidemia; Z20.822 Contact with and (suspected) exposure to COVID-19; Z74.01 Bed confinement status; Z99.81 Dependence on supplemental oxygen; Z79.01 Long term (current) use of anticoagulants; Z79.890 Hormone replacement therapy; Z79.899 Other long term (current) drug therapy
CPT/HCPCS: 36415; 71045; 80048; 80053; 83605; 83880; 84484; 85025; 87040; 87635; 93005; 93306; 99285; J1160; J1940; Q9957

== ENCOUNTER → 2023-04-22 05:59 | Outpatient (BNV) | payer OTHER, MEDICARE, SELFPAY | PROVIDERS: Admitting Provider Student in an Organized Health Care Education/Training Program; Emergency Provider Internal Medicine; PCP Internal Medicine; Visit Provider Student in an Organized Health Care Education/Training Program | DX: I48.92 Unspecified atrial flutter (principal); R00.1 Bradycardia, unspecified; J84.10 Pulmonary fibrosis, unspecified; Z74.01 Bed confinement status | CPT/HCPCS: 99222; 99232; 99233; 99238; 99499 ==

== ENCOUNTER → 2023-04-22 08:48 | Outpatient (BNV) | payer OTHER, MEDICARE, SELFPAY | PROVIDERS: Admitting Provider Student in an Organized Health Care Education/Training Program; Emergency Provider Internal Medicine; PCP Internal Medicine; Visit Provider Internal Medicine | DX: I48.91 Unspecified atrial fibrillation (principal); I44.7 Left bundle-branch block, unspecified; I44.0 Atrioventricular block, first degree; I49.3 Ventricular premature depolarization | CPT/HCPCS: 93010 ==

== ENCOUNTER 2023-04-22 08:49 | Outpatient (BNV) | payer OTHER, MEDICARE, SELFPAY | END 2023-04-24 07:00 | PROVIDERS: Admitting Provider Student in an Organized Health Care Education/Training Program; Emergency Provider Internal Medicine; PCP Internal Medicine; Visit Provider Internal Medicine | DX: I34.81 Nonrheumatic mitral (valve) annulus calcification (principal); I48.91 Unspecified atrial fibrillation | CPT/HCPCS: 93306 ==

== ENCOUNTER → 2023-04-22 08:49 | Outpatient (BNV) | payer OTHER, MEDICARE, SELFPAY | PROVIDERS: Admitting Provider Student in an Organized Health Care Education/Training Program; Emergency Provider Internal Medicine; PCP Internal Medicine; Visit Provider Internal Medicine | DX: I48.92 Unspecified atrial flutter (principal); R00.1 Bradycardia, unspecified; I44.7 Left bundle-branch block, unspecified; J84.10 Pulmonary fibrosis, unspecified; Z74.01 Bed confinement status | CPT/HCPCS: 99223; 99233 ==